=== PATIENT | male | born 1945 | race Caucasian/White ===

== ENCOUNTER 2016-11-16 10:54 | Emergency (ER) | payer OTHER ==
[~2016-11-16] VITALS: Ht 162.6 cm; Wt 57.4 kg
[~2016-11-16 10:54] MED LIST: ALBU0.5N2 NEB; ALBUAER19 INH; AMLO10TA4 PO; ASPI81TA28 PO; DOCU100C31 PO; FLUT27.5 NAE; HYDR-3983 PO; IPRA0.037 NAE; OMEP20CA9 PO; RANI150T3 PO; SIMV20TA2 PO; SULF800T23 PO; SYMIN8045 INH; TACR1CAP5 PO; TAMS0.4C38 PO; TEMA-79 PO; vitamin b12 PO
[2016-11-16 10:56] VITALS: BP 158/65; PULSE 73; TEMP 36.9; O2SAT 97; Ht 162.6 cm; Wt 57.4 kg
[2016-11-16] MEDS ORDERED: IPRA0.06 NAE (11:16)
[2016-11-16] MEDS ORDERED: ALBU0.633 NEB (11:16)
[2016-11-16] MEDS ORDERED: FLUT27.53 NAE (11:16)
[2016-11-16] MEDS ORDERED: VNTHFA/IN INH (11:16)
[2016-11-16] MEDS ORDERED: CYAN500T PO (11:29)
[2016-11-16] MEDS ORDERED: NZRCR TOP (11:29)
[2016-11-16] MEDS ORDERED: METO50TA16 PO (11:29)
[2016-11-16] MEDS ORDERED: KETO2SHA TOP (11:29)
[2016-11-16] MEDS ORDERED: ATOR-22 PO (11:29)
[2016-11-16] MEDS ORDERED: NTRGSL/4 UT (11:29)
[2016-11-16] MEDS ORDERED: [UNRECOGNIZED DRUG - CODE] TOP (11:29)
[2016-11-16] MEDS ORDERED: IPRASOL4 INH (11:29)
[2016-11-16] MEDS ORDERED: HYDCR1CL TOP (11:29)
--- NOTE | 2016-11-16 11:38 | EMERGENCY ROOM VISIT NOTE ---
ED Visit Note First contact with patient: 11:00 CHIEF COMPLAINT: Left Hand and wrist injury HISTORY OF PRESENT ILLNESS: This 71-year-old male patient presents to the emergency department, ambulatory, complaining of pain in the left hand and wrist after a fall 2 days ago. The patient states while walking into the bathroom, he tripped over a step stool, and fell on his outstretched hand. The patient states he did hit his head on the carpet, however the majority of the impact was on the patient's left hand and wrist. The patient denies dizziness, paresthesias, headache, visual disturbances, tinnitus, or other concerning head symptoms. The patient states he is having increased swelling and pain on the lateral aspect of the left hand, radiating into the wrist, and up the arm. The patient is able to move their wrist. The patient states the pain is throbbing and 8/10. No laceration, no weakness. No numbness or tingling. The patient denies any other injury. The patient is able to move their fingers and elbow without difficulty. The patient has not had a previous fracture to this wrist, but did have a forearm fracture. The patient has taken his regularly prescribed [place] 7.5/325 for the pain with only minimal improvement. The patient denies fever, warmth, open wound, body aches, chills. He states bruising and mild redness has been traveling up the arm. REVIEW OF SYSTEMS: A 6 system review of systems was performed with positives and pertinent negatives in the HPI. ALLERGIES: Bee venom MEDICATIONS: Please see list. I did personally review the patient's medications with him today at bedside. PMH: Heart disease, COPD, GERD, BPH, liver transplant, hyperlipidemia, hypertension SOCIAL HISTORY: The patient lives locally alone. He denies drug, alcohol use. The patient does admit to smoking one half pack cigarettes per day. PHYSICAL EXAM: Vital Signs: Reviewed Nurse's notes, vital signs stable. GENERAL : This is a 71-year-old male, in no acute distress, but appears to be in pain, well-developed, well-nourished. NEURO: Alert and oriented to person place and time. Normal sensation to light and sharp touch. Normal mini mental status exam. HEAD: Normocephalic. There are some superficial abrasions on the patient 's forehead. EYES: Pupils are equal round and reactive to light and accommodation. EOMs are full and optic discs and fundi are normal. There is no swelling or discoloration of the tissue surrounding the eyes. EARS: External auditory canals clear without blood. NOSE: Patent without tenderness. No septal hematoma. FACE: No facial tenderness. NECK: Supple. There is no cervical spine tenderness. The patient does not have tenderness with movement of the neck. MUSCULOSKELETAL: There is no deformity of the left wrist or hand. There is tenderness and edema over neural aspect of the hand, and the anterior aspect of the wrist. There is no snuff box tenderness. Range of motion is full, however patient is hesitant to move wrist due to pain. There is no tenderness of the elbow, hand or fingers. Health Sciences Manager strength 3/5. Radial pulse 2+. SKIN: Normal and intact. The hand is warm and well perfused with capillary refill less than 2 seconds. RADIOLOGY: X-Ray Left Hand: FINDINGS: Osteopenia. Degenerative changes of the first carpometacarpal joint and distal interphalangeal joint of the second finger. Altered configuration of the distal ulnar metaphysis, consistent with fracture deformity. Cortical step-off along the ventral aspect of the distal radial metaphysis best appreciated on lateral view. Mild apex volar angulation at the fracture site. IMPRESSION: 1. Distal radial metaphyseal fracture with apex volar angulation (Colles' fracture). 2. Deformity of the distal ulnar metaphysis may represent acute or chronic fracture deformity. 3. Osteopenia. X-Ray Left Wrist: FINDINGS: 5 views of left wrist are obtained. No prior studies are available for comparison at the time of dictation. The skeletal structures are osteopenic. There is chronic posttraumatic deformity of the distal radius and ulna. No definite acute fracture is clearly seen. There is significant soft tissue edema around the wrist. Chondrocalcinosis is noted in the triangular fibrocartilage. Moderate arthritic change is present at the first carpometacarpal articulation. A metallic foreign body projects over the second metacarpal on the AP view. IMPRESSION: 1. There is soft tissue swelling around the wrist. 2. There is chronic posttraumatic deformity of the distal left radius and ulna. Although no definite acute fracture line is seen, an acute on chronic fracture would be difficult to exclude. Clinical correlation will be required. Consider short-term radiographic follow-up. 3. Osteopenia and degenerative change as above. EMERGENCY DEPARTMENT COURSE: I examined the patient. An X-ray of the left hand and wrist was reviewed by myself and radiologist and showed Colles' fracture. An orthoglass volar splint was placed under my direction and the position was satisfactory. Neurovascular status rechecked and intact. The patient was discharged home in good condition. DIFFERENTIAL DIAGNOSIS: Fracture, contusion, sprain, cellulitis, head injury, and others DIAGNOSIS: Colles' fracture DISCHARGE INSTRUCTIONS & TREATMENT: ORTHOPEDIC INSTRUCTIONS: You may take your regularly prescribed Vicodin every 6 hours, but speak with your prescriber regarding this. Ibuprofen(Motrin, Advil) may be used for fever or pain. Use 600mg every six hours as needed. Take with food. Avoid using more than 2400mg in a 24 hour period. Do not use 2400mg per day for more than three consecutive days without physician direction. Prolonged inappropriate use can lead to stomach upset or ulcers. (AND/OR) Acetaminophen(Tylenol) may be used for fever or pain. Use 1000mg every six hours as needed. Avoid using more than 3000mg in a 24 hour period. *Take as directed by your PCP and surgeon. Ice compresses for 20 minutes at a time four times daily for 2-3 days. Rest and elevate your injury. Do not get the splint wet. If your splint feels excessively tight, you have worsening pain, develop numbness or tingling, or your digits appear blue, loosen the shabbir wrap. Then reapply the shabbir wrap gently without removing the splint. If your symptoms are not quickly relieved return to the ER for re- evaluation. Return to the ER immediately for any numbness, tingling, severe pain, extreme swelling in the extremity or as needed. Case Management scheduled you with a follow-up with [facility]. Please keep this appointment and follow-up with them for further management. Follow-up with your primary care physician in 2 to 3 days for a recheck of your current condition. Problem List Medical Problems: (1) Abdominal mass Status: Resolved (2) Emphysema of lung Status: Chronic (3) Hiatal hernia Status: Chronic (4) Hypertension Status: Chronic (5) Swelling of right hand Status: Resolved Surgical Problems: (1) H/O liver transplant Status: Resolved (2) Hx of CABG Status: Resolved Current/Historical Medications Scheduled Albuterol Sulfate (Albuterol Sulfate), 1 VIAL NEB Q6H Amlodipine Besylate (Norvasc), 10 MG PO QAM Atorvastatin (Lipitor), 10 MG PO QPM Budesonide/Formoterol Fumarate (Symbicort 80-4.5 Mcg/Act), 2 PUFFS INH BID [place] (Crude) ([place] Tar), 1 APPLN TOP Q2D Cyanocobalamin (Vitamin B-12), 500 MCG PO DAILY Docusate Sodium (Docusate Sodium), 100 MG PO BID Fluticasone Furoate (Flonase Sensimist), 2 SPRAY TWIN BID Hydrocortisone 1% (Hydrocortisone 1%), 1 APPLN TOP WK Ipratropium [place] (Nasal) (Ipratropium [place]), 2 SPRAY TWIN QID Ipratropium-Albuterol (Duoneb), 3 ML INH Q6H Ketoconazole (Ketoconazole), 1 APPLN TOP DAILY Ketoconazole (Topical) (Ketoconazole), 1 APPLN TOP Q2D Metoprolol Tartrate (Lopressor) (Lopressor), 50 MG PO BID Nitroglycerin (Nitrostat), 0.4 MG UT PRN Ranitidine Hcl (Zantac), 150 MG PO HS Sulfamethoxazole-Trimethoprim (Bactrim Ds 800MG/160MG), 1 TABLET PO 3XWK Tacrolimus (Prograf), 1 MG PO BID Tamsulosin Hcl (Flomax), 0.4 MG PO QPM Temazepam (Restoril), 1 TAB PO HS Scheduled PRN Hydrocodone/Acetaminophen 7.5MG/325MG ([place] 7.5MG/325MG), 1 TABLET PO Q8H PRN for Severe Pain Allergies Coded Allergies: Bee Venom (Verified Allergy, Unknown, Unknown, 06/03/15) Source-Reported by PT Uncoded Allergies: PEAS (Allergy, Unknown, UNKNOWN, 11/16/16) Vital Signs Date Time Temp Pulse Resp B/P (MAP) Pulse Ox O2 Delivery O2 Flow Rate FiO2 11/16/16 10:56 36.9 73 18 158/65 97 Room Air Departure Information Impression Primary Impression: Colles' fracture of left radius Dispostion Home / Self-Care Condition GOOD Referrals No Doctor, Assigned (PCP) Patient Instructions [facility] Additional Instructions ORTHOPEDIC INSTRUCTIONS: You may take your regularly prescribed Vicodin every 6 hours, but speak with your prescriber regarding this. Ibuprofen(Motrin, Advil) may be used for fever or pain. Use 600mg every six hours as needed. Take with food. Avoid using more than 2400mg in a 24 hour period. Do not use 2400mg per day for more than three consecutive days without physician direction. Prolonged inappropriate use can lead to stomach upset or ulcers. (AND/OR) Acetaminophen(Tylenol) may be used for fever or pain. Use 1000mg every six hours as needed. Avoid using more than 3000mg in a 24 hour period. *Take as directed by your PCP and surgeon. Ice compresses for 20 minutes at a time four times daily for 2-3 days. Rest and elevate your injury. Do not get the splint wet. If your splint feels excessively tight, you have worsening pain, develop numbness or tingling, or your digits appear blue, loosen the shabbir wrap. Then reapply the shabbir wrap gently without removing the splint. If your symptoms are not quickly relieved return to the ER for re- evaluation. Return to the ER immediately for any numbness, tingling, severe pain, extreme swelling in the extremity or as needed. Case Management scheduled you with a follow-up with [facility]. Please keep this appointment and follow-up with them for further management. Follow-up with your primary care physician in 2 to 3 days for a recheck of your current condition. Problem Qualifiers Primary Impression: Colles' fracture of left radius Encounter type: initial encounter Fracture type: closed Qualified Codes: S52.532A - Colles' fracture of left radius, initial encounter for closed fracture
--- NOTE | 2016-11-16 11:53 | DIAGNOSTIC IMAGING REPORT ---
LEFT HAND MIN 3 VIEWS ROUTINE CLINICAL HISTORY: 71 years-old Male presenting with swelling/pain s/p FOOSH. TECHNIQUE: Frontal, oblique, and lateral views of the left hand were obtained. COMPARISON: None. FINDINGS: Osteopenia. Degenerative changes of the first carpometacarpal joint and distal interphalangeal joint of the second finger. Altered configuration of the distal ulnar metaphysis, consistent with fracture deformity. Cortical step-off along the ventral aspect of the distal radial metaphysis best appreciated on lateral view. Mild apex volar angulation at the fracture site. IMPRESSION: 1. Distal radial metaphyseal fracture with apex volar angulation (Colles' fracture). 2. Deformity of the distal ulnar metaphysis may represent acute or chronic fracture deformity. 3. Osteopenia. Electronically signed by: Ciro Saha M.D. 11/16/2016 11:52 AM Dictated Date/Time: 11/16/2016 11:48 AM
--- NOTE | 2016-11-16 11:56 | DIAGNOSTIC IMAGING REPORT ---
LEFT WRIST 5 VIEWS CLINICAL HISTORY: Recent fall with left wrist pain. FINDINGS: 5 views of left wrist are obtained. No prior studies are available for comparison at the time of dictation. The skeletal structures are osteopenic. There is chronic posttraumatic deformity of the distal radius and ulna. No definite acute fracture is clearly seen. There is significant soft tissue edema around the wrist. Chondrocalcinosis is noted in the triangular fibrocartilage. Moderate arthritic change is present at the first carpometacarpal articulation. A metallic foreign body projects over the second metacarpal on the AP view. IMPRESSION: 1. There is soft tissue swelling around the wrist. 2. There is chronic posttraumatic deformity of the distal left radius and ulna. Although no definite acute fracture line is seen, an acute on chronic fracture would be difficult to exclude. Clinical correlation will be required. Consider short-term radiographic follow-up. 3. Osteopenia and degenerative change as above. Electronically signed by: Rome Armendariz M.D. 11/16/2016 11:54 AM Dictated Date/Time: 11/16/2016 11:49 AM
--- NOTE | 2016-11-16 23:26 | EMERGENCY ROOM VISIT NOTE ---
ED Visit Note First contact with patient: 11:00 HPI: left wrist/forearm pain, swelling after mechanical fall. PE: AFVSS, NAD Minor forehead abrasion RRR, no murmurs CTAB Abd soft NT/ND Ext: Mild edema to left wrist/forearm, distal pms intact. Neuro: grossly intact Plan: XRay with ?celeste fx. Plan for splint and ortho f/u. I reviewed the patient's past medical history, medications, and visit nursing notes. I discussed the case with the physician assistant press operator, examined the patient, and agree with the findings and plan as documented in the physician assistants note.
== END 2016-11-16 12:43 | disposition home or self-care (01) ==
LOC: C.EDB 10:55 → C.EDD 12:43
DX: S52.532A Colles' fracture of left radius, initial encounter for closed fracture (principal); W01.0XXA Fall on same level from slipping, tripping and stumbling without subsequent striking against object, initial encounter; I10 Essential (primary) hypertension; E78.5 Hyperlipidemia, unspecified; I51.9 Heart disease, unspecified; J44.9 Chronic obstructive pulmonary disease, unspecified; K21.9 Gastro-esophageal reflux disease without esophagitis; J43.9 Emphysema, unspecified; F17.200 Nicotine dependence, unspecified, uncomplicated; Z94.4 Liver transplant status; Z79.899 Other long term (current) drug therapy; Z95.1 Presence of aortocoronary bypass graft; Z91.030 Bee allergy status

== ENCOUNTER → 2016-11-25 | Outpatient (CLI) | payer OTHER ==
[~2016-11-25] MED LIST changes: -ALBU0.5N2 NEB; +ALBU0.633 NEB; -ALBUAER19 INH; -ASPI81TA28 PO; +ATOR-22 PO; +CYAN500T PO; -FLUT27.5 NAE; +FLUT27.53 NAE; +HYDCR1CL TOP; -IPRA0.037 NAE; +IPRA0.06 NAE; +IPRASOL4 INH; +KETO2SHA TOP; +METO50TA16 PO; +NTRGSL/4 UT; +NZRCR TOP; -OMEP20CA9 PO; -SIMV20TA2 PO; +[UNRECOGNIZED DRUG - CODE] TOP; -vitamin b12 PO
== END | disposition home or self-care (01) ==
LOC: C.RDSM 11:00
PROVIDERS: ATTEND Physical Medicine & Rehabilitation Sports Medicine
DX: S60.212A Contusion of left wrist, initial encounter (principal); X58.XXXA Exposure to other specified factors, initial encounter

== ENCOUNTER 2019-09-06 09:14 | Observation (INO) ==
[2019-09-06] MEDS ORDERED: NITROGLYCERIN SL 0.4 MG/TAB TAB SL STA ×2 (09:36→10:22)
[2019-09-06] MEDS ORDERED: ASPIRIN CHEW 324 MG PO STA (09:36)
--- NOTE | 2019-09-06 09:44 | Emergency Department Note ---
History of Present Illness General Chief Complaint: Chest Pain Stated Complaint: Endo patient, Chest pain Time Seen by Provider: 09/06/19 09:16 History of Present Illness Provider Complaint: chest pain Onset (ago): hour(s) 2 Duration: improved Onset: during rest Pain Location: left chest Pain Radiation: none Severity: moderate Maximum Pain Intensity: 6 Current Pain Intensity: 0 Quality: + tightness Relieved By: + nitroglycerin Exacerbated By: + nothing Context: no recent illness, no recent surgery, no recent immobilization, no recent travel, no trauma/injury, no new medications and no history of DVT/PE Associated symptoms: + dyspnea; no nausea, no diaphoresis, no syncope and no cough 74-year-old male with history of liver transplant presents to the emergency department for chest pain. Patient was in the preop area for colonoscopy and endoscopy earlier today and started having chest pain. He is brought back to the endoscopy suite where he continued to have chest pain. Anesthesia became concerned and gave him 1 sublingual nitro conduct an EKG and then brought him down to the emergency department. Home Medications Home Medications Medication Instructions Recorded Confirmed Type docusate sodium 100 mg PO BID PRN #0 06/16/13 09/06/19 History hydrocodone-acetaminophen 1 tab PO QID PRN #0 tab 06/16/13 09/06/19 History tamsulosin [Flomax] 0.8 mg PO HS #0 cap 05/04/15 09/06/19 History atorvastatin [Lipitor] 10 mg PO DAILY #0 tab 11/16/16 09/06/19 History cyanocobalamin (vitamin B-12) 500 mcg PO DAILY #0 tab 11/16/16 09/06/19 History ipratropium bromide 2 spray INTRANASAL TID #0 11/16/16 09/06/19 History metoprolol tartrate 25 mg PO BID #0 11/16/16 09/06/19 History nitroglycerin 0.4 mg SUBLINGUAL TID PRN #0 11/16/16 09/06/19 History albuterol sulfate 2 puff INHALATION Q6H PRN #0 10/19/17 09/06/19 History cetirizine [Zyrtec] 10 mg PO DAILY #0 10/19/17 09/06/19 History lisinopril 10 mg PO QAM 09/07/18 09/06/19 History tacrolimus 1 mg PO Q12H 09/07/18 09/06/19 History aspirin 81 mg PO QAM 10/23/18 09/06/19 History fluticasone propionate 1 spray INTRANASAL DAILY 10/23/18 09/06/19 History gabapentin 100 mg PO HS 10/23/18 09/06/19 History ipratropium-albuterol 3 ml INHALATION QID PRN 10/23/18 09/06/19 History isosorbide mononitrate 60 mg PO QAM 10/23/18 09/06/19 History sodium bicarbonate 1,300 mg PO BID 10/23/18 09/06/19 History tiotropium 2.5 mcg-olodaterol 2.5 2 puffs INH DAILY 03/20/19 09/06/19 History mcg/actuation mist for inhalation peg 3350-electrolytes 236 240 ml PO .COMPLEX #4000 ml 09/03/19 09/06/19 Rx gram-22.74 gram-6.74 gram-5.86 gram solution Allergies Allergy/AdvReac Type Severity Reaction Status Date / Time bee venom protein (honey bee) Allergy Mild swelling Verified 09/06/19 10:48 aspirin AdvReac Intermediate INTERNAL Verified 09/06/19 10:48 BLEEDING, TOLD NOT TO TAKE LG DOSE peas AdvReac nausea and Verified 09/06/19 10:48 vomiting Past Med/Surg History Medical History (Updated 09/06/19 @ 11:31 by Pipo Acevedo) Anemia CAD (coronary artery disease), [place] coronary artery CKD (chronic kidney disease) stage 4, GFR 15-29 ml/min Colon cancer radiation - a few months ago follows with cancer center COPD exacerbation (Inactive) Degenerative disc disease Dysphagia Hiatal hernia (Chronic) History of cirrhosis of liver Kidney failure no dialysis Lung nodule just watching Myocardial Infarction 2011 (FOUND ON EKG/PT DID NOT KNOW) Poor historian Swelling of right hand (Resolved) Surgical History H/O liver transplant (Resolved) 1992 History of anesthesia reaction URINARY RETENTION History of bronchoscopy History of cataract surgery RT/LEFT History of cholecystectomy History of colonoscopy History of coronary artery bypass graft 2013 cabg x 2 [facility] History of esophagogastroduodenoscopy (EGD) History of heart artery stent X 2 2012 History of liver biopsy History of open reduction and internal fixation (ORIF) procedure LEFT HIP History of tonsillectomy History of tooth extraction Patella fracture REPAIRED Family History Mother , age 92 old age Family history of diabetes mellitus Brother , diabetes does not remember age Family history of diabetes mellitus Cancer Father , CVA does not remember age No problems noted. Brother , age early 40s lymph nodes No problems noted. Sister , unknown No problems noted. Sister , COPD No problems noted. Sister No problems noted. Son No problems noted. Son No problems noted. Daughter No problems noted. Daughter No problems noted. 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 Feels Safe at Home: Yes Smoking Status: Current every day smoker Tobacco Type: cigarettes ; Age Started Using Tobacco: 13 ; Cigarettes Per Day: 1 1/2 pp a week ; Second Hand Exposure: No ; Hx Alcohol Use: No Hx Substance Use: No Childhood Exposure to Second-Hand Smoke: Yes caffeine: Yes (coffee twice a week ) during the past year weight has: decreased > 10 lbs Dental Care, Regularly: No Seatbelt Use: always Sunscreen Use: No Review of Systems A total of 10 systems reviewed and were otherwise negative Physical Exam Vital Signs Vital Signs - 24 hr 09/06/19 09:10 09/06/19 10:14 09/06/19 10:20 Temperature 37 C Temperature Source Oral Pulse Rate 69 98 H Pulse Rate [Apical] 98 H 73 Pulse Rhythm Regular Regular Pulse Rhythm [Apical] Regular Regular Pulse Strength Normal Pulse Strength [Apical] Normal Normal Respiratory Rate 16 18 22 Respiratory Effort / Characteristics Non-Labored Spontaneous Non-Labored Spontaneous Non-Labored Spontaneous Respiratory Depth Normal Normal Normal Respiratory Pattern Regular Regular Regular Blood Pressure 176/75 H Blood Pressure [Left Arm] 153/53 H 194/69 H Blood Pressure Mean 108 Blood Pressure Mean [Left Arm] 86 110 Blood Pressure Position Lying Blood Pressure Position [Left Arm] Sitting Lying Pulse Oximetry 100 96 100 Oxygen Delivery Method Oxymask Room Air Nasal Cannula Oxygen Flow Rate 2 2 Sepsis Recent Fever Within 48 Hours No Sepsis New/Unexplained Change in Mental Status No Sepsis Action Taken by Nursing No Action Required Physical Exam GENERAL: He is oriented to person, place, and time. He appears well-developed and well-nourished. He does not appear distressed. HENT: Exam performed. - Head: Normocephalic and atraumatic. - Right Ear: External ear normal. No mastoid tenderness. - Left Ear: External ear normal. No mastoid tenderness. - Mouth/Throat: The oropharynx is clear and moist. No trismus in the jaw. No dental abscesses or uvula swelling. No oropharyngeal exudate or tonsillar a bscesses. EYES: Conjunctivae and EOM are normal. Pupils are equal, round, and reactive to light. Right eye exhibits no discharge. Left eye exhibits no discharge. No scleral icterus. NECK: Normal range of motion. Neck supple. No JVD present. No spinous process tenderness present. No carotid bruit present. No rigidity. No tracheal deviation and normal range of motion present. No Brudzinski's sign and no Kernig's sign noted. CV: Normal rate, regular rhythm, normal heart sounds and intact distal pulses. There is no peripheral edema. Palpable radial pulses bue. PULM/CHEST: Effort normal and breath sounds normal. No respiratory distress. No stridor. He has no wheezes. He has no rales. - Chest Wall: He exhibits no tenderness. ABD: The abdomen is soft. Bowel sounds are normal. He has no distension. No mass is present. There is no tenderness. There is no rebound, no guarding, no Choudhary's sign and no tenderness at McBurney's point. Rovsig negative. MUSC/SKEL: Normal range of motion. There is no peripheral edema, tenderness or deformity. LYMPH: No cervical adenopathy. NEURO: He is alert and oriented to person, place, and time. He has normal strength. No cranial nerve deficit or sensory deficit. Coordination and gait normal. GCS eye subscore is 4. GCS verbal subscore is 5. GCS motor subscore is 6. Cerebellar tests wnl. SKIN: Skin is warm and dry. He is not diaphoretic. PSYCH: He has a normal mood and affect. Behavior is normal. Judgment and thought content normal. Course Course 0915: The patient was evaluated in room C12. A complete history and physical exam was performed. Prior to patient arrival anesthesiologist who was with the patient in the endoscopy suite came and informed about the patient. He did bring his EKG done that he conducted in the endoscopy suite. EKG showed a sinus rhythm with rate of 70. GA 176, QRS 150, QTc 496. Left bundle branch block present. Scar Bosa negative. I compared this EKG to an EKG from July 2019 which showed no significant change. 0938: Patient reported to the nursing staff that his chest pain is returning. 1 sublingual nitro and 1 aspirin 3 and 24 mg ordered for the patient. 1020: Vital signs stable. Labs and imaging within normal limits. Reports from nursing staff patient is reporting increasing chest pain again. Patient given another sublingual nitro and 2 mg morphine IV. We will plan on admitting the patient for chest pain. 1045: Vital signs stable. Discussed with Dr. Rankin [facility] hospitalist who agreed to admit the patient. Administered Medications Discontinued Medications Aspirin (Aspirin) 324 mg PO NOW STA Stop: 09/06/19 09:37 Last Admin: 09/06/19 09:40 Dose: 324 mg Documented by: [id number] Morphine Sulfate (Morphine Sulfate) 2 mg IV NOW STA Stop: 09/06/19 10:23 Last Admin: 09/06/19 10:26 Dose: 2 mg Documented by: [id number] Nitroglycerin (Nitrostat) 0.4 mg SL NOW STA Stop: 09/06/19 09:37 Last Admin: 09/06/19 09:40 Dose: 0.4 mg Documented by: [id number] Nitroglycerin (Nitrostat) 0.4 mg SL NOW STA Stop: 09/06/19 10:23 Last Admin: 09/06/19 10:24 Dose: 0.4 mg Documented by: [id number] Medical Decision Making Laboratory Data Result diagrams: 09/06/19 09:37 09/06/19 09:37 Labs: Lab Results 09/06/19 09/06/19 09/06/19 Range/Units 09:37 09:37 09:37 WBC 4.09 L (4.8-10.8) K/uL RBC 3.15 L (4.7-6.1) M/uL Hgb 9.2 L (14.0-18.0) g/dL Hct 27.4 L (42-52) % MCV 87.0 (80-100) fL MCH 29.2 (25-34) pg MCHC 33.6 (32-36) g/dL RDW Std Deviation 47.0 H (36.4-46.3) fL RDW Coeff of Álvaro 14.7 H (11.5-14.5) % Plt Count 169 (130-400) K/uL MPV 8.2 (7.4-10.4) fL Immature Gran % (Auto) 0.2 % Neut % (Auto) 72.0 % Lymph % (Auto) 15.6 % Isabella % (Auto) 11.0 % Eos % (Auto) 1.0 % Baso % (Auto) 0.2 % Immature Gran # (Auto) 0.01 (0.00-0.02) K/uL Neut # (Auto) 2.94 (1.4-6.5) K/uL Lymph # (Auto) 0.64 L (1.2-3.4) K/uL Isabella # (Auto) 0.45 (0.11-0.59) K/uL Eos # (Auto) 0.04 (0-0.5) K/uL Baso # (Auto) 0.01 (0-0.2) K/uL PT 11.4 (9.0-12.0) Seconds INR 1.1 (0.9-1.1) APTT 35.6 H (21.0-31.0) Seconds PTT Ratio 1.3 Sodium 133 L (136-145) mmol/L Potassium 4.7 (3.5-5.1) mmol/L Chloride 104 (98-107) mmol/L Carbon Dioxide 22 (21-32) mmol/L Anion Gap 7.0 (3-11) BUN 23 H (7-18) mg/dl Creatinine 2.27 H (0.6-1.4) mg/dl Est Cr Clr Drug Dosing 23.8 ml/min Est GFR ( Amer) 31.5 Est GFR (Non-Af Amer) 27.2 BUN/Creatinine Ratio 10.1 (10-20) Glucose 91 (70-99) mg/dl Calcium 8.6 (8.5-10.1) mg/dl Troponin I < 0.015 (0-0.045) ng/ml Lipase 59 L (73-393) U/L Imaging Data Chest x-ray: Radiologist's impression: XR chest 1V portable CLINICAL HISTORY: Chest Pain COMPARISON STUDY: 07/12/2019 FINDINGS: Prior median sternotomy. Lungs are clear. The diaphragms are smooth. IMPRESSION: No acute process. ACT 112: Negative or not required by law. The above report was generated using voice recognition software. It may contain grammatical, syntax or spelling errors. Electronically signed by: Yousuf Lawrence M.D. 09/06/2019 9:49 AM Dictated: 09/06/19948 Transcribed: 09/06/19948 ECG Data Rate (beats per minute): 71 Rhythm: normal sinus Findings: + LBBB (Established, sgarbosa negative.); no ST depression and no ST elevation Change: no significant change (EKG was done earlier today and in July 2019.) [facility] Narrative 0915: The patient was evaluated in room C12. A complete history and physical exam was performed. Prior to patient arrival anesthesiologist who was with the patient in the endoscopy suite came and informed about the patient. He did bring his EKG done that he conducted in the endoscopy suite. EKG showed a sinus rhythm with rate of 70. GA 176, QRS 150, QTc 496. Left bundle branch block present. Scar Bosa negative. I compared this EKG to an EKG from July 2019 which showed no significant change. 0938: Patient reported to the nursing staff that his chest pain is returning. 1 sublingual nitro and 1 aspirin 3 and 24 mg ordered for the patient. 1020: Vital signs stable. Labs and imaging within normal limits. Reports from nursing staff patient is reporting increasing chest pain again. Patient given another sublingual nitro and 2 mg morphine IV. We will plan on admitting the patient for chest pain. 1045: Vital signs stable. Discussed with Dr. Rankin [facility] hospitalist who agreed to admit the patient. Impression & Plan Chest pain Discharge Plan Visit Data Chief Complaint: Chest Pain Stated Complaint: Endo patient, Chest pain ED Provider: Pipo Acevedo Discharge Problem: Chest pain Patient Disposition: Being Evaluated by Hospitalist Forms Stand Alone Forms: [facility] [place] Prescriptions Prescriptions: No Action tiotropium-olodaterol 2.5-2.5 mcg/actuation mist 2 puffs INH DAILY RF: 0 hydrocodone-acetaminophen 7.5-325 mg Tablet 1 tab PO QID PRN (Reason: Allergy Symptoms) Qty: 0 RF: 0 docusate sodium 100 mg Tablet 100 mg PO BID PRN (Reason: Constipation) Qty: 0 RF: 0 tamsulosin [Flomax] 0.4 mg Capsule 0.8 mg PO HS Qty: 0 RF: 0 ipratropium bromide 0.03 % [place],Non-Aerosol 2 spray INTRANASAL TID Qty: 0 RF: 0 atorvastatin [Lipitor] 10 mg Tablet 10 mg PO DAILY Qty: 0 RF: 0 cyanocobalamin (vitamin B-12) 500 mcg Tablet 500 mcg PO DAILY Qty: 0 RF: 0 nitroglycerin 0.4 mg Tablet, Sublingual 0.4 mg sublingual TID PRN (Reason: Chest Pain) Qty: 0 RF: 0 metoprolol tartrate 25 mg Tablet 25 mg PO BID Qty: 0 RF: 0 cetirizine [Zyrtec] 10 mg Tablet 10 mg PO DAILY Qty: 0 RF: 0 albuterol sulfate 90 mcg/actuation Hfa Aerosol Inhaler 2 puff INHALATION Q6H PRN (Reason: copd) Qty: 0 RF: 0 peg 3350-electrolytes [Golytely] 236-22.74-6.74 -5.86 gram recon soln 240 ml PO .COMPLEX Qty: 4000 RF: 0 lisinopril 10 mg Tablet 10 mg PO QAM RF: 0 tacrolimus 1 mg Capsule 1 mg PO Q12H RF: 0 ipratropium-albuterol 0.5 mg-3 mg(2.5 mg base)/3 mL Solution For Nebulization 3 ml INHALATION QID PRN (Reason: Shortness Of Breath) RF: 0 aspirin 81 mg Tablet,Delayed Release (Dr/Ec) 81 mg PO QAM RF: 0 isosorbide mononitrate 60 mg Tablet Extended Release 24 Hr 60 mg PO QAM RF: 0 sodium bicarbonate 650 mg Tablet 1,300 mg PO BID RF: 0 gabapentin 100 mg Capsule 100 mg PO HS RF: 0 fluticasone propionate 50 mcg/actuation [place],Suspension 1 spray INTRANASAL DAILY RF: 0 Referrals Referrals: Imelda Lama PA-C [Primary Care Provider] - Discharge Problem: Chest pain Qualifiers: Chest pain type: unspecified Qualified Code(s): R07.9 - Chest pain, unspecified
--- NOTE | 2019-09-06 09:51 | XRay Report ---
XR chest 1V portable CLINICAL HISTORY: Chest Pain COMPARISON STUDY: 07/12/2019 FINDINGS: Prior median sternotomy. Lungs are clear. The diaphragms are smooth. IMPRESSION: No acute process. ACT 112: Negative or not required by law. The above report was generated using voice recognition software. It may contain grammatical, syntax or spelling errors. Electronically signed by: Yousuf Lawrence M.D. 09/06/2019 9:49 AM
[2019-09-06 09:52] LABS: Basophils # (auto) 0.01 K/uL (0-0.2); Basophils % (auto) 0.2 %; Eosinophils # (auto) 0.04 K/uL (0-0.5); Hematocrit (blood only) 27.4 % (42-52); Hemoglobin 9.2 g/dL (14.0-18.0); Immature Granulocytes # (auto) 0.01 K/uL (0.00-0.02); Immature Granulocytes % (auto) 0.2 %; Lymphocytes # (auto) 0.64 K/uL (1.2-3.4); Lymphocytes % (auto) 15.6 %; Mean Corpuscular Hemoglobin 29.2 pg (25-34); Mean Corpuscular Hgb Conc 33.6 g/dL (32-36); Mean Platelet Volume 8.2 fL (7.4-10.4); Monocytes # (auto) 0.45 K/uL (0.11-0.59); Neutrophils # (auto) 2.94 K/uL (1.4-6.5); Platelet Count 169 K/uL (130-400); RDW Coefficient of Variation 14.7 % (11.5-14.5); Red Blood Count 3.15 M/uL (4.7-6.1); White Blood Count 4.09 K/uL (4.8-10.8)
[2019-09-06 09:58] LABS: INR 1.1 (0.9-1.1); Partial Thromboplastin Ratio 1.3; Partial Thromboplastin Time 35.6 Seconds (21.0-31.0); Prothrombin Time 11.4 Seconds (9.0-12.0)
[2019-09-06 10:15] LABS: BUN Creatinine Ratio 10.1 (10-20); Blood Urea Nitrogen 23 mg/dl (7-18); Calcium 8.6 mg/dl (8.5-10.1); Carbon Dioxide 22 mmol/L (21-32); Chloride 104 mmol/L (98-107); Creatinine Clr Calc Pharmacy 23.8 ml/min; Est GFR (African American) 31.5; Est GFR (Non-African American) 27.2; Glucose 91 mg/dl (70-99); Lipase 59 U/L (73-393); Potassium 4.7 mmol/L (3.5-5.1); Sodium 133 mmol/L (136-145)
[2019-09-06 10:20] LABS: Troponin I < 0.015 ng/ml (0-0.045)
[2019-09-06] MEDS ORDERED: MoRPHine SULFATE 2 MG/ML CARP IV STA (10:22)
--- NOTE | 2019-09-06 11:10 | History & Physical Report ---
Date of Service September 06, 2019 Assessment & Plan (1) Unstable angina: This patient is a 74-year-old male with a history of CAD status post CABG and angioplasty, chronic LBBB, mild LV dysfunction with EF 40-45%, moderate MR, CKD stage IV, COPD, current smoker, lung cancer status post radiation therapy, anemia, liver transplant for cirrhosis in 1992, hyperlipidemia, and BPH, who presents to the ER with substernal severe chest pressure. His chest pain started when he was in the endoscopy suite this morning preparing to have an EGD for recent symptoms of dysphagia and anemia. He reports the pain is been an 8 out of 10 in severity, across his whole chest, felt like a pressure, and was ass ociated with increased shortness of breath. He had no diaphoresis or nausea. It did not radiate to the jaw or the upper extremities. It was relieved within 2 minutes with a sublingual nitroglycerin given by anesthesia. He was then transported to the ER. He again had a recurrence of similar chest pressure in the ER which was again relieved with 2 sublingual nitroglycerin tablets and 2 mg of IV morphine. His blood pressure was quite elevated at 194/69 in the ER. He reports he did not take any of his morning medications due to the upcoming endoscopies. A chest x-ray was negative for acute disease. Troponin was negative. ECG showed chronic LBBB with negative Sgarbossa criteria. His creatinine is elevated but is at his baseline of 2.27. Review of echocardiogram from 05/30/2018 shows LVEF 40-45% with mild LV dilation, dilated aortic root 3.6 cm, mild to moderate AI, moderate MR, mild to moderate Pulm HTN Review of outside cardiac catheterization from 11/07/2013 which was just prior to his CABG showed: 99% in-stent restenosis of proximal LAD s/p balloon angioplasty to lesion with residual 70% stenosis remaining, calcified lesion not amenable to PCI; known 100% occlusion of proximal RCA -Admit to PCU on telemetry for arrhythmia monitoring for unstable angina -Serial troponin -Obtain resting transthoracic echocardiogram -Consult cardiology given complex case and with CKD stage IV, would not be the greatest candidate for cardiac catheterization-I have discussed the case with the on-call rope machine setter at the time of admission -He did not take his morning medications given his EGD/colonoscopy prep-we will order his home metoprolol, isosorbide, and lisinopril for first dose now -Continue home aspirin, atorvastatin-should be on a higher intensity dose of atorvastatin if can tolerate -Encouraged smoking cessation -Of note, he had been on amlodipine previously a couple of months ago but it was discontinued for persistent lightheadedness -Will give Nitropaste if chest pain recurs (2) Hypertension: Blood pressures significantly elevated on arrival as above -Did not take home medications this morning -Restart home metoprolol 25 mg p.o. twice daily, lisinopril 10 mg p.o. daily, and isosorbide 60 mg once daily now -Follow and will likely titrate up on antianginal medications -As above, did not tolerate amlodipine in the past due to persistent lightheadedness (3) CAD (coronary artery disease), [place] coronary artery: Status post stent to the proximal LAD prior to 2013, with in-stent restenosis, known 100% RCA occlusion, subsequent two-vessel CABG in 2013 at the [facility] [place] -Has not followed with rope machine setter in [place] in several years -Aspirin, statin, beta-eder, lisinopril as above -Consult cardiology (4) CKD (chronic kidney disease) stage 4, GFR 15-29 ml/min: Creatinine seems at baseline here today at 2.2 -Continue sodium bicarbonate Continue lisinopril -Avoid nephrotoxins -renally dose meds when appropriate -follow BMP (5) COPD (chronic obstructive pulmonary disease) with emphysema: Stable, mild wheezing on examination, not on oxygen at home but was placed on oxygen here for angina -Wean off oxygen as tolerated -Continue PRN duo nebs -Continue home tiotropium/olodaterol 2 puffs once daily (6) Hyperlipidemia: Continue statin consider increasing high intensity given severe CAD (7) BPH (benign prostatic hyperplasia): Stable -Continue home tamsulosin -Follow for signs of urinary retention (8) Cancer of right lung parenchyma: With right upper lobe squamous cell carcinoma now status post stereotactic radiation therapy with resolution -Discharge from radiation oncology Follow-up as an outpatient with pulmonology -Encourage smoking cessation (9) Dysphagia: With pills only Was to have a EGD on the day of admission -Follow-up as an outpatient with GI Does fine with liquids and solids (10) Anemia: Hemoglobin stable from previous at 9.2, normocytic No GI bleeding as per patient and recent GI notes Was to have EGD/colonoscopy today which was canceled due to chest pain Likely secondary to chronic kidney disease Follow-up as an outpatient -Monitor CBC while here (11) H/O liver transplant: In 1992, performed for cirrhosis Stable on this -Continue home tacrolimus (12) Current smoker: Encourage cessation, he has been cutting back -Can have nicotine patch if desires (13) DVT prophylaxis: Heparin SQ, SCDs Disposition-admit to PCU for observation History of Present Illness Chief Complaint: Chest pain Primary Care Provider: Imelda Lama PA-C This patient is a 74-year-old male with a history of CAD status post CABG and angioplasty, chronic LBBB, mild LV dysfunction with EF 40-45%, moderate MR, CKD stage IV, COPD, current smoker, lung cancer status post radiation therapy, anemia, liver transplant for cirrhosis in 1992, hyperlipidemia, and BPH, who presents to the ER with substernal severe chest pressure. His chest pain started when he was in the endoscopy suite this morning preparing to have an EGD for recent symptoms of dysphagia and anemia. He reports the pain is been an 8 out of 10 in severity, across his whole chest, felt like a pressure, and was associated with increased shortness of breath. He had no diaphoresis or nausea. It did not radiate to the jaw or the upper extremities. It was relieved within 2 minutes with a sublingual nitroglycerin given by anesthesia. He was then transported to the ER. He again had a recurrence of similar chest pressure in the ER which was again relieved with 2 sublingual nitroglycerin tablets and 2 mg of IV morphine. His blood pressure was quite elevated at 194/69 in the ER. He reports he did not take any of his morning medications due to the upcoming endoscopies. A chest x-ray was negative for acute disease. Troponin was negative. ECG showed chronic LBBB with negative Sgarbossa criteria. His creatinine is elevated but is at his baseline of 2.27. He will be admitted on observation for unstable angina for further evaluation and treatment. Allergies Allergy/AdvReac Type Severity Reaction Status Date / Time bee venom protein (honey bee) Allergy Mild swelling Verified 09/06/19 10:48 aspirin AdvReac Intermediate INTERNAL Verified 09/06/19 10:48 BLEEDING, TOLD NOT TO TAKE LG DOSE peas AdvReac nausea and Verified 09/06/19 10:48 vomiting Home Medications Home Medications Medication Instructions Recorded Confirmed Type docusate sodium 100 mg PO BID PRN #0 06/16/13 09/06/19 History hydrocodone-acetaminophen 1 tab PO QID PRN #0 tab 06/16/13 09/06/19 History tamsulosin [Flomax] 0.8 mg PO HS #0 cap 05/04/15 09/06/19 History atorvastatin [Lipitor] 10 mg PO DAILY #0 tab 11/16/16 09/06/19 History cyanocobalamin (vitamin B-12) 500 mcg PO DAILY #0 tab 11/16/16 09/06/19 History ipratropium bromide 2 spray INTRANASAL TID #0 11/16/16 09/06/19 History metoprolol tartrate 25 mg PO BID #0 11/16/16 09/06/19 History nitroglycerin 0.4 mg SUBLINGUAL TID PRN #0 11/16/16 09/06/19 History albuterol sulfate 2 puff INHALATION Q6H PRN #0 10/19/17 09/06/19 History cetirizine [Zyrtec] 10 mg PO DAILY #0 10/19/17 09/06/19 History lisinopril 10 mg PO QAM 09/07/18 09/06/19 History tacrolimus 1 mg PO Q12H 09/07/18 09/06/19 History aspirin 81 mg PO QAM 10/23/18 09/06/19 History fluticasone propionate 1 spray INTRANASAL DAILY 10/23/18 09/06/19 History gabapentin 100 mg PO HS 10/23/18 09/06/19 History ipratropium-albuterol 3 ml INHALATION QID PRN 10/23/18 09/06/19 History isosorbide mononitrate 60 mg PO QAM 10/23/18 09/06/19 History sodium bicarbonate 1,300 mg PO BID 10/23/18 09/06/19 History tiotropium 2.5 mcg-olodaterol 2.5 2 puffs INH DAILY 03/20/19 09/06/19 History mcg/actuation mist for inhalation peg 3350-electrolytes 236 240 ml PO .COMPLEX #4000 ml 09/03/19 09/06/19 Rx gram-22.74 gram-6.74 gram-5.86 gram solution Past Med/Surg History Medical History Anemia CAD (coronary artery disease), [place] coronary artery CKD (chronic kidney disease) stage 4, GFR 15-29 ml/min Colon cancer radiation - a few months ago follows with cancer center COPD exacerbation (Inactive) Degenerative disc disease Dysphagia Hiatal hernia (Chronic) History of cirrhosis of liver Kidney failure no dialysis Lung nodule just watching Myocardial Infarction 2011 (FOUND ON EKG/PT DID NOT KNOW) Poor historian Swelling of right hand (Resolved) Surgical History H/O liver transplant (Resolved) 1992 History of anesthesia reaction URINARY RETENTION History of bronchoscopy History of cataract surgery RT/LEFT History of cholecystectomy History of colonoscopy History of coronary artery bypass graft 2013 cabg x 2 [facility] History of esophagogastroduodenoscopy (EGD) History of heart artery stent X 2 2012 History of liver biopsy History of open reduction and internal fixation (ORIF) procedure LEFT HIP History of tonsillectomy History of tooth extraction Patella fracture REPAIRED Family History Mother , age 92 old age Family history of diabetes mellitus Brother , diabetes does not remember age Family history of diabetes mellitus Cancer Father , CVA does not remember age No problems noted. Brother , age early 40s lymph nodes No problems noted. Sister , unknown No problems noted. Sister , COPD No problems noted. Sister No problems noted. Son No problems noted. Son No problems noted. Daughter No problems noted. Daughter No problems noted. 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, is a [employer] Feels Safe at Home: Yes Smoking Status: Current every day smoker Tobacco Type: cigarettes ; Age Started Using Tobacco: 13 ; Cigarettes Per Day: 1 1/2 pp a week ; Second Hand Exposure: No ; Hx Alcohol Use: Yes Alcohol type: beer Alcohol Intake Frequency Comment: 1-2 beers per week Hx Substance Use: No Childhood Exposure to Second-Hand Smoke: Yes caffeine: Yes (coffee twice a week ) during the past year weight has: decreased > 10 lbs Dental Care, Regularly: No Seatbelt Use: always Sunscreen Use: No Review of Systems Review of Systems: All systems reviewed & are unremarkable except as noted in HPI & below Denies headache or lightheadedness, no sore throat or cough or cold symptoms, no fevers. No nausea or vomiting, no abdominal pains, no difficulty with urination. Typically can walk around his apartment and walked from the parking lot into the hospital today without any chest pain. Has chronic dyspnea. Physical Exam Constitutional: average body habitus; no acute distress (Very pleasant) Eyes: PERRL, conjunctivae normal, anicteric sclerae ENMT: external ear and nose normal, oropharynx normal Neck: trachea midline, no thyromegaly Respiratory: normal respiratory effort Auscultation: + diminished lung sounds (Throughout) and + wheezes (A few scattered bilateral expiratory wheezes); no crackles and no rhonchi Cardiovascular: Rate/Rhythm: regular rate and regular rhythm Heart Sounds: + murmur (2/6 systolic murmur at the lower sternal border) Vessels: dorsalis pedis pulses present (2+ DP pulses bilaterally); no JVD Extremities: + edema (Trace pitting edema of the legs to the proximal tibia right greater than left) Chest (Breasts): Chest: + abnormal inspection of chest (Midline sternotomy sca r) Gastrointestinal (Abdomen): normal bowel sounds, soft, nontender, no hepatosplenomegaly Musculoskeletal: Extremities: extremities normal to inspection; no cyanosis and no clubbing Skin: no rashes, warm and dry Neurologic: moves all extremities and awake; no focal motor deficits Psychiatric: A+Ox3, euthymic affect Lymphatic: no lymphedema Results & Data Results & Data ([facility]) Vital Signs (Past 12 Hours) Vital Signs Temp Pulse Pulse Resp BP BP Pulse Ox 09/06/19 10:20 73 22 194/69 H 100 09/06/19 10:14 98 H 98 H 18 153/53 H 96 09/06/19 09:10 37 C 69 16 176/75 H 100 Laboratory Results 09/06/19 09/06/19 09/06/19 Range/Units 09:37 09:37 09:37 WBC 4.09 L (4.8-10.8) K/uL RBC 3.15 L (4.7-6.1) M/uL Hgb 9.2 L (14.0-18.0) g/dL Hct 27.4 L (42-52) % MCV 87.0 (80-100) fL MCH 29.2 (25-34) pg MCHC 33.6 (32-36) g/dL RDW Std Deviation 47.0 H (36.4-46.3) fL RDW Coeff of Álvaro 14.7 H (11.5-14.5) % Plt Count 169 (130-400) K/uL MPV 8.2 (7.4-10.4) fL Immature Gran % (Auto) 0.2 % Neut % (Auto) 72.0 % Lymph % (Auto) 15.6 % [place] % (Auto) 11.0 % Eos % (Auto) 1.0 % Baso % (Auto) 0.2 % Immature Gran # (Auto) 0.01 (0.00-0.02) K/uL Neut # (Auto) 2.94 (1.4-6.5) K/uL Lymph # (Auto) 0.64 L (1.2-3.4) K/uL [place] # (Auto) 0.45 (0.11-0.59) K/uL Eos # (Auto) 0.04 (0-0.5) K/uL Baso # (Auto) 0.01 (0-0.2) K/uL PT 11.4 (9.0-12.0) Seconds INR 1.1 (0.9-1.1) APTT 35.6 H (21.0-31.0) Seconds PTT Ratio 1.3 Sodium 133 L (136-145) mmol/L Potassium 4.7 (3.5-5.1) mmol/L Chloride 104 (98-107) mmol/L Carbon Dioxide 22 (21-32) mmol/L Anion Gap 7.0 (3-11) BUN 23 H (7-18) mg/dl Creatinine 2.27 H (0.6-1.4) mg/dl Est Cr Clr Drug Dosing 23.8 ml/min Est GFR ( Amer) 31.5 Est GFR (Non-Af Amer) 27.2 BUN/Creatinine Ratio 10.1 (10-20) Glucose 91 (70-99) mg/dl Calcium 8.6 (8.5-10.1) mg/dl Troponin I < 0.015 (0-0.045) ng/ml Lipase 59 L (73-393) U/L Diagnostic Findings Chest x-ray image personally reviewed by me and agree with the following report: XR chest 1V portable CLINICAL HISTORY: Chest Pain COMPARISON STUDY: 07/12/2019 FINDINGS: Prior median sternotomy. Lungs are clear. The diaphragms are smooth. IMPRESSION: No acute process. ECG Additional Comments: ECG #1 from 09/06/2019 at 0 849 with normal sinus rhythm, LBBB, slight ST depression in inferior leads unchanged from previous ECG #2 from 09/06/2019 at 0 932 with normal sinus rhythm, LBBB, again with similar slight ST depression downsloping in inferior leads Code Status & VTE Plan Code Status Full code as per discussion with patient VTE Prophylaxis Plan VTE Prophylaxis will be ordered: Yes PG Care Time/CCT Total # of Minutes Spent Total Time Spent with Patient: Total time spent is greater than 50% in coordination of care (as documented) at patient's floor/unit and/or counseling patient: Coding Level of Care Code 41548 OBS Care - Level 3 Diagnoses Unstable angina I20.0 Hypertension I10 CAD (coronary artery disease), [place] coronary artery I25.10 CKD (chronic kidney disease) stage 4, GFR 15-29 ml/min N18.4 COPD (chronic obstructive pulmonary disease) with emphysema J43.9 Hyperlipidemia E78.5 BPH (benign prostatic hyperplasia) N40.0 Cancer of right lung parenchyma C34.91 Dysphagia R13.10 Anemia D64.9 H/O liver transplant Z94.4 Current smoker F17.200 DVT prophylaxis Z29.9
[2019-09-06] MEDS ORDERED: NITROGLYCERIN SL 0.4 MG/TAB TAB SL PRN (11:38)
[2019-09-06] MEDS ORDERED: ISOSORBIDE MONO EXTENDED REL 60 MG TABCR PO SCH (11:45)
--- NOTE | 2019-09-06 13:06 | XCELERA ---
[id number]
[2019-09-06] MEDS: TACROLIMUS 1 MG CAP PO SCH ×2 (13:32→23:51)
[2019-09-06] MEDS: METOPROLOL TARTRATE 25 MG TAB PO SCH ×2 (13:32→22:19)
[2019-09-06] MEDS: lisinopriL 10 MG TAB PO SCH (13:33)
[2019-09-06] MEDS: SODIUM BICARBONATE 650 MG TAB PO SCH ×2 (13:33→20:43)
--- NOTE | 2019-09-06 13:34 | Cardiology Consultation ---
Date of Consultation September 06, 2019 Assessment & Plan (1) CAD (coronary artery disease), [place] coronary artery: -Reported two-vessel CABG 2013 (question MARC to LAD and RCA) 2. Stage IV chronic kidney disease 3. Hypertension 4. COPD 5. Prior liver transplant 6. Anemia 7. Ongoing tobacco use Patient here with several episodes of chest pressure occurring at rest. Suspicion for ACS is elevated but at present no evidence of active myocardial ischemia by enzymes, echocardiogram. He is chest pain-free and hemodynamically and electrically stable. Likelihood of patient having CAD that could be intervened upon and that would change long-term prognosis is low. Risk of invasive cardiac testing elevated. Recommend medical management unless refractory chest pain or becomes unstable with evidence of cardiac ischemia. Episodes occurred today in the setting of hypertension while off home antihypertensives. Recommend resuming home meds and further titration of antianginal therapy. Agree with observation overnight and trending troponins Restart home metoprolol, lisinopril Increase Imdur to 120 mg daily Continue aspirin, statin If recurrent pain overnight would start heparin infusion and add topical or IV nitrates. If stable overnight no need for additional cardiac testing and can be discharged with outpatient cardiac follow-up. Thank you for allowing us to participate in the care of this patient. Please contact with any questions. History of Present Illness Reason for Consultation: chest pain Requesting Physician: Massiel History of Present Illness Mr. Khan is a very pleasant 74-year-old man with a complex past medical history including coronary artery disease post CABG in 2013, ischemic cardiomyopathy EF 40 to 45%, moderate MR who was seen in the emergency department for recurrent resting chest pain. Additional medical history remarkable for liver transplant for cirrhosis in 1992, stage IV CKD with baseline creatinine around 2.2, COPD, lung cancer post radiation therapy, anemia, dyslipidemia, and ongoing tobacco abuse. Patient followed by [facility] for his cardiac care. Last seen more than 1 year ago. Last cardiac catheterization in November 2013. Per patient cath done in the setting of abnormal EKG, preoperative evaluation. At that time had a known proximal RCA 100% chronic total occlusion and was found to have 99% proximal LAD in-stent restenosis which was unsuccessfully treated with balloon angioplasty prompting CABG. Per patient underwent two-vessel CABG using just his internal mammary arteries. Since that time has had minimal recurrent angina. Was having some symptoms in approximately 2015 which were improved with doubling of his home Imdur. Since that time has rarely had to take a subsequent under glycerin. More recently patient has been dealing with dysphasia with some of his pills. Was scheduled to undergo an EGD, colonoscopy today. Yesterday evening while at rest had an episode of chest pain relieved with nitroglycerin. Then again today while awaiting his procedure developed chest tightness, relieved with 2 sublingual nitroglycerin. In ED hypertensive to the 190s and had 2 additional episodes of chest pain again relieved with nitro and morphine 2 mg. Patient had not taken home BP meds preparation for procedure. EKG showed chronic left bundle branch block without new ST changes. Initial troponin negative. Repeat echocardiogram showed preserved LV function with abnormal septal motion consistent with left bundle but no other wall motion abnormalities. Currently patient chest pain-free with blood pressures in the 160s. Allergies Allergy/AdvReac Type Severity Reaction Status Date / Time bee venom protein (honey bee) Allergy Mild swelling Verified 09/06/19 10:48 aspirin AdvReac Intermediate INTERNAL Verified 09/06/19 10:48 BLEEDING, TOLD NOT TO TAKE LG DOSE peas AdvReac nausea and Verified 09/06/19 10:48 vomiting Home Medications Home Medications Medication Instructions Recorded Confirmed Type docusate sodium 100 mg PO BID PRN #0 06/16/13 09/06/19 History hydrocodone-acetaminophen 1 tab PO QID PRN #0 tab 06/16/13 09/06/19 History tamsulosin [Flomax] 0.8 mg PO HS #0 cap 05/04/15 09/06/19 History atorvastatin [Lipitor] 10 mg PO DAILY #0 tab 11/16/16 09/06/19 History cyanocobalamin (vitamin B-12) 500 mcg PO DAILY #0 tab 11/16/16 09/06/19 History ipratropium bromide 2 spray INTRANASAL TID #0 11/16/16 09/06/19 History metoprolol tartrate 25 mg PO BID #0 11/16/16 09/06/19 History nitroglycerin 0.4 mg SUBLINGUAL TID PRN #0 11/16/16 09/06/19 History albuterol sulfate 2 puff INHALATION Q6H PRN #0 10/19/17 09/06/19 History cetirizine [Zyrtec] 10 mg PO DAILY #0 10/19/17 09/06/19 History lisinopril 10 mg PO QAM 09/07/18 09/06/19 History tacrolimus 1 mg PO Q12H 09/07/18 09/06/19 History aspirin 81 mg PO QAM 10/23/18 09/06/19 History fluticasone propionate 1 spray INTRANASAL DAILY 10/23/18 09/06/19 History gabapentin 100 mg PO HS 10/23/18 09/06/19 History ipratropium-albuterol 3 ml INHALATION QID PRN 10/23/18 09/06/19 History isosorbide mononitrate 60 mg PO QAM 10/23/18 09/06/19 History sodium bicarbonate 1,300 mg PO BID 10/23/18 09/06/19 History tiotropium 2.5 mcg-olodaterol 2.5 2 puffs INH DAILY 03/20/19 09/06/19 History mcg/actuation mist for inhalation peg 3350-electrolytes 236 240 ml PO .COMPLEX #4000 ml 09/03/19 09/06/19 Rx gram-22.74 gram-6.74 gram-5.86 gram solution amlodipine 5 mg PO DAILY 09/06/19 09/06/19 History Patient History Medical History Anemia CAD (coronary artery disease), [place] coronary artery CKD (chronic kidney disease) stage 4, GFR 15-29 ml/min Colon cancer radiation - a few months ago follows with cancer center COPD exacerbation (Inactive) Degenerative disc disease Dysphagia Hiatal hernia (Chronic) History of cirrhosis of liver Kidney failure no dialysis Lung nodule just watching Myocardial Infarction 2011 (FOUND ON EKG/PT DID NOT KNOW) Poor historian Swelling of right hand (Resolved) Surgical History H/O liver transplant (Resolved) 1992 History of anesthesia reaction URINARY RETENTION History of bronchoscopy History of cataract surgery RT/LEFT History of cholecystectomy History of colonoscopy History of coronary artery bypass graft 2013 cabg x 2 [facility] History of esophagogastroduodenoscopy (EGD) History of heart artery stent X 2 2012 History of liver biopsy History of open reduction and internal fixation (ORIF) procedure LEFT HIP History of tonsillectomy History of tooth extraction Patella fracture REPAIRED Family History Mother , age 92 old age Family history of diabetes mellitus Brother , diabetes does not remember age Family history of diabetes mellitus Cancer Father , CVA does not remember age No problems noted. Brother , age early 40s lymph nodes No problems noted. Sister , unknown No problems noted. Sister , COPD No problems noted. Sister No problems noted. Son No problems noted. Son No problems noted. Daughter No problems noted. Daughter No problems noted. 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 [employer] Feels Safe at Home: Yes Smoking Status: Current every day smoker Tobacco Type: cigarettes ; Age Started Using Tobacco: 13 ; Cigarettes Per Day: 1 1/2 pp a week ; Second Hand Exposure: No ; Hx Alcohol Use: Yes Alcohol type: beer Alcohol Intake Frequency Comment: 1-2 beers per week Hx Substance Use: No Childhood Exposure to Second-Hand Smoke: Yes caffeine: Yes (coffee twice a week ) during the past year weight has: decreased > 10 lbs Dental Care, Regularly: No Seatbelt Use: always Sunscreen Use: No Review of Systems Review of Systems: All systems reviewed & are unremarkable except as noted in HPI & below Physical Exam Physical Exam: General: Comfortable, no acute distress Eyes: Sclerae anicteric, extraocular movements intact HENT: Oropharynx clear mucous membranes moist Neck: No JVD. Lungs: Clear to auscultation bilaterally, rare scattered wheezes Cardiac: Regular rate and rhythm, 2 out of 6 holosystolic murmur heard best at the apex Vascular: 2+ radial bilaterally. 2+ DP/PT pulses on left, 2+ PT on right, 1+ DP Abdomen: Soft, nontender Extremities: Well perfused, no peripheral edema Skin: No rashes or lesions. Neuro: Nonfocal Psych: Alert orient x3, normal affect and mood Results & Data ([facility]) Vital Signs (Past 12 Hours) Vital Signs Temp Pulse Pulse Resp BP BP Pulse Ox 09/06/19 12:38 78 22 190/71 H 100 09/06/19 10:20 73 22 194/69 H 100 09/06/19 10:14 98 H 98 H 18 153/53 H 96 09/06/19 09:10 98.6 F 69 16 176/75 H 100 PG Care Time/CCT Total # of Minutes Spent Total Time Spent with Patient: Total time spent is greater than 50% in coordination of care (as documented) at patient's floor/unit and/or counseling patient: Coding Level of Care Code 44330 Inpt Consult Level 4 Diagnoses CAD (coronary artery disease), [place] coronary artery I25.10
[2019-09-06] MEDS ORDERED: ISOSORBIDE MONO EXTENDED REL 30 MG TABCR PO ONE (14:11)
[2019-09-06] MEDS ORDERED: NITROGLYCERIN 2% OINTMENT 30GM TUBE EXT PRN (16:05)
[2019-09-06] MEDS ORDERED: ACETAMINOPHEN 325 MG TAB PO PRN (16:05)
[2019-09-06] MEDS ORDERED: ALBUT/IPRATROP 3MG/0.5MG NEB 3 ML VIAL INH PRN (16:05)
[2019-09-06] MEDS ORDERED: DOCUSATE SODIUM 100 MG CAP PO PRN (16:05)
[2019-09-06] MEDS ORDERED: ONDANSETRON INJ 2 MG/ML 2 ML VIAL IV PRN (16:05)
[2019-09-06] MEDS ORDERED: MoRPHine SULFATE 2 MG/ML CARP IV PRN (16:05)
[2019-09-06] MEDS: HYDROCODONE/ACETAMINOPHEN 7.5/325MG TAB PO PRN ×2 (16:58→23:50)
[2019-09-06] MEDS: IPRATROPIUM BROMIDE NASAL SPRAY 0.06% 15ML NAE SCH (20:41)
[2019-09-06] MEDS: HEPARIN SOD 5,000 UNIT/0.5 ML VIAL SQ SCH (20:45)
[2019-09-06] MEDS ORDERED: TAMSULOSIN HCL 0.4 MG CAP PO SCH (21:00)
[2019-09-06] MEDS ORDERED: GABAPENTIN 100 MG CAP PO SCH (21:00)
[2019-09-07 06:13] LABS: Basophils # (auto) 0.01 K/uL (0-0.2); Basophils % (auto) 0.3 %; Eosinophils # (auto) 0.06 K/uL (0-0.5); Eosinophils % (auto) 1.7 %; Hemoglobin 9.1 g/dL (14.0-18.0); Lymphocytes # (auto) 0.87 K/uL (1.2-3.4); Lymphocytes % (auto) 25.1 %; Mean Corpuscular Hemoglobin 29.4 pg (25-34); Mean Corpuscular Hgb Conc 33.7 g/dL (32-36); Mean Corpuscular Volume 87.1 fL (80-100); Mean Platelet Volume 8.4 fL (7.4-10.4); Monocytes # (auto) 0.41 K/uL (0.11-0.59); Monocytes % (auto) 11.8 %; Neutrophils # (auto) 2.11 K/uL (1.4-6.5); Neutrophils % (auto) 61.1 %; Platelet Count 160 K/uL (130-400); RDW Coefficient of Variation 14.5 % (11.5-14.5); RDW Standard Deviation 46.3 fL (36.4-46.3); White Blood Count 3.46 K/uL (4.8-10.8)
[2019-09-07 06:47] LABS: Albumin Level 2.9 gm/dl (3.4-5.0); BUN Creatinine Ratio 10.2 (10-20); Bilirubin Direct 0.2 mg/dl (0-0.2); Calcium 8.1 mg/dl (8.5-10.1); Creatinine Clr Calc Pharmacy 21.1 ml/min; Est GFR (African American) 31.9; Est GFR (Non-African American) 27.5; Potassium 5.2 mmol/L (3.5-5.1)
[2019-09-07 06:49] LABS: Albumin Globulin Ratio 0.9 (0.9-2); Bilirubin,Total 0.7 mg/dl (0.2-1); Globulin 3.3 gm/dl (2.5-4.0); Total Protein 6.2 gm/dl (6.4-8.2)
--- NOTE | 2019-09-07 07:01 | Electrocardiogram Report ---
Test Reason : Blood Pressure : / mmHG Vent. Rate : 071 BPM Atrial Rate : 071 BPM P-R Int : 134 ms QRS Dur : 152 ms QT Int : 472 ms P-R-T Axes : 046 072 -18 degrees QTc Int : 512 ms Poor data quality, interpretation may be adversely affected Normal sinus rhythm Left bundle branch block Abnormal ECG When compared with ECG of 06-SEP-2019 08:49, (unconfirmed) No significant change was found Confirmed by William Ricks ([id number]) on 09/07/2019 7:00:51 AM Referred By: Confirmed By:William Ricks
--- NOTE | 2019-09-07 08:25 | Hospitalist Progress Note ---
Date of Service September 07, 2019 Assessment & Plan (1) Unstable angina: This patient is a 74-year-old male with a history of CAD status post CABG and angioplasty, chronic LBBB, mild LV dysfunction with EF 40-45%, moderate MR, CKD stage IV, COPD, current smoker, lung cancer status post radiation therapy, anemia, liver transplant for cirrhosis in 1992, hyperlipidemia, and BPH, who presents to the ER with substernal severe chest pressure. His chest pain started when he was in the endoscopy suite this morning preparing to have an EGD for recent symptoms of dysphagia and anemia. He reports the pain is been an 8 out of 10 in severity, across his whole chest, felt like a pressure, and was ass ociated with increased shortness of breath. He had no diaphoresis or nausea. It did not radiate to the jaw or the upper extremities. It was relieved within 2 minutes with a sublingual nitroglycerin given by anesthesia. He was then transported to the ER. He again had a recurrence of similar chest pressure in the ER which was again relieved with 2 sublingual nitroglycerin tablets and 2 mg of IV morphine. His blood pressure was quite elevated at 194/69 in the ER. He reports he did not take any of his morning medications due to the upcoming endoscopies. A chest x-ray was negative for acute disease. Troponin was negative. ECG showed chronic LBBB with negative S[place] criteria. His creatinine is elevated but is at his baseline of 2.27. Review of echocardiogram from 05/30/2018 shows LVEF 40-45% with mild LV dilation, dilated aortic root 3.6 cm, mild to moderate AI, moderate MR, mild to moderate Pulm HTN Review of outside cardiac catheterization from 11/07/2013 which was just prior to his CABG showed: 99% in-stent restenosis of proximal LAD s/p balloon angioplasty to lesion with residual 70% stenosis remaining, calcified lesion not amenable to PCI; known 100% occlusion of proximal RCA -Serial troponin negative x 3 - transthoracic echocardiogram without significant changes, increase in EF from previous(now 50-55%) -Consult cardiology recommends medical management, increased isosorbide to 120 -Continue home aspirin, atorvastatin-should be on a higher intensity dose of atorvastatin if can tolerate -Encouraged smoking cessation -Of note, he had been on amlodipine previously a couple of months ago but it was discontinued for persistent lightheadedness (2) Hypertension: Blood pressures significantly elevated on arrival as above -Did not take home medications this morning -Restart home metoprolol 25 mg p.o. twice daily, lisinopril 10 mg p.o. daily, and isosorbide 60 mg once daily now -Follow and will likely titrate up on antianginal medications -As above, did not tolerate amlodipine in the past due to persistent lightheadedness (3) CAD (coronary artery disease), [place] coronary artery: Status post stent to the proximal LAD prior to 2013, with in-stent restenosis, known 100% RCA occlusion, subsequent two-vessel CABG in 2013 at the [facility] in [place] -Has not followed with mortgage originator in [place] in several years -Aspirin, statin, beta-eder, lisinopril as above -Consult cardiology (4) CKD (chronic kidney disease) stage 4, GFR 15-29 ml/min: Creatinine seems at baseline here today at 2.2 -Continue sodium bicarbonate Continue lisinopril -Avoid nephrotoxins -renally dose meds when appropriate -follow BMP (5) COPD (chronic obstructive pulmonary disease) with emphysema: Stable, mild wheezing on examination, not on oxygen at home but was placed on oxygen here for angina -Wean off oxygen as tolerated -Continue PRN duo nebs -Continue home tiotropium/olodaterol 2 puffs once daily (6) Hyperlipidemia: Continue statin consider increasing high intensity given severe CAD (7) BPH (benign prostatic hyperplasia): Stable -Continue home tamsulosin -Follow for signs of urinary retention (8) Cancer of right lung parenchyma: With right upper lobe squamous cell carcinoma now status post stereotactic radiation therapy with resolution -Discharge from radiation oncology Follow-up as an outpatient with pulmonology -Encourage smoking cessation (9) Dysphagia: With pills only Was to have a EGD on the day of admission -Follow-up as an outpatient with GI Does fine with liquids and solids (10) Anemia: Hemoglobin stable from previous at 9.2, normocytic No GI bleeding as per patient and recent GI notes Was to have EGD/colonoscopy today which was canceled due to chest pain Likely secondary to chronic kidney disease Follow-up as an outpatient -Monitor CBC while here (11) H/O liver transplant: In 1992, performed for cirrhosis Stable on this -Continue home tacrolimus (12) Current smoker: Encourage cessation, he has been cutting back -Can have nicotine patch if desires (13) DVT prophylaxis: Heparin SQ, SCDs Disposition-admit to PCU for observation Admission and Anticipated Discharge Date Admission Date: September 06, 2019 Results & Data Results & Data ([facility]) Vital Signs (Past 12 Hours) Vital Signs Temp Pulse Pulse Resp BP Pulse Ox 09/07/19 07:49 97.9 F 67 16 161/61 H 94 09/07/19 03:51 97.9 F 63 18 134/59 L 96 09/07/19 00:10 70 09/06/19 23:41 99.0 F 74 18 153/56 H 96 PG Care Time/CCT Total # of Minutes Spent Total Time Spent with Patient: Total time spent is greater than 50% in coordination of care (as documented) at patient's floor/unit and/or counseling patient: Coding Diagnoses Unstable angina I20.0 Hypertension I10 CAD (coronary artery disease), [place] coronary artery I25.10 CKD (chronic kidney disease) stage 4, GFR 15-29 ml/min N18.4 COPD (chronic obstructive pulmonary disease) with emphysema J43.9 Hyperlipidemia E78.5 BPH (benign prostatic hyperplasia) N40.0 Cancer of right lung parenchyma C34.91 Dysphagia R13.10 Anemia D64.9 H/O liver transplant Z94.4 Current smoker F17.200 DVT prophylaxis Z29.9
[2019-09-07] MEDS ORDERED: ATORVASTATIN 10 MG TAB PO SCH (09:00)
[2019-09-07] MEDS ORDERED: CYANOCOBALAMIN 500 MCG TABLET (VITAMIN B-12) PO SCH (09:00)
[2019-09-07] MEDS ORDERED: FLUTICASONE PROPIONATE NA SPR 16 GM BTL NAE SCH (09:00)
[2019-09-07] MEDS ORDERED: ISOSORBIDE MONO EXTENDED REL 60 MG TABCR PO SCH (09:00)
[2019-09-07] MEDS ORDERED: UMECLIDINIUM/VILANTEROL 62.5/25MCG 7 PUFFS/INHALER INH SCH (09:00)
[2019-09-07] MEDS ORDERED: CETIRIZINE HCL 10 MG TABLET PO SCH (09:00)
[2019-09-07] MEDS ORDERED: ASPIRIN 81 MG ECTAB PO SCH (09:00)
[2019-09-07] MEDS: METOPROLOL TARTRATE 25 MG TAB PO SCH (09:03)
[2019-09-07] MEDS: lisinopriL 10 MG TAB PO SCH (09:04)
[2019-09-07] MEDS: IPRATROPIUM BROMIDE NASAL SPRAY 0.06% 15ML NAE SCH ×2 (09:05→13:45)
[2019-09-07] MEDS: SODIUM BICARBONATE 650 MG TAB PO SCH (09:06)
[2019-09-07] MEDS: HEPARIN SOD 5,000 UNIT/0.5 ML VIAL SQ SCH (09:10)
[2019-09-07] MEDS: HYDROCODONE/ACETAMINOPHEN 7.5/325MG TAB PO PRN (09:13)
[2019-09-07] MEDS: TACROLIMUS 1 MG CAP PO SCH (12:00)
[2019-09-07 12:41] VITALS: BP 135/61; PULSE 66; TEMP 98.6; O2SAT 96
--- NOTE | 2019-09-07 14:32 | Discharge Summary ---
Date of Service September 07, 2019 Admission HPI Per Admitting Provider This patient is a 74-year-old male with a history of CAD status post CABG and angioplasty, chronic LBBB, mild LV dysfunction with EF 40-45%, moderate MR, CKD stage IV, COPD, current smoker, lung cancer status post radiation therapy, anemia, liver transplant for cirrhosis in 1992, hyperlipidemia, and BPH, who presents to the ER with substernal severe chest pressure. His chest pain started when he was in the endoscopy suite this morning preparing to have an EGD for recent symptoms of dysphagia and anemia. He reports the pain is been an 8 out of 10 in severity, across his whole chest, felt like a pressure, and was associated with increased shortness of breath. He had no diaphoresis or nausea. It did not radiate to the jaw or the upper extremities. It was relieved within 2 minutes with a sublingual nitroglycerin given by anesthesia. He was then transported to the ER. He again had a recurrence of similar chest pressure in the ER which was again relieved with 2 sublingual nitroglycerin tablets and 2 mg of IV morphine. His blood pressure was quite elevated at 194/69 in the ER. He reports he did not take any of his morning medications due to the upcoming endoscopies. A chest x-ray was negative for acute disease. Troponin was negative. ECG showed chronic LBBB with negative Sgarbossa criteria. His creatinine is elevated but is at his baseline of 2.27. He will be admitted on observation for unstable angina for further evaluation and treatment. Principal Diagnosis chest pain- stable angina Discharge Exam The patient appeared well Vital signs as documented. Lungs are clear to auscultation and appear unlabored Cardiac exam, Rhythm is regular.. No murmurs, rubs or gallops. Abdominal exam reveals normal bowel sounds, soft non tender, no masses Extremities are nonedematous and both pedal pulses are normal. Neurologic exam is alert and oriented, no focal loss of strength or sensation Skin is without bruises or rashes Psychologically is without concerns for anxiety or depression Discharge Data Allergies Allergy/AdvReac Type Severity Reaction Status Date / Time bee venom protein (honey bee) Allergy Mild swelling Verified 09/06/19 10:48 aspirin AdvReac Intermediate INTERNAL Verified 09/06/19 10:48 BLEEDING, TOLD NOT TO TAKE LG DOSE peas AdvReac nausea and Verified 09/06/19 10:48 vomiting Consultations 09/06/19 10:47 ED Decision to Admit Stat 09/06/19 16:05 Consult Cardiology Routine Consult Case Management - Discharge Planning Routine Hospital Course (1) Unstable angina: This patient is a 74-year-old male with a history of CAD status post CABG and angioplasty, chronic LBBB, mild LV dysfunction with EF 40-45%, moderate MR, CKD stage IV, COPD, current smoker, lung cancer status post radiation therapy, anemia, liver transplant for cirrhosis in 1992, hyperlipidemia, and BPH, who presents to the ER with substernal severe chest pressure. His chest pain started when he was in the endoscopy suite this morning preparing to have an EGD for recent symptoms of dysphagia and anemia. He reports the pain is been an 8 out of 10 in severity, across his whole chest, felt like a pressure, and was associated with increased shortness of breath. He had no diaphoresis or nausea. It did not radiate to the jaw or the upper extremities. It was relieved within 2 minutes with a sublingual nitroglycerin given by anesthesia. He was then transported to the ER. He again had a recurrence of similar chest pressure in the ER which was again relieved with 2 sublingual nitroglycerin tablets and 2 mg of IV morphine. His blood pressure was quite elevated at 194/69 in the ER. He reports he did not take any of his morning medications due to the upcoming endoscopies. A chest x-ray was negative for acute disease. Troponin was negative. ECG showed chronic LBBB with negative Sgarbossa criteria. His creatinine is elevated but is at his baseline of 2.27. Review of echocardiogram from 05/30/2018 shows LVEF 40-45% with mild LV dilation, dilated aortic root 3.6 cm, mild to moderate AI, moderate MR, mild to moderate Pulm HTN Review of outside cardiac catheterization from 11/07/2013 which was just prior to his CABG showed: 99% in-stent restenosis of proximal LAD s/p balloon angioplasty to lesion with residual 70% stenosis remaining, calcified lesion not amenable to PCI; known 100% occlusion of proximal RCA -Serial troponin negative x 3 - transthoracic echocardiogram without significant changes, increase in EF from previous(now 50-55%) -Consult cardiology recommends medical management, increased isosorbide to 120, patient was able to ambulate in the unit without any recurrence of chest pain -Continue home aspirin, atorvastatin-should be on a higher intensity dose of atorvastatin if can tolerate -Encouraged smoking cessation -Of note, he had been on amlodipine previously a couple of months ago but it was discontinued for persistent lightheadedness (2) Hypertension: Blood pressures significantly elevated on arrival as above -Did not take home medications this morning -Restart home metoprolol 25 mg p.o. twice daily, lisinopril 10 mg p.o. daily, and isosorbide 60 mg once daily now -Follow and will likely titrate up on antianginal medications -As above, did not tolerate amlodipine in the past due to persistent lightheadedness (3) CAD (coronary artery disease), [place] coronary artery: Status post stent to the proximal LAD prior to 2013, with in-stent restenosis, known 100% RCA occlusion, subsequent two-vessel CABG in 2013 at the [facility] [place] -Has not followed with [facility] in [place] in several years -Aspirin, statin, beta-eder, lisinopril as above -Consult cardiology recommended medical management. Patient was able ambulate on higher doses of isosorbide without recurrence of his chest pain (4) CKD (chronic kidney disease) stage 4, GFR 15-29 ml/min: Creatinine seems at baseline here today at 2.2 -Continue sodium bicarbonate Continue lisinopril (5) COPD (chronic obstructive pulmonary disease) with emphysema: Stable, mild wheezing on examination, not on oxygen at home but was placed on oxygen here for angina -Wean off oxygen as tolerated -Continue PRN duo nebs -Continue home tiotropium/olodaterol 2 puffs once daily (6) Hyperlipidemia: Continue statin consider increasing high intensity given severe CAD (7) BPH (benign prostatic hyperplasia): Stable -Continue home tamsulosin He has had no signs of urinary retention (8) Cancer of right lung parenchyma: With right upper lobe squamous cell carcinoma now status post stereotactic radiation therapy with resolution -Discharge from radiation oncology Follow-up as an outpatient with pulmonology -Encourage smoking cessation patient was counseled prior to discharge (9) Dysphagia: With pills only Was to have a EGD on the day of admission -Follow-up as an outpatient with GI Does fine with liquids and solids encouraged to follow-up with his primary care physician about rescheduling testing or perhaps doing a barium swallow or video esophoGraham (10) Anemia: Hemoglobin stable from previous at 9.2, normocytic No GI bleeding as per patient and recent GI notes (11) H/O liver transplant: In 1992, performed for cirrhosis Stable on this -Continue home tacrolimus (12) Current smoker: Encourage cessation, he has been cutting back Total Time Total Time Spent Total Time Spent (In Minutes): It required greater than 30 minutes to prepare this patient for discharge Discharge Plan Discharge Items Patient Disposition: Home - Self-Care Reason For Visit: UNSTABLE ANGINA Discharge Diagnosis: chest pain Activity: Resume your previous activity Non-emergency contact: Primary Care Provider and Cms Expert Call non-emergency contact if: you have any medication questions Follow-up/Referrals: Imelda Lama PA-C [Primary Care Provider] - Diet: Regular Addtl Attending Provider Instructions: please take the increased dose of isosorbide, please follow up with your primary care doctor next week Pending Studies at Discharge: No Stand-Alone Forms: [employer], Smoking Cessation Medications and DC Order Prescriptions: New isosorbide mononitrate 60 mg Tablet Extended Release 24 Hr 120 mg PO QAM Qty: 60 RF: 5 Continued tiotropium-olodaterol 2.5-2.5 mcg/actuation mist 2 puffs INH DAILY RF: 0 hydrocodone-acetaminophen 7.5-325 mg Tablet 1 tab PO QID PRN (Reason: Allergy Symptoms) Qty: 0 RF: 0 docusate sodium 100 mg Tablet 100 mg PO BID PRN (Reason: Constipation) Qty: 0 RF: 0 tamsulosin [Flomax] 0.4 mg Capsule 0.8 mg PO HS Qty: 0 RF: 0 ipratropium bromide 0.03 % [place],Non-Aerosol 2 spray INTRANASAL TID Qty: 0 RF: 0 atorvastatin [Lipitor] 10 mg Tablet 10 mg PO DAILY Qty: 0 RF: 0 cyanocobalamin (vitamin B-12) 500 mcg Tablet 500 mcg PO DAILY Qty: 0 RF: 0 nitroglycerin 0.4 mg Tablet, Sublingual 0.4 mg sublingual TID PRN (Reason: Chest Pain) Qty: 0 RF: 0 metoprolol tartrate 25 mg Tablet 25 mg PO BID Qty: 0 RF: 0 cetirizine [Zyrtec] 10 mg Tablet 10 mg PO DAILY Qty: 0 RF: 0 albuterol sulfate 90 mcg/actuation Hfa Aerosol Inhaler 2 puff INHALATION Q6H PRN (Reason: copd) Qty: 0 RF: 0 peg 3350-electrolytes [Golytely] 236-22.74-6.74 -5.86 gram recon soln 240 ml PO .COMPLEX Qty: 4000 RF: 0 lisinopril 10 mg Tablet 10 mg PO QAM RF: 0 tacrolimus 1 mg Capsule 1 mg PO Q12H RF: 0 ipratropium-albuterol 0.5 mg-3 mg(2.5 mg base)/3 mL Solution For Nebulization 3 ml INHALATION QID PRN (Reason: Shortness Of Breath) RF: 0 aspirin 81 mg Tablet,Delayed Release (Dr/Ec) 81 mg PO QAM RF: 0 sodium bicarbonate 650 mg Tablet 1,300 mg PO BID RF: 0 gabapentin 100 mg Capsule 100 mg PO HS RF: 0 fluticasone propionate 50 mcg/actuation [place],Suspension 1 spray INTRANASAL DAILY RF: 0 Discharge Orders: Discharge Order (Routine); Ordered 09/07/19 Ordered By: John Wellington/Other Patient Handouts: Heart Disease Risk, Heart Disease Risk Factors, Heart Risk Plan Admission Data Admit Date/Time: 09/06/19 11:38 Attending Provider: John Patino Admit Provider: Kitty Rankin Primary Care Provider: Imelda Lama Other Providers: Kitty Rankin ; William Ricks Other Interventions: Discharge Summary Assessment (RN) Last Done: 09/07/19 12:41 DC Date/Time DO NOT enter until pt leaves facility: 09/07/19 14:26 Coding Level of Care Code D/C Day Management >30 mins Diagnoses Unstable angina I20.0 Hypertension I10 CAD (coronary artery disease), [place] coronary artery I25.10 CKD (chronic kidney disease) stage 4, GFR 15-29 ml/min N18.4 COPD (chronic obstructive pulmonary disease) with emphysema J43.9 Hyperlipidemia E78.5 BPH (benign prostatic hyperplasia) N40.0 Cancer of right lung parenchyma C34.91 Dysphagia R13.10 Anemia D64.9 H/O liver transplant Z94.4 Current smoker F17.200
--- NOTE | 2019-09-07 22:54 | Electrocardiogram Report ---
Test Reason : Blood Pressure : / mmHG Vent. Rate : 064 BPM Atrial Rate : 064 BPM P-R Int : 190 ms QRS Dur : 142 ms QT Int : 488 ms P-R-T Axes : 075 082 -76 degrees QTc Int : 503 ms Normal sinus rhythm Left bundle branch block Abnormal ECG When compared with ECG of 06-SEP-2019 09:32, No significant change Confirmed by Dg Arriaga ([id number]) on 09/07/2019 10:53:52 PM Referred By: REFERRED SELF Confirmed By:Dg Arriaga
== END 2019-09-07 14:26 | disposition home or self-care (01) ==
LOC: ED 09:14 → 2S 09:14 → SUATTDRO 11:38 → 2S 15:02

== ENCOUNTER 2019-11-23 14:48 | Inpatient (IN) ==
[2019-11-23] MEDS ORDERED: SODIUM CHLORIDE 0.9% 1000ML 1,000 ML IV STA (14:56)
[2019-11-23 15:41] LABS: Basophils # (auto) 0.01 K/uL (0-0.2); Basophils % (auto) 0.1 %; Eosinophils # (auto) 0.02 K/uL (0-0.5); Eosinophils % (auto) 0.3 %; Hematocrit (blood only) 25.3 % (42-52); Hemoglobin 8.7 g/dL (14.0-18.0); Immature Granulocytes # (auto) 0.02 K/uL (0.00-0.02); Immature Granulocytes % (auto) 0.3 %; Lymphocytes # (auto) 0.31 K/uL (1.2-3.4); Lymphocytes % (auto) 4.2 %; Mean Corpuscular Hemoglobin 30.3 pg (25-34); Mean Corpuscular Hgb Conc 34.4 g/dL (32-36); Mean Corpuscular Volume 88.2 fL (80-100); Mean Platelet Volume 8.8 fL (7.4-10.4); Monocytes # (auto) 0.78 K/uL (0.11-0.59); Monocytes % (auto) 10.6 %; Neutrophils # (auto) 6.21 K/uL (1.4-6.5); Neutrophils % (auto) 84.5 %; Platelet Count 167 K/uL (130-400); RDW Coefficient of Variation 14.5 % (11.5-14.5); RDW Standard Deviation 47.4 fL (36.4-46.3); Red Blood Count 2.87 M/uL (4.7-6.1); White Blood Count 7.35 K/uL (4.8-10.8)
[2019-11-23 15:57] LABS: Albumin Level 2.6 gm/dl (3.4-5.0); BUN Creatinine Ratio 11.6 (10-20); Calcium 7.9 mg/dl (8.5-10.1); Creatinine Clr Calc Pharmacy 26.9 ml/min; Est GFR (African American) 38.4; Est GFR (Non-African American) 33.1; Magnesium 1.6 mg/dl (1.8-2.4); Potassium 4.3 mmol/L (3.5-5.1)
[2019-11-23 16:08] LABS: Albumin Globulin Ratio 0.7 (0.9-2); Bilirubin,Total 0.6 mg/dl (0.2-1); Globulin 3.5 gm/dl (2.5-4.0); Thyroid Stimulating Hormone 0.509 uIu/ml (0.300-4.500); Total Protein 6.1 gm/dl (6.4-8.2)
[2019-11-23] MEDS ORDERED: dilTIAZem HCl 5 MG/ML 5 ML VIAL IV STA (16:25)
--- NOTE | 2019-11-23 17:03 | XRay Report ---
XR chest 1V portable HISTORY: Atypical chest pain COMPARISON: Chest 11/20/2019. FINDINGS: No pneumothorax. No pleural effusions. The lungs are hyperexpanded with apical predominant emphysematous changes. The right lung is clear. Increased markings within the left lung base which co uld be due to vascular crowding from the emphysema or a developing pneumonia. The heart is normal in size. There are poststernotomy changes. No evidence for pulmonary edema. IMPRESSION: Increased markings within the left lung base which could be due to vascular crowding from the emphyse ma or a developing pneumonia. ACT 112: Negative or not required by law. Electronically signed by: Scott Mosley M.D. 11/23/2019 5:01 PM
[2019-11-23] MEDS ORDERED: MoRPHine SULFATE 2 MG/ML CARP IV STA (17:04)
[2019-11-23] MEDS ORDERED: NITROGLYCERIN 2% OINTMENT 30GM TUBE EXT STA ×2 (17:04→17:05)
[2019-11-23 17:53] LABS: Reticulocyte % 0.6 % (0.5-2.0); Reticulocytes # 0.02 10^6/uL (0.02-0.10)
[2019-11-23 17:56] LABS: INR 1.1 (0.9-1.1); Partial Thromboplastin Ratio 1.3; Partial Thromboplastin Time 36.2 Seconds (21.0-31.0); Prothrombin Time 11.3 Seconds (9.0-12.0)
[2019-11-23] MEDS ORDERED: HYDROCODONE/ACETAMINOPHEN 7.5/325MG TAB PO STA (17:58)
--- NOTE | 2019-11-23 18:15 | Emergency Department Note ---
Impression & Plan Atrial fibrillation with rapid ventricular response, Chest pain, Acute hyponatremia, Abnormal ECG ED Provider Note INFORMANT: Patient family ED PROVIDER(S): Sky Bautista MD CHIEF COMPLAINT: Chest pain PLAN: Disposition: Admitted Condition: Good MEDICAL DECISION MAKING: Patient presented with Irene serna with RVR and chest pain. He had significant chest pain with rapid rate. This was controlled with IV diltiazem. He received 10 mg by EMS and 10 mg here. He did feel better with this. He also received 2 mg of morphine and 0.25 inch of Nitropaste. The patient had an unremarkable troponin. His CBC showed a moderate anemia which was stable. His chemistry panel revealed hyponatremia. The patient will need further management in the hospital. He did ask for his afternoon hydrocodone dose and was given this oral ly. The patient's case was discussed with Dr. Castro of the hospitalist service. He will evaluate the patient and decide on anticoagulation. Triage Nursing notes reviewed and agree them. Additional history obtained from family Prior medical records reviewed no prior history of A. daphne. Left bundle branch block old. Vital Signs: reviewed and remarkable for no significant abnormalities Differential diagnosis: Cardiac ischemia, dysrhythmia, aortic dissection, pulmonary embolism, pneumothorax, pneumonia, pericarditis, myocarditis, esophageal rupture, GERD, cholecystitis, pancreatitis, musculoskeletal, as well as other pathologies. Diagnostics interpreted by me: ECG #1: Rate: 105 Rhythm: Atrial fibrillation [place]: Normal QRS: Left bundle branch block ST segements: No ST elevation or depression Other: No PVCs ECG #2: Rate: 100 Rhythm: Atrial fibrillation [place]: Normal QRS: Left bundle branch block ST segements: No ST elevation or depression Other: No PVCs Cardiac Monitoring: Cardiac monitoring ordered by me: The patient was placed on continuous cardiac monitoring and observed. It revealed a atrial fibrillation at a rate of 115 beats per minute without ectopy. Imaging studies: Chest x-ray question some vascular crowding versus infiltrate in the base. The patient does not have any cough or shortness of breath. Consultation(s): [facility] hospitalist service HPI: The patient is a 74 year old male who presents to the Emergency Room with complaints of chest pain and palpitations. This started this afternoon and is improved after receiving 10 mg of IV diltiazem by EMS for atrial fibrillation with RVR. The patient also notes the following associated symptoms, fatigue. The patient has personally taken no medication for relieving factors. Current pain is rated as 1/10. Pain was 10 out of 10 before EMS treatment with diltiazem and control of rapid A. fib. Pt denies LOC, headache, fevers, chills, diaphoresis, visual changes, neck pain, breathing difficulties, nausea, vomiting, abdominal pain, back pain, melena, hematochezia, urinary symptoms, numbness, weakness, lymphadenopathy, rash, or other complaints. ROS: See above HPI for pertinent positives & negatives. A total of 10 systems reviewed and were otherwise negative. PAST MEDICAL HISTORY:See Below lung cancer, hyperlipidemia PAST SURGICAL HISTORY:See Below FAMILY HISTORY:See Below SOCIAL HISTORY:See Below lives with family HOME MEDICATIONS:See Below ALLERGIES:See Below VITALS:See Below PHYSICAL EXAMINATION: GENERAL: Awake, alert, mildly uncomfortable-appearing, in no distress HENT: Normocephalic, atraumatic. Oropharynx unremarkable. EYES: Normal conjunctiva. Sclera non-icteric. NECK: Inspection normal. Non-tender. Supple. No nuchal rigidity. FROM. No masses. RESPIRATORY: Clear to auscultation. No wheezes. No rales. Normal respiratory effort. CARDIAC: Tachycardic rate. Irregular rhythm. No murmurs. No rubs. Extremities warm and well perfused. Pulses equal. No JVD. GI: Soft, non-distended. No tenderness to palpation. No rebound or guarding. No masses. RECTAL: Deferred. MUSCULOSKELETAL: Atraumatic. Chest examination reveals no tenderness. The back is symmetrical on inspection without obvious abnormality. There is no CVA tenderness to palpation. No joint edema. LOWER EXTREMITIES: Calves are equal size bilaterally and non-tender. No edema. No discoloration. NEURO: Normal sensorium. No sensory or motor deficits noted. SKIN: No rash or jaundice noted. ED COURSE: Critical Care: I have personally spent greater than 35 minutes of critical care time in the direct management of this patient. This includes bedside care, interpretation o f diagnostic studies, and testing, discussion with consultants, patient, and family members, and other required patient management activities. These minutes are in excess of all separately billable procedures. Sky Bautista MD Past Med/Surg History Medical History (Updated 11/23/19 @ 18:18 by Sky Bautista MD) Anemia chronic, baseline hgb 9-10 range per chart review CAD (coronary artery disease), [place] coronary artery CABGx2 (2012), cardiac stents x2 (2012) CKD (chronic kidney disease) stage 4, GFR 15-29 ml/min under surveillance, no dialysis Colon cancer per records/pt denies hx of colon cancer COPD (chronic obstructive pulmonary disease) Degenerative disc disease Dysphagia Hiatal hernia History of cirrhosis of liver LBBB (left bundle branch block) chronic Lung cancer s/p multiple radiation tx, completed 06/2019 Lung nodule Myocardial Infarction Possible, evidence of old infarct on remote EKG Poor historian Surgical History H/O liver transplant 1992 History of anesthesia reaction Urinary retention History of bronchoscopy navigational bronchoscopy: 02/27/19: Grade view 1, MAC#3, ETT 8.5 at [facility] History of cataract surgery RT/LEFT History of cholecystectomy History of colonoscopy History of coronary artery bypass graft CABGx2 (2012) History of esophagogastroduodenoscopy (EGD) History of heart artery stent X 2 2012 History of liver biopsy History of open reduction and internal fixation (ORIF) procedure LEFT HIP History of tonsillectomy History of tooth extraction Patella fracture REPAIRED Family History Mother , age 92 old age Family history of diabetes mellitus Brother , diabetes does not remember age Family history of diabetes mellitus Cancer Father , CVA does not remember age No problems noted. Brother , age early 40s lymph nodes No problems noted. Sister , unknown No problems noted. Sister , COPD No problems noted. Sister No problems noted. Son No problems noted. Son No problems noted. Daughter No problems noted. Daughter No problems noted. 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, 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 [employer] Feels Safe at Home: Yes Childhood Exposure to Second-Hand Smoke: Yes caffeine: Yes (coffee twice a week ) during the past year weight has: decreased > 10 lbs Dental Care, Regularly: No Seatbelt Use: always Sunscreen Use: No Allergies Allergies Allergy/AdvReac Type Severity Reaction Status Date / Time bee venom protein (honey bee) Allergy Unknown swelling Verified 11/20/19 08:54 peas AdvReac Intermediate nausea and Verified 11/20/19 08:54 vomiting aspirin AdvReac Unknown INTERNAL Verified 11/20/19 08:54 BLEEDING, TOLD NOT TO TAKE LG DOSE Home Meds Home Medications Medication Instructions Recorded Confirmed docusate sodium 100 mg PO BID PRN #0 06/16/13 11/23/19 hydrocodone-acetaminophen 1 tab PO UD PRN #0 tab 06/16/13 11/23/19 tamsulosin [Flomax] 0.8 mg PO HS #0 cap 05/04/15 11/23/19 atorvastatin [Lipitor] 10 mg PO QAM #0 tab 11/16/16 11/23/19 cyanocobalamin (vitamin B-12) 500 mcg PO DAILY #0 tab 11/16/16 11/23/19 ipratropium bromide 2 spray INTRANASAL TID #0 11/16/16 11/23/19 metoprolol tartrate 12.5 mg PO BID #0 11/16/16 11/23/19 nitroglycerin 0.4 mg SUBLINGUAL TID PRN #0 11/16/16 11/23/19 albuterol sulfate 2 puff INHALATION Q6H PRN #0 10/19/17 11/23/19 cetirizine [Zyrtec] 10 mg PO DAILY #0 10/19/17 11/23/19 lisinopril 10 mg PO QAM 09/07/18 11/23/19 tacrolimus [Prograf] 1 mg PO BID 09/07/18 11/23/19 aspirin 81 mg PO QAM 10/23/18 11/23/19 fluticasone propionate 1 spray INTRANASAL DAILY 10/23/18 11/23/19 gabapentin 100 mg PO HS 10/23/18 11/23/19 ipratropium-albuterol 3 ml INHALATION QID PRN 10/23/18 11/23/19 sodium bicarbonate 1,300 mg PO BID 10/23/18 11/23/19 tiotropium 2.5 mcg-olodaterol 2.5 2 puffs INH QAM 03/20/19 11/23/19 mcg/actuation mist for inhalation amlodipine 2.5 mg tablet 2.5 mg PO QAM 09/19/19 11/23/19 Previous Rx's Medication Instructions Recorded isosorbide mononitrate 120 mg PO QAM #60 tab 09/07/19 Results & Data (ED) Vital Signs Vital Signs - 24 hr 11/23/19 14:59 11/23/19 15:02 11/23/19 15:10 Temperature Temperature Source Pulse Rate 103 H 107 H 113 H Pulse Rate from SpO2 Sensor 104 H 106 H 121 H Respiratory Rate 24 21 24 Respiratory Effort / Characteristics Respiratory Depth Respiratory Pattern Blood Pressure 144/53 H Blood Pressure Mean 67 Pulse Oximetry 95 91 95 Oxygen Delivery Method Sepsis Recent Fever Within 48 Hours Sepsis New/Unexplained Change in Mental Status Sepsis Action Taken by Nursing 11/23/19 15:11 11/23/19 15:20 11/23/19 15:30 Temperature 37.6 C H Temperature Source Oral Pulse Rate 97 H 122 H 112 H Pulse Rate from SpO2 Sensor 111 H Respiratory Rate 24 21 20 Respiratory Effort / Characteristics Non-Labored Respiratory Depth Normal Respiratory Pattern Regular Blood Pressure 144/53 H Blood Pressure Mean 83 Pulse Oximetry 95 95 Oxygen Delivery Method Room Air Sepsis Recent Fever Within 48 Hours No Sepsis New/Unexplained Change in Mental Status No Sepsis Action Taken by Nursing No Action Required 11/23/19 15:40 11/23/19 15:50 11/23/19 16:00 Temperature Temperature Source Pulse Rate 97 H 113 H 95 H Pulse Rate from SpO2 Sensor 105 H 117 H 105 H Respiratory Rate 22 19 17 Respiratory Effort / Characteristics Respiratory Depth Respiratory Pattern Blood Pressure Blood Pressure Mean Pulse Oximetry 96 96 96 Oxygen Delivery Method Sepsis Recent Fever Within 48 Hours Sepsis New/Unexplained Change in Mental Status Sepsis Action Taken by Nursing 11/23/19 16:10 11/23/19 16:20 11/23/19 16:30 Temperature Temperature Source Pulse Rate 121 H 113 H 125 H Pulse Rate from SpO2 Sensor 130 H 116 H 137 H Respiratory Rate 14 26 H 16 Respiratory Effort / Characteristics Respiratory Depth Respiratory Pattern Blood Pressure 130/67 143/72 H Blood Pressure Mean 86 97 Pulse Oximetry 98 97 98 Oxygen Delivery Method Sepsis Recent Fever Within 48 Hours Sepsis New/Unexplained Change in Mental Status Sepsis Action Taken by Nursing 11/23/19 16:40 11/23/19 16:50 11/23/19 17:00 Temperature Temperature Source Pulse Rate 96 H 103 H 110 H Pulse Rate from SpO2 Sensor 96 H 91 H 114 H Respiratory Rate 16 23 18 Respiratory Effort / Characteristics Respiratory Depth Respiratory Pattern Blood Pressure 134/65 Blood Pressure Mean 72 Pulse Oximetry 98 95 94 Oxygen Delivery Method Sepsis Recent Fever Within 48 Hours Sepsis New/Unexplained Change in Mental Status Sepsis Action Taken by Nursing 11/23/19 17:10 Temperature Temperature Source Pulse Rate 91 H Pulse Rate from SpO2 Sensor 87 Respiratory Rate 17 Respiratory Effort / Characteristics Respiratory Depth Respiratory Pattern Blood Pressure Blood Pressure Mean Pulse Oximetry 93 Oxygen Delivery Method Sepsis Recent Fever Within 48 Hours Sepsis New/Unexplained Change in Mental Status Sepsis Action Taken by Nursing Laboratory Data Result diagrams: 11/23/19 15:22 11/23/19 15:22 Lab Results 11/23/19 11/23/19 11/23/19 Range/Units 15:22 15:22 15:22 WBC 7.35 (4.8-10.8) K/uL RBC 2.87 L (4.7-6.1) M/uL Hgb 8.7 L (14.0-18.0) g/dL Hct 25.3 L (42-52) % MCV 88.2 (80-100) fL MCH 30.3 (25-34) pg MCHC 34.4 (32-36) g/dL RDW Std Deviation 47.4 H (36.4-46.3) fL RDW Coeff of Álvaro 14.5 (11.5-14.5) % Plt Count 167 (130-400) K/uL MPV 8.8 (7.4-10.4) fL Immature Gran % (Auto) 0.3 % Neut % (Auto) 84.5 % Lymph % (Auto) 4.2 % [place] % (Auto) 10.6 % Eos % (Auto) 0.3 % Baso % (Auto) 0.1 % Reticulocyte % (Auto) 0.6 (0.5-2.0) % Neut # (Auto) 6.21 (1.4-6.5) K/uL Lymph # (Auto) 0.31 L (1.2-3.4) K/uL [place] # (Auto) 0.78 H (0.11-0.59) K/uL Eos # (Auto) 0.02 (0-0.5) K/uL Baso # (Auto) 0.01 (0-0.2) K/uL Reticulocyte # 0.02 (0.02-0.10) 10^6/uL Immature Gran # (Auto) 0.02 (0.00-0.02) K/uL PT (9.0-12.0) Seconds INR (0.9-1.1) APTT (21.0-31.0) Seconds PTT Ratio Sodium 129 L (136-145) mmol/L Potassium 4.3 (3.5-5.1) mmol/L Chloride 100 (98-107) mmol/L Carbon Dioxide 23 (21-32) mmol/L Anion Gap 6.0 (3-11) BUN 22 H (7-18) mg/dl Creatinine 1.93 H (0.6-1.4) mg/dl Est Cr Clr Drug Dosing 26.9 ml/min Est GFR ( Amer) 38.4 Est GFR (Non-Af Amer) 33.1 BUN/Creatinine Ratio 11.6 (10-20) Glucose 116 H (70-99) mg/dl Osmolality (280-300) mOsm/kg Calcium 7.9 L (8.5-10.1) mg/dl Magnesium 1.6 L (1.8-2.4) mg/dl Total Bilirubin 0.6 (0.2-1) mg/dl AST 13 L (15-37) U/L ALT 10 L (12-78) U/L Alkaline Phosphatase 65 (45-117) U/L Troponin I < 0.015 (0-0.045) ng/ml Total Protein 6.1 L (6.4-8.2) gm/dl Albumin 2.6 L (3.4-5.0) gm/dl Globulin 3.5 (2.5-4.0) gm/dl Albumin/Globulin Ratio 0.7 L (0.9-2) Procalcitonin (0-0.5) ng/ml TSH 0.509 (0.300-4.500) uIu/ml 11/23/19 11/23/19 11/23/19 Range/Units 15:28 15:28 15:28 WBC (4.8-10.8) K/uL RBC (4.7-6.1) M/uL Hgb (14.0-18.0) g/dL Hct (42-52) % MCV (80-100) fL MCH (25-34) pg MCHC (32-36) g/dL RDW Std Deviation (36.4-46.3) fL RDW Coeff of Álvaro (11.5-14.5) % Plt Count (130-400) K/uL MPV (7.4-10.4) fL Immature Gran % (Auto) % Neut % (Auto) % Lymph % (Auto) % [place] % (Auto) % Eos % (Auto) % Baso % (Auto) % Reticulocyte % (Auto) Cancelled (0.5-2.0) % Neut # (Auto) (1.4-6.5) K/uL Lymph # (Auto) (1.2-3.4) K/uL [place] # (Auto) (0.11-0.59) K/uL Eos # (Auto) (0-0.5) K/uL Baso # (Auto) (0-0.2) K/uL Reticulocyte # Cancelled (0.02-0.10) 10^6/uL Immature Gran # (Auto) (0.00-0.02) K/uL PT (9.0-12.0) Seconds INR (0.9-1.1) APTT (21.0-31.0) Seconds PTT Ratio Sodium (136-145) mmol/L Potassium (3.5-5.1) mmol/L Chloride (98-107) mmol/L Carbon Dioxide (21-32) mmol/L Anion Gap (3-11) BUN (7-18) mg/dl Creatinine (0.6-1.4) mg/dl Est Cr Clr Drug Dosing ml/min Est GFR ( Amer) Est GFR (Non-Af Amer) BUN/Creatinine Ratio (10-20) Glucose (70-99) mg/dl Osmolality 274 L (280-300) mOsm/kg Calcium (8.5-10.1) mg/dl Magnesium (1.8-2.4) mg/dl Total Bilirubin (0.2-1) mg/dl AST (15-37) U/L ALT (12-78) U/L Alkaline Phosphatase (45-117) U/L Troponin I (0-0.045) ng/ml Total Protein (6.4-8.2) gm/dl Albumin (3.4-5.0) gm/dl Globulin (2.5-4.0) gm/dl Albumin/Globulin Ratio (0.9-2) Procalcitonin < 0.05 (0-0.5) ng/ml TSH (0.300-4.500) uIu/ml 11/23/19 Range/Units 15:28 WBC (4.8-10.8) K/uL RBC (4.7-6.1) M/uL Hgb (14.0-18.0) g/dL Hct (42-52) % MCV (80-100) fL MCH (25-34) pg MCHC (32-36) g/dL RDW Std Deviation (36.4-46.3) fL RDW Coeff of Álvaro (11.5-14.5) % Plt Count (130-400) K/uL MPV (7.4-10.4) fL Immature Gran % (Auto) % Neut % (Auto) % Lymph % (Auto) % [place] % (Auto) % Eos % (Auto) % Baso % (Auto) % Reticulocyte % (Auto) (0.5-2.0) % Neut # (Auto) (1.4-6.5) K/uL Lymph # (Auto) (1.2-3.4) K/uL [place] # (Auto) (0.11-0.59) K/uL Eos # (Auto) (0-0.5) K/uL Baso # (Auto) (0-0.2) K/uL Reticulocyte # (0.02-0.10) 10^6/uL Immature Gran # (Auto) (0.00-0.02) K/uL PT 11.3 (9.0-12.0) Seconds INR 1.1 (0.9-1.1) APTT 36.2 H (21.0-31.0) Seconds PTT Ratio 1.3 Sodium (136-145) mmol/L Potassium (3.5-5.1) mmol/L Chloride (98-107) mmol/L Carbon Dioxide (21-32) mmol/L Anion Gap (3-11) BUN (7-18) mg/dl Creatinine (0.6-1.4) mg/dl Est Cr Clr Drug Dosing ml/min Est GFR ( Amer) Est GFR (Non-Af Amer) BUN/Creatinine Ratio (10-20) Glucose (70-99) mg/dl Osmolality (280-300) mOsm/kg Calcium (8.5-10.1) mg/dl Magnesium (1.8-2.4) mg/dl Total Bilirubin (0.2-1) mg/dl AST (15-37) U/L ALT (12-78) U/L Alkaline Phosphatase (45-117) U/L Troponin I (0-0.045) ng/ml Total Protein (6.4-8.2) gm/dl Albumin (3.4-5.0) gm/dl Globulin (2.5-4.0) gm/dl Albumin/Globulin Ratio (0.9-2) Procalcitonin (0-0.5) ng/ml TSH (0.300-4.500) uIu/ml Administered Medications Sodium Chloride (Nss 1000ml) 1,000 mls @ 125 mls/hr IV .Q8H STA Stop: 11/23/19 22:55 Last Admin: 11/23/19 15:25 Dose: 125 mls/hr Documented by: [id number] Discontinued Medications Diltiazem HCl (Diltiazem Hcl 5 Mg/Ml 5 Ml Vial) 10 mg IV NOW STA Stop: 11/23/19 16:26 Last Admin: 11/23/19 16:34 Dose: 10 mg Documented by: [id number] Cosigned by: [id number] Morphine Sulfate (Morphine Sulfate 2 Mg/Ml Carp) 2 mg IV NOW STA Stop: 11/23/19 17:05 Last Admin: 11/23/19 17:12 Dose: 2 mg Documented by: [id number] Nitroglycerin (Nitroglycerin 2% Ointment 30gm Tube) 0.5 inch EXT NOW STA Stop: 11/23/19 17:05 Last Admin: 11/23/19 17:12 Dose: Not Given Documented by: [id number] Nitroglycerin (Nitroglycerin 2% Ointment 30gm Tube) 0.25 inch EXT NOW STA Stop: 11/23/19 17:06 Last Admin: 11/23/19 17:12 Dose: 0.25 inch Documented by: [id number] Discharge Plan Visit Data Chief Complaint: Chest Pain Stated Complaint: New Onset Afib RVR Hx Lung CA ED Provider: Sky Bautista Discharge Problem: Atrial fibrillation with rapid ventricular response, Chest pain, Acute hyponatremia, Abnormal ECG Forms Stand Alone Forms: [facility] Prescriptions Prescriptions: No Action Stiolto Respimat 2.5-2.5 mcg/actuation mist 2 puffs INH QAM RF: 0 hydrocodone-acetaminophen 7.5-325 mg Tablet 1 tab PO UD PRN (Reason: Pain) Qty: 0 RF: 0 docusate sodium 100 mg Tablet 100 mg PO BID PRN (Reason: Constipation) Qty: 0 RF: 0 tamsulosin [Flomax] 0.4 mg Capsule 0.8 mg PO HS Qty: 0 RF: 0 ipratropium bromide 0.03 % [place],Non-Aerosol 2 spray INTRANASAL TID Qty: 0 RF: 0 atorvastatin [Lipitor] 10 mg Tablet 10 mg PO QAM Qty: 0 RF: 0 cyanocobalamin (vitamin B-12) 500 mcg Tablet 500 mcg PO DAILY Qty: 0 RF: 0 nitroglycerin 0.4 mg Tablet, Sublingual 0.4 mg sublingual TID PRN (Reason: Chest Pain) Qty: 0 RF: 0 metoprolol tartrate 25 mg Tablet 12.5 mg PO BID Qty: 0 RF: 0 cetirizine [Zyrtec] 10 mg Tablet 10 mg PO DAILY Qty: 0 RF: 0 albuterol sulfate 90 mcg/actuation Hfa Aerosol Inhaler 2 puff INHALATION Q6H PRN (Reason: copd) Qty: 0 RF: 0 amlodipine 2.5 mg tablet 2.5 mg PO QAM RF: 0 lisinopril 10 mg Tablet 10 mg PO QAM RF: 0 tacrolimus [Prograf] 1 mg Capsule 1 mg PO BID RF: 0 ipratropium-albuterol 0.5 mg-3 mg(2.5 mg base)/3 mL Solution For Nebulization 3 ml INHALATION QID PRN (Reason: Shortness Of Breath) RF: 0 aspirin 81 mg Tablet,Delayed Release (Dr/Ec) 81 mg PO QAM RF: 0 sodium bicarbonate 650 mg Tablet 1,300 mg PO BID RF: 0 gabapentin 100 mg Capsule 100 mg PO HS RF: 0 fluticasone propionate 50 mcg/actuation [place],Suspension 1 spray INTRANASAL DAILY RF: 0 isosorbide mononitrate 60 mg Tablet Extended Release 24 Hr 120 mg PO QAM Qty: 60 RF: 5
[2019-11-23] MEDS: MAGNESIUM SULFATE / D5W 1 GM/100 ML BAG IV SCH ×2 (18:23→19:55)
[2019-11-23] MEDS ORDERED: METOPROLOL TARTRATE 25 MG TAB PO STA (18:40)
--- NOTE | 2019-11-23 18:48 | History & Physical Report ---
Date of Service November 23, 2019 Assessment & Plan (1) Atrial fibrillation with rapid ventricular response: Rate better controlled with diltiazem given by EMS and ER. However patient already taking metoprolol therefore plan to just increase this. Additional metoprolol 12.5mg PO now. Additional doses pending clinical course. Anticoagulation with IV heparin drip (no bolus) due to anemia and concern this may need to be stopped. TSH WNL Given recent cardiac workup will defer whether further TTE is warranted to cardiology. (2) Chest pain: Trend troponin to see if consistent with ACS vs. demand-ischemia from rate. (3) Anemia: Add Ferritin, iron sats, B12, folate. Recently was supposed to have EGD and colonoscopy in September although case was cancelled due to chest pain and patient transferred to the ER. If iron def. anemia, will consider inpatient GI consult due to new indication for anticoagulation. Trend H&H while on heparin. Type and screen (4) Acute hyponatremia: Serum, urine osm, urine Na. Repeat BMP in a.m. Unclear etiology on admission but appears to be somewhat dehydrated on no diuretics. (5) Hypertension: Hold amlodipine to allow BP to uptitrate metoprolol. Continue ISMN 120mg PO QAM, lisinopril 10mg PO QAM (6) COPD (chronic obstructive pulmonary disease) with emphysema: Continue Inspiolto Respimat (7) BPH (benign prostatic hyperplasia): Continue tamsulosin (8) Hypomagnesemia: Mg sulphate 1g IV Repeat level with AM labs (9) CAD (coronary artery disease), [place] coronary artery: Continue aspirin, metoprolol as above, lisinopril 10 mg p.o. every morning, atorvastatin 10 mg p.o. every morning. (10) DVT prophylaxis: IV heparin as above Admission and Anticipated Discharge Date Admission Date: 11/23/2019 History of Present Illness Chief Complaint: Chest pain Primary Care Provider: Imelda Lama PA-C Shawn Khan is a 74 year old male who presents to the ER with sudden onset chest pain. This was substernal and radiated across his upper chest. Started at 12-12:30pm while he was taking the laundry out of the dryer with minimal exertion. Severity 10/10 at worst. He took nitroglycerin x2 which didn't help. Associated shortness of breath, diaphoresis, palpitations. No nausea. No relief with rest. He was brought in by EMS and noted to be in atrial fibrillation with rapid ventricular rate and given diltiazem 10 mg IV on route. In the ER he received an additional IV diltiazem 10 mg IV with rate much better controlled around 100-110 and current chest pain much improved with severity 3/10. associated shortness of breath, felt hot, no nausea. He reports being given x2 aspirin from police who turned up fast and an additional x4 aspirin from EMS. This is on a background of recent bronchoscopy performed just 3 days ago. This was done due to evaluate an ongoing lung nodule on a background of non-small cell carcinoma with completed stereotactic radiation. He reports good recovery from this although has been coughing more with initial hemoptysis but none for the previous 24 hours. He also had a recent admission in September after having chest pain on lying down for his outpatient EGD/colonoscopy which had to be abandoned and the patient was sent to the ER. 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 Prior cardiology consult in September reports two-vessel CABG 2013 with question MARC to LAD and RCA. He was discharged in September with a diagnosis of stable/unstable angina and isosorbide mononitrate was increased. He did not take his antihypertensives the morning of the endoscopy therefore appears to be consistent with hypertensive emergency. He is a liver transplant patient on tacrolimus. He denies any orthopnea, PND, claudication, presyncope or syncope. Given increased coughing although suspect related to his bronchoscopy, mild chest x-ray changes, and acute on chronic decrease in his lymphocyte count we will repeat his COVID-19 test prior to departing the ER. Allergies Allergy/AdvReac Type Severity Reaction Status Date / Time bee venom protein (honey bee) Allergy Unknown swelling Verified 11/20/19 08:54 peas AdvReac Intermediate nausea and Verified 11/20/19 08:54 vomiting aspirin AdvReac Unknown INTERNAL Verified 11/20/19 08:54 BLEEDING, TOLD NOT TO TAKE LG DOSE Home Medications Home Medications Medication Instructions Recorded Confirmed Type docusate sodium 100 mg PO BID PRN #0 06/16/13 11/23/19 History hydrocodone-acetaminophen 1 tab PO UD PRN #0 tab 06/16/13 11/23/19 History tamsulosin [Flomax] 0.8 mg PO HS #0 cap 05/04/15 11/23/19 History atorvastatin [Lipitor] 10 mg PO QAM #0 tab 11/16/16 11/23/19 History cyanocobalamin (vitamin B-12) 500 mcg PO DAILY #0 tab 11/16/16 11/23/19 History ipratropium bromide 2 spray INTRANASAL TID #0 11/16/16 11/23/19 History nitroglycerin 0.4 mg SUBLINGUAL TID PRN #0 11/16/16 11/23/19 History albuterol sulfate 2 puff INHALATION Q6H PRN #0 10/19/17 11/23/19 History cetirizine [Zyrtec] 10 mg PO DAILY #0 10/19/17 11/23/19 History lisinopril 10 mg PO QAM 09/07/18 11/23/19 History tacrolimus [Prograf] 1 mg PO BID 09/07/18 11/23/19 History aspirin 81 mg PO QAM 10/23/18 11/23/19 History fluticasone propionate 1 spray INTRANASAL DAILY 10/23/18 11/23/19 History gabapentin 100 mg PO HS 10/23/18 11/23/19 History ipratropium-albuterol 3 ml INHALATION QID PRN 10/23/18 11/23/19 History sodium bicarbonate 1,300 mg PO BID 10/23/18 11/23/19 History tiotropium 2.5 mcg-olodaterol 2.5 2 puffs INH QAM 03/20/19 11/23/19 History mcg/actuation mist for inhalation isosorbide mononitrate 120 mg PO QAM #60 tab 09/07/19 11/23/19 Rx amlodipine 2.5 mg tablet 2.5 mg PO QAM 09/19/19 11/23/19 History metoprolol tartrate 25 mg PO BID 30 Days #60 tab 11/24/19 Rx pantoprazole 40 mg PO QAM 30 Days #30 tab 11/24/19 Rx Past Med/Surg History Medical History Anemia chronic, baseline hgb 9-10 range per chart review CAD (coronary artery disease), [place] coronary artery CABGx2 (2012), cardiac stents x2 (2012) CKD (chronic kidney disease) stage 4, GFR 15-29 ml/min under surveillance, no dialysis Colon cancer per records/pt denies hx of colon cancer COPD (chronic obstructive pulmonary disease) Degenerative disc disease Dysphagia Hiatal hernia History of cirrhosis of liver LBBB (left bundle branch block) chronic Lung cancer s/p multiple radiation tx, completed 06/2019 Lung nodule Myocardial Infarction Possible, evidence of old infarct on remote EKG Poor historian Surgical History H/O liver transplant 1992 History of anesthesia reaction Urinary retention History of bronchoscopy navigational bronchoscopy: 02/27/19: Grade view 1, MAC#3, ETT 8.5 at [facility] History of cataract surgery RT/LEFT History of cholecystectomy History of colonoscopy History of coronary artery bypass graft CABGx2 (2012) History of esophagogastroduodenoscopy (EGD) History of heart artery stent X 2 2012 History of liver biopsy History of open reduction and internal fixation (ORIF) procedure LEFT HIP History of tonsillectomy History of tooth extraction Patella fracture REPAIRED Family History Mother , age 92 old age Family history of diabetes mellitus Brother , diabetes does not remember age Family history of diabetes mellitus Cancer Father , CVA does not remember age No problems noted. Brother , age early 40s lymph nodes No problems noted. Sister , unknown No problems noted. Sister , COPD No problems noted. Sister No problems noted. Son No problems noted. Son No problems noted. Daughter No problems noted. Daughter No problems noted. Social History Smoking Status: Current some day smoker Age Started Using Tobacco: 13; Cigarettes Per Day: 1.5 PACK PER WEEK / ADVISED NPO; Second Hand Exposure: Yes; Hx Alcohol Use: Yes Alcohol type: beer Alcohol Intake Frequency Comment: 1-2 beers per week Hx Substance Use: No Preferred Language: Persian Communication Ability: Effective Hearing Ability: Use of Hearing Aid [employer] Required: No Beliefs That Will Affect Care: None marital status: Current Living Situation: Alone Current Living Situation Comment: lives alone, at [place] current occupational status: retired 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, 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 [employer] Feels Safe at Home: Yes Childhood Exposure to Second-Hand Smoke: Yes caffeine: Yes (coffee twice a week ) during the past year weight has: decreased > 10 lbs Dental Care, Regularly: No Seatbelt Use: always Sunscreen Use: No Review of Systems Review of Systems: All systems reviewed & are unremarkable except as noted in HPI & below Physical Exam Constitutional: well developed and well nourished; no acute distress Eyes: PERRL, conjunctivae normal, anicteric sclerae ENMT: external ear and nose normal, oropharynx normal Neck: trachea midline, no thyromegaly Respiratory: normal respiratory effort, lungs clear to auscultation Cardiovascular: Rate/Rhythm: + tachycardic and + irregularly irregular Heart Sounds: no murmur Vessels: no JVD Extremities: normal capillary refill and + pedal edema (Trace to mid shins equal bilaterally); no calf tendern ess Gastrointestinal (Abdomen): normal bowel sounds, soft, nontender, no hepatosplenomegaly Musculoskeletal: no cyanosis or clubbing, extremities motor strength 5/5 Skin: no rashes, warm and dry Neurologic: moves all extremities and awake; no focal motor deficits and not confused Speech / Cognition: normal speech Motor/Sensory: no tremor Psychiatric: A+Ox3, euthymic affect Genitourinary: no CVA tenderness Results & Data Results & Data ([facility]) Vital Signs (Past 12 Hours) Vital Signs Temp Pulse Resp BP Pulse Ox 11/23/19 18:30 102 H 22 97 11/23/19 18:20 112 H 19 95 11/23/19 18:10 95 H 18 95 11/23/19 18:00 97 H 14 112/58 L 95 11/23/19 17:50 90 15 96 11/23/19 17:40 91 H 17 95 11/23/19 17:30 97 H 15 111/49 L 97 11/23/19 17:20 93 H 21 97 11/23/19 17:10 91 H 17 93 11/23/19 17:00 110 H 18 134/65 94 11/23/19 16:50 103 H 23 95 11/23/19 16:40 96 H 16 98 11/23/19 16:30 125 H 16 143/72 H 98 11/23/19 16:20 113 H 26 H 97 11/23/19 16:10 121 H 14 130/67 98 11/23/19 16:00 95 H 17 96 11/23/19 15:50 113 H 19 96 11/23/19 15:40 97 H 22 96 11/23/19 15:30 112 H 20 11/23/19 15:20 122 H 21 95 11/23/19 15:11 37.6 C H 97 H 24 144/53 H 95 11/23/19 15:10 113 H 24 95 11/23/19 15:02 107 H 21 91 11/23/19 14:59 103 H 24 144/53 H 95 Laboratory Results XR chest 1V portable IMPRESSION: Increased markings within the left lung base which could be due to vascular crowding from the emphysema or a developing pneumonia. ECG Indication: chest pain Rate (beats per minute): 100 Findings: + LBBB Comparison ECG Date: from (September 07, 2019) Change: the following changes noted (Atrial fibrillation is new, LBBB is not new) Code Status & VTE Plan Code Status Full -as discussed with the patient VTE Prophylaxis Plan VTE Prophylaxis will be ordered: Yes PG Care Time/CCT Total # of Minutes Spent Total Time Spent with Patient: Total time spent is greater than 50% in coordination of care (as documented) at patient's floor/unit and/or counseling patient: Coding Level of Care Code 90893 Initial Inpt Care Lvl 3 Diagnoses Atrial fibrillation with rapid ventricular response I48.91 Chest pain R07.9 Anemia D64.9 Acute hyponatremia E87.1 Hypertension I10 COPD (chronic obstructive pulmonary disease) with emphysema J43.9 BPH (benign prostatic hyperplasia) N40.0 Hypomagnesemia E83.42 CAD (coronary artery disease), [place] coronary artery I25.10 DVT prophylaxis Z29.9
[2019-11-23 18:52] LABS: Ferritin 201.8 ng/ml (8-388)
[2019-11-23] MEDS ORDERED: HEPARIN SODIUM/DEXTROSE 25,000 UNITS/500 ML BAG IV SCH (19:00)
[2019-11-23] MEDS ORDERED: Heparin IV Standard *NO* Bolus IV ONE (19:00)
[2019-11-23] MEDS ORDERED: HEPARIN 25000 UNIT/500 ML D5W IV ONE (19:09)
[2019-11-23 19:11] LABS: Folate (Folic Acid) 10.06 ng/ml (>5.38)
[2019-11-23] MEDS ORDERED: NITROGLYCERIN SL 0.4 MG/TAB TAB SL PRN (21:44)
[2019-11-23] MEDS ORDERED: HYDROCODONE/ACETAMINOPHEN 7.5/325MG TAB PO PRN (21:44)
[2019-11-23] MEDS ORDERED: ALBUT/IPRATROP 3MG/0.5MG NEB 3 ML VIAL INH PRN (21:44)
[2019-11-23] MEDS ORDERED: ACETAMINOPHEN 325 MG TAB PO PRN (21:44)
[2019-11-23] MEDS ORDERED: ALBUTEROL HFA 8 GM INHALER INH PRN (21:44)
[2019-11-23] MEDS ORDERED: DOCUSATE SODIUM 100 MG CAP PO PRN (21:49)
[2019-11-23] MEDS ORDERED: TAMSULOSIN HCL 0.4 MG CAP PO SCH (22:00)
[2019-11-23] MEDS ORDERED: GABAPENTIN 100 MG CAP PO SCH (22:00)
[2019-11-23] MEDS: SODIUM BICARBONATE 650 MG TAB PO SCH (22:09)
[2019-11-23] MEDS: TACROLIMUS 1 MG CAP PO SCH (22:09)
[2019-11-23] MEDS ORDERED: METOPROLOL TARTRATE 25 MG TAB PO ONE (23:31)
[2019-11-24 00:52] LABS: BUN Creatinine Ratio 11.5 (10-20); Calcium 7.9 mg/dl (8.5-10.1); Creatinine Clr Calc Pharmacy 26.5 ml/min; Est GFR (African American) 40.1; Est GFR (Non-African American) 34.6; Potassium 4.1 mmol/L (3.5-5.1)
[2019-11-24 01:00] LABS: Hematocrit (blood only) 24.2 % (42-52)
[2019-11-24 01:02] LABS: Troponin I 0.057 ng/ml (0-0.045)
[2019-11-24 01:17] LABS: Partial Thromboplastin Ratio 2.9
[2019-11-24 01:30] LABS: Partial Thromboplastin Time 80.6 Seconds (21.0-31.0)
[2019-11-24] MEDS ORDERED: PANTOprazole 40 MG in SYRINGE 0 ML IV ONE (01:54)
[2019-11-24] MEDS: TACROLIMUS 1 MG CAP PO SCH (08:14)
[2019-11-24] MEDS: SODIUM BICARBONATE 650 MG TAB PO SCH (08:15)
[2019-11-24 08:19] LABS: Basophils # (auto) 0.01 K/uL (0-0.2); Basophils % (auto) 0.2 %; Eosinophils # (auto) 0.05 K/uL (0-0.5); Eosinophils % (auto) 0.9 %; Hematocrit (blood only) 26.3 % (42-52); Hemoglobin 8.9 g/dL (14.0-18.0); Immature Granulocytes # (auto) 0.02 K/uL (0.00-0.02); Immature Granulocytes % (auto) 0.4 %; Lymphocytes # (auto) 0.48 K/uL (1.2-3.4); Lymphocytes % (auto) 8.9 %; Mean Corpuscular Hemoglobin 29.3 pg (25-34); Mean Corpuscular Hgb Conc 33.8 g/dL (32-36); Mean Corpuscular Volume 86.5 fL (80-100); Mean Platelet Volume 8.7 fL (7.4-10.4); Monocytes # (auto) 0.52 K/uL (0.11-0.59); Monocytes % (auto) 9.6 %; Neutrophils # (auto) 4.31 K/uL (1.4-6.5); Platelet Count 179 K/uL (130-400); RDW Coefficient of Variation 14.5 % (11.5-14.5); RDW Standard Deviation 45.9 fL (36.4-46.3); Red Blood Count 3.04 M/uL (4.7-6.1); White Blood Count 5.39 K/uL (4.8-10.8)
[2019-11-24 08:51] LABS: Albumin Level 2.3 gm/dl (3.4-5.0); BUN Creatinine Ratio 11.1 (10-20); Calcium 8.4 mg/dl (8.5-10.1); Creatinine Clr Calc Pharmacy 26.6 ml/min; Est GFR (African American) 40.4; Est GFR (Non-African American) 34.8; Magnesium 2.3 mg/dl (1.8-2.4); Potassium 4.1 mmol/L (3.5-5.1)
[2019-11-24 08:56] LABS: Albumin Globulin Ratio 0.6 (0.9-2); Bilirubin,Total 0.6 mg/dl (0.2-1); Globulin 3.7 gm/dl (2.5-4.0); Troponin I 0.042 ng/ml (0-0.045)
[2019-11-24] MEDS ORDERED: ATORVASTATIN 10 MG TAB PO SCH (09:00)
[2019-11-24] MEDS ORDERED: CYANOCOBALAMIN 500 MCG TABLET (VITAMIN B-12) PO SCH (09:00)
[2019-11-24] MEDS ORDERED: AMLODIPINE BESYLATE 5 MG TAB PO SCH (09:00)
[2019-11-24] MEDS ORDERED: ASPIRIN 81 MG ECTAB PO SCH (09:00)
[2019-11-24] MEDS ORDERED: CETIRIZINE HCL 10 MG TABLET PO SCH (09:00)
[2019-11-24] MEDS ORDERED: lisinopriL 10 MG TAB PO SCH (09:00)
[2019-11-24] MEDS ORDERED: ISOSORBIDE MONO EXTENDED REL 60 MG TABCR PO SCH (09:00)
[2019-11-24] MEDS ORDERED: UMECLIDINIUM/VILANTEROL 62.5/25MCG 7 PUFFS/INHALER INH SCH (09:00)
[2019-11-24] MEDS ORDERED: METOPROLOL TARTRATE 25 MG TAB PO SCH (09:00)
[2019-11-24] MEDS ORDERED: FLUTICASONE PROPIONATE NA SPR 16 GM BTL NAE SCH (09:00)
--- NOTE | 2019-11-24 09:36 | History & Physical Report ---
Date of Service November 24, 2019 Assessment & Plan (1) Atrial fibrillation with rapid ventricular response: (2) Chest pain: (3) Dysphagia: (4) Anemia: Recommend starting Protonix 40 mg by mouth daily Due to cardiac history and no acute change in Hgb and no overt bleeding I would defer endoscopic evaluation due to risk of complications from invasive workup Could check CT scan of the Abd/Pelvis with PO and IV contrast to evaluate for GI malignancy Will leave decision regarding anticoagulation up to the Cardiology, and hospitalist team based on Risk benefit analysis Admission and Anticipated Discharge Date Admission Date: November 23, 2019 History of Present Illness Chief Complaint: Iron Deficiency Anemia and need for anticoagulation Primary Care Provider: Imelda Lama PA-C Shawn Khan is a 74 yo CM with an extensive PMHx including CAD, Bronchogenic malignancy, history of Liver transplant, and chronic kidney disease, who presented to the ER last night after developing chest pain while changing a load of laundry. He presented to the ER, and was admitted due to his symptoms and evidence of A-fib with RVR. Initially he was started on a heparin gtt, however, this was stopped during the night. I was asked to see the patient in consultati on for iron deficiency anemia. The patient has had similar levels of anemia for months. He denies any overt GI bleeding. He was to undergo a workup for anemia with an EGD and colonoscopy in September, however, he developed chest pain and his procedures were cancelled and he was transferred to the ER. At that time, he was seen by Dr. Guido of cardiology who felt that the patient was best served to be medically managed, due to the risk of further invasive cardiac procedures. He did have a subsequent stress echo which showed no findings requiring any intervention. He also had a Barium swallow performed on 09/16, however, this test was also aborted following aspiration of the barium. He has also been undergoing chest imaging for a bronchogenic malignancy. At the time I saw the patient, he was sitting up in bed eating his breakfast. He states that his chest pain has resolved. He denies any fevers, chills, nausea, vomiting, diarrhea, hematemesis, melena, or hematochezia. He states he only takes Rolaids at home for rare episodes of heartburn which occur 1-2 times per week. He does continue to have some dysphagia at times with solids and liquids. He has no further complaints. Allergies Allergy/AdvReac Type Severity Reaction Status Date / Time bee venom protein (honey bee) Allergy Unknown swelling Verified 11/20/19 08:54 peas AdvReac Intermediate nausea and Verified 11/20/19 08:54 vomiting aspirin AdvReac Unknown INTERNAL Verified 11/20/19 08:54 BLEEDING, TOLD NOT TO TAKE LG DOSE Home Medications Home Medications Medication Instructions Recorded Confirmed Type docusate sodium 100 mg PO BID PRN #0 06/16/13 11/23/19 History hydrocodone-acetaminophen 1 tab PO UD PRN #0 tab 06/16/13 11/23/19 History tamsulosin [Flomax] 0.8 mg PO HS #0 cap 05/04/15 11/23/19 History atorvastatin [Lipitor] 10 mg PO QAM #0 tab 11/16/16 11/23/19 History cyanocobalamin (vitamin B-12) 500 mcg PO DAILY #0 tab 11/16/16 11/23/19 History ipratropium bromide 2 spray INTRANASAL TID #0 11/16/16 11/23/19 History metoprolol tartrate 12.5 mg PO BID #0 11/16/16 11/23/19 History nitroglycerin 0.4 mg SUBLINGUAL TID PRN #0 11/16/16 11/23/19 History albuterol sulfate 2 puff INHALATION Q6H PRN #0 10/19/17 11/23/19 History cetirizine [Zyrtec] 10 mg PO DAILY #0 10/19/17 11/23/19 History lisinopril 10 mg PO QAM 09/07/18 11/23/19 History tacrolimus [Prograf] 1 mg PO BID 09/07/18 11/23/19 History aspirin 81 mg PO QAM 10/23/18 11/23/19 History fluticasone propionate 1 spray INTRANASAL DAILY 10/23/18 11/23/19 History gabapentin 100 mg PO HS 10/23/18 11/23/19 History ipratropium-albuterol 3 ml INHALATION QID PRN 10/23/18 11/23/19 History sodium bicarbonate 1,300 mg PO BID 10/23/18 11/23/19 History tiotropium 2.5 mcg-olodaterol 2.5 2 puffs INH QAM 03/20/19 11/23/19 History mcg/actuation mist for inhalation isosorbide mononitrate 120 mg PO QAM #60 tab 09/07/19 11/23/19 Rx amlodipine 2.5 mg tablet 2.5 mg PO QAM 09/19/19 11/23/19 History Past Med/Surg History Medical History (Updated 11/24/19 @ 01:23 by Skyler Castro MD) Anemia chronic, baseline hgb 9-10 range per chart review CAD (coronary artery disease), [place] coronary artery CABGx2 (2012), cardiac stents x2 (2012) CKD (chronic kidney disease) stage 4, GFR 15-29 ml/min under surveillance, no dialysis Colon cancer per records/pt denies hx of colon cancer COPD (chronic obstructive pulmonary disease) Degenerative disc disease Dysphagia Hiatal hernia History of cirrhosis of liver LBBB (left bundle branch block) chronic Lung cancer s/p multiple radiation tx, completed 06/2019 Lung nodule Myocardial Infarction Possible, evidence of old infarct on remote EKG Poor historian Surgical History H/O liver transplant 1992 History of anesthesia reaction Urinary retention History of bronchoscopy navigational bronchoscopy: 02/27/19: Grade view 1, MAC#3, ETT 8.5 at [facility] History of cataract surgery RT/LEFT History of cholecystectomy History of colonoscopy History of coronary artery bypass graft CABGx2 (2012) History of esophagogastroduodenoscopy (EGD) History of heart artery stent X 2 2012 History of liver biopsy History of open reduction and internal fixation (ORIF) procedure LEFT HIP History of tonsillectomy History of tooth extraction Patella fracture REPAIRED Family History Mother , age 92 old age Family history of diabetes mellitus Brother , diabetes does not remember age Family history of diabetes mellitus Cancer Father , CVA does not remember age No problems noted. Brother , age early 40s lymph nodes No problems noted. Sister , unknown No problems noted. Sister , COPD No problems noted. Sister No problems noted. Son No problems noted. Son No problems noted. Daughter No problems noted. Daughter No problems noted. 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, 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 [employer] Feels Safe at Home: Yes Safety Concerns: Feels Safe At This Time Childhood Exposure to Second-Hand Smoke: Yes caffeine: Yes (coffee twice a week ) during the past year weight has: decreased > 10 lbs Dental Care, Regularly: No Seatbelt Use: always Sunscreen Use: No Review of Systems All systems reviewed & are unremarkable except as noted in HPI & below Physical Exam Constitutional: + ill appearing and + frail appearing Eyes: PERRL, conjunctivae normal, anicteric sclerae ENMT: external ear and nose normal, oropharynx normal Neck: trachea midline, no thyromegaly Respiratory: normal respiratory effort, lungs clear to auscultation Cardiovascular: Rate/Rhythm: + irregularly irregular Gastrointestinal (Abdomen): normal bowel sounds, soft, nontender, no hepatosplenomegaly Skin: no rashes, warm and dry Psychiatric: A+Ox3, euthymic affect Results & Data ([facility]) Vital Signs (Past 12 Hours) Vital Signs Temp Pulse Resp BP Pulse Ox 11/24/19 08:33 36.6 C 69 18 152/50 H 96 11/24/19 04:00 36.8 C 63 16 154/63 H 95 11/24/19 00:00 36.6 C 66 18 137/52 L 97 11/23/19 21:58 37.1 C 82 18 147/61 H 97 Code Status & VTE Plan VTE Prophylaxis Plan VTE Prophylaxis will be ordered: Yes Coding Level of Care Code 72480 Initial Inpt Care Lvl 3 Diagnoses Atrial fibrillation with rapid ventricular response I48.91 Chest pain R07.9 Dysphagia R13.10 Anemia D64.9
[2019-11-24] MEDS ORDERED: PANTOprazole 40 MG TAB PO SCH (10:30)
[2019-11-24 10:45] VITALS: BP 141/50; TEMP 98.4; O2SAT 93
[2019-11-24 10:51] LABS: Appearance Urine Clear (Clear); Bacteria Urine Automated Negative (Negative); Bilirubin Urine Negative (Negative); Blood Urine Negative (Negative); Cast Urine Automated 0 /lpf (0-5); Color Urine Yellow; Glucose Urine UA Negative (Negative); Ketones Urine Negative (Negative); Leukocyte Esterase Urine Negative (Negative); Nitrite Urine Negative (Negative); Protein Urine 2+ (Negative); RBC Urine Automated 0-4 /hpf (0-4); Specific Gravity Urine 1.012 (1.000-1.030); Urobilinogen Urine Negative (Negative); WBC Urine Automated 0 /hpf (0-5)
[2019-11-24] MEDS ORDERED: PANTOprazole 40 MG in SYRINGE 0 ML IV SCH (11:00)
[2019-11-24 14:34] VITALS: PULSE 69
--- NOTE | 2019-11-25 09:22 | Electrocardiogram Report ---
Test Reason : Blood Pressure : / mmHG Vent. Rate : 105 BPM Atrial Rate : 120 BPM P-R Int : 000 ms QRS Dur : 138 ms QT Int : 384 ms P-R-T Axes : 000 062 256 degrees QTc Int : 507 ms Atrial fibrillation with rapid ventricular response Left bundle branch block Abnormal ECG When compared with ECG of 07-SEP-2019 07:22, Atrial fibrillation has replaced Sinus rhythm Vent. rate has increased BY 41 BPM Confirmed by Gopal aTn ([id number]) on 11/25/2019 9:21:50 AM Referred By: REFERRED SELF Confirmed By:Gopal Tan
--- NOTE | 2019-11-25 09:23 | Electrocardiogram Report ---
Test Reason : Blood Pressure : / mmHG Vent. Rate : 100 BPM Atrial Rate : 104 BPM P-R Int : 000 ms QRS Dur : 138 ms QT Int : 390 ms P-R-T Axes : 000 057 223 degrees QTc Int : 503 ms Atrial fibrillation Left bundle branch block Abnormal ECG When compared with ECG of 23-NOV-2019 14:59, No significant change was found Confirmed by Gopal Tan ([id number]) on 11/25/2019 9:23:40 AM Referred By: REFERRED SELF Confirmed By:Gopal Tan
--- NOTE | 2019-11-25 16:14 | Discharge Summary ---
Date of Service November 24, 2019 Admission HPI Per Admitting Provider Shawn Khan is a 74 year old male who presents to the ER with sudden onset chest pain. This was substernal and radiated across his upper chest. Started at 12-12:30pm while he was taking the laundry out of the dryer with minimal exertion. Severity 10/10 at worst. He took nitroglycerin x2 which didn't help. Associated shortness of breath, diaphoresis, palpitations. No nausea. No relief with rest. He was brought in by EMS and noted to be in atrial fibrillation with rapid ventricular rate and given diltiazem 10 mg IV on route. In the ER he received an additional IV diltiazem 10 mg IV with rate much better controlled around 100-110 and current chest pain much improved with severity 3/10. associated shortness of breath, felt hot, no nausea. He reports being given x2 aspirin from police who turned up fast and an additional x4 aspirin from EMS. This is on a background of recent bronchoscopy performed just 3 days ago. This was done due to evaluate an ongoing lung nodule on a background of non-small cell carcinoma with completed stereotactic radiation. He reports good recovery from this although has been coughing more with initial hemoptysis but none for the previous 24 hours. He also had a recent admission in September after having chest pain on lying down for his outpatient EGD/colonoscopy which had to be abandoned and the patient was sent to the ER. He follows with a [place] in the [place] in [place]. Prior cardiology consult in September reports two-vessel CABG 2013 with question MARC to LAD and RCA. He was discharged in September with a diagnosis of stable/unstable angina and isosorbide mononitrate was increased. He did not take his antihypertensives the morning of the endoscopy therefore appears to be consistent with hypertensive emergency. He is a liver transplant patient on tacrolimus. He denies any orthopnea, PND, claudication, presyncope or syncope. Given increased coughing although suspect related to his bronchoscopy, mild chest x-ray changes, and acute on chronic decrease in his lymphocyte count we will repeat his COVID-19 test prior to departing the ER. Principal Diagnosis Atrial fibrillation with RVR Discharge Exam Constitutional WD/WN, vitals as above Eyes PERRL, conjunctivae normal, anicteric sclerae ENMT external ear and nose normal, oropharynx normal Neck trachea midline, no thyromegaly Respiratory normal respiratory effort, lungs clear to auscultation Cardiovascular RRR, no murmur, no edema Gastrointestinal (Abdomen) normal bowel sounds, soft, nontender, no hepatosplenomegaly Musculoskeletal no cyanosis or clubbing, extremities motor strength 5/5 Skin no rashes, warm and dry Neurologic patellar DTR's 2+ bilat, sensation intact and PERRL, EOMI, accommodation nl, no face palsy, no dysarthria Psychiatric A+Ox3, euthymic affect Lymphatic no cervical or axillary lymphadenopathy Discharge Data Allergies Allergy/AdvReac Type Severity Reaction Status Date / Time bee venom protein (honey bee) Allergy Unknown swelling Verified 11/20/19 08:54 peas AdvReac Intermediate nausea and Verified 11/20/19 08:54 vomiting aspirin AdvReac Unknown INTERNAL Verified 11/20/19 08:54 BLEEDING, TOLD NOT TO TAKE LG DOSE Consultations 11/23/19 17:06 ED Decision to Admit Stat 11/24/19 01:32 Consult Gastroenterology Routine Hospital Course (1) Atrial fibrillation with rapid ventricular response: converted to sinus rhythm after Diltiazem IV and then increasing metoprolol to 25mg BID from 12.5mg will discharge home on Metoprolol 25mg hold on anticoagulation as there is ongoing concern for possible GI bleed that is slow, chronic follow up with solar sales at [facility] on 11/25 (2) Chest pain: no significant rise in troponin chest pain was likely due to afib with RVR (3) Anemia: iron low at 12, ferritin normal at 200 likely represents anemia of chronic disease as iron stores are more than sufficient Recently was supposed to have EGD and colonoscopy in September although case was cancelled due to chest pain and patient transferred to the ER Hb is stable at 8.9 today appreciate consult from Dr. Pettit, no plans for endoscopy offered patient CT abd/pelvis, he would rather wait as outpatient no signs of active bleeding (4) Acute hyponatremia: resolved, likely due to dehydration (5) Hypertension: BP stable metoprolol 25mg bid norvasc Continue ISMN 120mg PO QAM, lisinopril 10mg PO QAM (6) COPD (chronic obstructive pulmonary disease) with emphysema: Continue Inspiolto Respimat (7) BPH (benign prostatic hyperplasia): Continue tamsulosin (8) Hypomagnesemia: Mg sulphate 1g IV resolved (9) CAD (coronary artery disease), qawalangin coronary artery: Continue aspirin, metoprolol as above, lisinopril 10 mg p.o. every morning, atorvastatin 10 mg p.o. every morning. Total Time Total Time Spent Total Time Spent (In Minutes): 31 minutes Total Time Includes: Examination of the Patient, Discharge Planning, Medication Reconciliation and Communication With Other Providers (discussed with Dr. Pettit and Dr. Ricks) Discharge Plan Discharge Items Patient Disposition: Home - Self-Care Reason For Visit: [email or web address] RVR Discharge Diagnosis: Atrial fibrillation with rapid rates, converted to sinus rhythm Iron deficiency anemia Condition on Discharge: Good Goals: follow up with [facility] with [place] clinic on Monday continue with increased dose of metoprolol to maintain sinus rhythm Activity: Resume your previous activity Exercise/Sports: Gradually increase as tolerated Weightbearing: Full weightbearing Non-emergency contact: Primary Care Provider Call non-emergency contact if: you have any medication questions and your symptoms worsen Follow-up/Referrals: Imelda Lama PA-C [Primary Care Provider] - (one week) Diet: Heart Healthy Addtl Attending Provider Instructions: Medications: - METOPROLOL: increase the dose to 25mg twice a day, you were previously taking 12.5mg twice a day - PROTONIX: 40mg daily, this is for stomach protection for possible gastritis/ulcer Atrial fibrillation with rapid rate you converted to sinus rhythm with increased dose of metoprolol, will continue the metoprolol 25mg twice a day no need for anticoagulation at this time as there is concern for blood loss but nothing acute please discuss further with your solar sales with the [place] clinic on Monday Iron deficiency anemia checked ferritin level, it is 200 which is normal, continue to take your iron no evidence of acute blood loss, Hemoglobin is stable at 8.9 this morning dark stools are due to iron could get CT abdomen/pelvis with IV and oral contrast as outpatient could also consider getting EGD/colonoscopy but this was cancelled in September when you had some chest pain certainly taking a conservative approach would be appropriate given your heart history eating well, strength is intact, safe to discharge to home as both cardiology and gastroenterology would not offer any other work up Pending Studies at Discharge: No Stand-Alone Forms: [employer] Plan, Smoking Cessation Medications and DC Order Prescriptions: New pantoprazole 40 mg Tablet,Delayed Release (Dr/Ec) 40 mg PO QAM 30 Days Qty: 30 RF: 3 Continued Stiolto Respimat 2.5-2.5 mcg/actuation mist 2 puffs INH QAM RF: 0 hydrocodone-acetaminophen 7.5-325 mg Tablet 1 tab PO UD PRN (Reason: Pain) Qty: 0 RF: 0 docusate sodium 100 mg Tablet 100 mg PO BID PRN (Reason: Constipation) Qty: 0 RF: 0 tamsulosin [Flomax] 0.4 mg Capsule 0.8 mg PO HS Qty: 0 RF: 0 ipratropium bromide 0.03 % Coolidge,Non-Aerosol 2 spray INTRANASAL TID Qty: 0 RF: 0 atorvastatin [Lipitor] 10 mg Tablet 10 mg PO QAM Qty: 0 RF: 0 cyanocobalamin (vitamin B-12) 500 mcg Tablet 500 mcg PO DAILY Qty: 0 RF: 0 nitroglycerin 0.4 mg Tablet, Sublingual 0.4 mg sublingual TID PRN (Reason: Chest Pain) Qty: 0 RF: 0 cetirizine [Zyrtec] 10 mg Tablet 10 mg PO DAILY Qty: 0 RF: 0 albuterol sulfate 90 mcg/actuation Hfa Aerosol Inhaler 2 puff INHALATION Q6H PRN (Reason: copd) Qty: 0 RF: 0 amlodipine 2.5 mg tablet 2.5 mg PO QAM RF: 0 lisinopril 10 mg Tablet 10 mg PO QAM RF: 0 tacrolimus [Prograf] 1 mg Capsule 1 mg PO BID RF: 0 ipratropium-albuterol 0.5 mg-3 mg(2.5 mg base)/3 mL Solution For Nebulization 3 ml INHALATION QID PRN (Reason: Shortness Of Breath) RF: 0 aspirin 81 mg Tablet,Delayed Release (Dr/Ec) 81 mg PO QAM RF: 0 sodium bicarbonate 650 mg Tablet 1,300 mg PO BID RF: 0 gabapentin 100 mg Capsule 100 mg PO HS RF: 0 fluticasone propionate 50 mcg/actuation Coolidge,Suspension 1 spray INTRANASAL DAILY RF: 0 isosorbide mononitrate 60 mg Tablet Extended Release 24 Hr 120 mg PO QAM Qty: 60 RF: 5 Changed metoprolol tartrate 25 mg Tablet 25 mg PO BID 30 Days Qty: 60 RF: 0 Discharge Orders: Discharge Order (Routine); Ordered 11/24/19 Ordered By: Adam Lopez Admission Data Admit Date/Time: 11/23/19 18:39 Attending Provider: Adam Lopez Admit Provider: Skyler Castro Primary Care Provider: Imelda Lama Other Providers: Skyler Castro ; Nimesh Pettit Other Interventions: Discharge Summary Assessment (RN) Last Done: 11/24/19 14:31 Coding Level of Care Code D/C Day Management >30 mins Diagnoses Atrial fibrillation with rapid ventricular response I48.91 Chest pain R07.9 Anemia D64.9 Acute hyponatremia E87.1 Hypertension I10 COPD (chronic obstructive pulmonary disease) with emphysema J43.9 BPH (benign prostatic hyperplasia) N40.0 Hypomagnesemia E83.42 CAD (coronary artery disease), qawalangin coronary artery I25.10
== END 2019-11-24 15:04 | disposition home or self-care (01) | DRG 309 ==
LOC: ED 14:48 → 2S 18:39 → SUATTDRO 18:39 → 2S 21:26

== ENCOUNTER 2020-08-26 13:03 | Inpatient (IN) ==
[2020-08-26] MEDS ORDERED: SODIUM CHLORIDE 0.9% 500 ML IV SCH (13:45)
--- NOTE | 2020-08-26 14:18 | XRay Report ---
XR chest 1V portable HISTORY: weakness COMPARISON: Chest 08/18/2020. FINDINGS: The heart remains mildly enlarged. There are poststernotomy changes. No pneumothorax. Small bilateral pleural effusions. There is progressive interstitial/vascular thickening consistent with m ild congestive change. Bibasilar densities have also progressed and could represent a layering pleura l fluid or consolidation. Emphysema. The left lower lobe mass is obscured. Right apical mass is uncha nged. IMPRESSION: 1. Interval development of mild congestive change and small bilateral pleural effusions. 2. Bibasilar hazy airspace opacity likely represents the layering pleural effusions. Bibasilar consol idation/atelectasis could also a similar appearance. 3. The left lower lobe mass is obscured. The right apical mass is unchanged. ACT 112: Negative or not required by law. Electronically signed by: Scott Mosley M.D. 08/26/2020 2:17 PM
[2020-08-26 14:39] LABS: Hemoglobin 7.5 g/dL (14.0-18.0); Mean Corpuscular Hemoglobin 30.9 pg (25-34); Mean Corpuscular Hgb Conc 31.3 g/dL (32-36); Mean Corpuscular Volume 98.8 fL (80-100); RDW Coefficient of Variation 15.9 % (11.5-14.5); RDW Standard Deviation 56.8 fL (36.4-46.3); Red Blood Count 2.43 M/uL (4.7-6.1); White Blood Count 5.29 K/uL (4.8-10.8)
--- NOTE | 2020-08-26 14:54 | Emergency Department Note ---
Impression & Plan COPD (chronic obstructive pulmonary disease), Dysphagia, Weakness, Acute dehydration, Hypokalemia ED Provider Note NAME: JOSE GANNON AGE: 75 SEX: M : 1945 ARRIVES VIA: Ambulance INFORMANT: Patient, ED PROVIDER(S): Mika Sanchez DO CHIEF COMPLAINT: Weakness HPI: The patient is a 75-year-old male who presented to the emergency department for an evaluation of generalized weakness. The patient has a long history of tobacco use and COPD. He has been having progressive worsening ability to swallow over the course of the last few months but this is become much worse over the last week. The patient has had nothing to eat or drink over the last 5 days. He is not had his medications. At one point there was talk that the patient should be put on hospice however he is not currently on hospice and has very little in the way of home nursing. He does have a caregiver who presented to the emergency department with him today who is very knowledgeable about the patient's presentation and medical history. She does state that the patient has been worsening in his condition he is not able to ambulate as well as he normally can. And she is concerned that his decreased p.o. intake is leading to significant dehydration. ROS: See above HPI for pertinent positives & negatives. A total of 10 systems reviewed and were otherwise negative. PAST MEDICAL HISTORY: See Below PAST SURGICAL HISTORY: See Below FAMILY HISTORY: See Below SOCIAL HISTORY: See Below HOME MEDICATIONS: See Below ALLERGIES: See Below VITALS: See Below PHYSICAL EXAMINATION: GENERAL: The patient is frail and cachectic appearing. EYES: The conjunctivae are clear. The pupils are round and reactive. EARS, NOSE, MOUTH AND THROAT: The nose is without any evidence of any deformity. Mucous membranes are dry. NECK: The neck is nontender and supple. RESPIRATORY: Diminished breath sounds are noted throughout. Scattered rhonchi was noted. CARDIOVASCULAR: Regular rate and rhythm noted there no murmurs rubs or gallops normal S1 normal S2. GASTROINTESTINAL: The abdomen is soft. Abdomen is nontender. MUSCULOSKELETAL/EXTREMITIES: There is no evidence of gross deformity full range of motion is noted in the hips and shoulders. SKIN: There is pedal edema noted bilaterally. Skin is pale and dry. NEUROLOGIC: Patient is awake alert and oriented x3. MEDICAL DECISION MAKING: The patient is a 75-year-old male who presented to the emergency department with his caregiver and then his son for an evaluation of generalized weakness and difficulty swallowing. The patient has had ongoing symptoms which have been worsening of course over the last week. The patient symptoms are very severe. He is unable to take any of his outpatient medications. The patient was treated with IV fluids as well as IV potassium in the emergency department. He was reevaluated multiple times. He was also given a DuoNeb. The patient was somewhat improved on reevaluation but given his findings and comorbidities I [facility] have agreed to evaluate the patient in the emergency department for further management and disposition. Triage Nursing notes reviewed. Prior medical records reviewed Vital Signs: reviewed and remarkable for low blood pressure Differential diagnosis: Infection, dehydration, metabolic abnormality, hypo/hyperglycemia, electrolyte disturbance, anemia, hypoxia, cardiac sources, intracerebral event, toxicologic, neurologic, as well as other pathologies. ER treatment provided: See below Diagnostics interpreted by me: ECG: EKG was obtained in the emergency department. My interpretation is sinus rhythm at 83 bpm. A left bundle branch block pattern was noted. This was compared to a tracing from August 18, 2020. There are new T wave inversions noted. Cardiac Monitoring: An order was placed for continuous cardiac monitoring. The monitor shows a rate of 89 bpm with sinus rhythm. Laboratory studies: As stated above and show below. Imaging studies: See below Consultation(s): 1545: I discussed this case with Dr. Sánchez who [facility] They will evaluate the patient in the emergency department. Past Med/Surg History Medical History (Updated 08/26/20 @ 19:43 by Mika Sanchez DO) Abnormal ECG Acute hyponatremia Anemia chronic, baseline hgb 9-10 range per chart review Atrial fibrillation with rapid ventricular response Atypical chest pain Chest pain CKD (chronic kidney disease) stage 4, GFR 15-29 ml/min under surveillance, no dialysis Colon cancer per records/pt denies hx of colon cancer COPD (chronic obstructive pulmonary disease) COPD (chronic obstructive pulmonary disease) with emphysema Degenerative disc disease Dysphagia Hiatal hernia History of cirrhosis of liver Hypertension Hypotension, unspecified LBBB (left bundle branch block) chronic Lung cancer s/p multiple radiation tx, completed 06/2019--pt states on 02/17/2020 he currently is going through chemo treatments Lung nodule Myocardial Infarction Possible, evidence of old infarct on remote EKG Poor historian Squamous cell lung cancer Surgical History H/O liver transplant 1992 History of anesthesia reaction Urinary retention History of bronchoscopy recent--11/20/2019 navigational bronchoscopy: 02/27/19: Grade view 1, MAC#3, ETT 8.5 at [facility] History of cardiac cath 2013 with 2 stents placed History of cataract surgery RT/LEFT History of cholecystectomy History of colonoscopy History of coronary artery bypass graft CABGx2 (2013) History of esophagogastroduodenoscopy (EGD) History of heart artery stent X 2 2013 History of liver biopsy History of open reduction and internal fixation (ORIF) procedure LEFT HIP History of tonsillectomy History of tooth extraction Patella fracture REPAIRED Family History Mother , age 92 old age Family history of diabetes mellitus Brother , diabetes does not remember age Family history of diabetes mellitus Cancer Family history of esophageal cancer Father , CVA does not remember age No problems noted. Brother , age early 40s lymph nodes No problems noted. Sister , unknown No problems noted. Sister , COPD No problems noted. Sister No problems noted. Son No problems noted. Son No problems noted. Daughter No problems noted. Daughter No problems noted. Other No family history of adverse response to anesthesia Social History Smoking Status: Former smoker Tobacco Type: Cigarettes Age Started Using Tobacco: 13; Years Smoked: 40; Second Hand Exposure: No; Hx Alcohol Use: Yes Alcohol type: beer Alcohol Intake Frequency Comment: 1-2 be ers per week Hx Substance Use: No Preferred Language: Faroese Communication Ability: Effective Hearing Ability: Normal Human Factors Advisor Lead Required: No Beliefs That Will Affect Care: None marital status: Unknown Current Living Situation: Alone Current Living Situation Comment: lives alone, at [address] 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 [employer] Feels Safe at Home: Yes Childhood Exposure to Second-Hand Smoke: Yes caffeine: Yes (coffee twice a week ) during the past year weight has: decreased > 10 lbs Dental Care, Regularly: No Seatbelt Use: always Sunscreen Use: No Assistive Devices: None Allergies Allergies Allergy/AdvReac Type Severity Reaction Status Date / Time bee venom protein (honey bee) Allergy Intermediate swelling Verified 08/26/20 15:12 bupropion AdvReac Intermediate Palpitation Verified 08/26/20 15:12 s formoterol AdvReac Intermediate Anxiety Verified 08/26/20 15:12 peas AdvReac Intermediate nausea and Verified 08/26/20 15:12 vomiting tramadol AdvReac Intermediate cutaneous Verified 08/26/20 15:12 hypersensitivity aspirin AdvReac Unknown INTERNAL Verified 08/26/20 15:12 BLEEDING, TOLD NOT TO TAKE LG DOSE Home Meds Home Medications Medication Instructions Recorded Confirmed docusate sodium 100 mg PO QAM #0 06/16/13 08/26/20 tamsulosin [Flomax] 0.8 mg PO HS #0 cap 05/04/15 08/26/20 cyanocobalamin (vitamin B-12) 500 mcg PO QAM #0 tab 11/16/16 08/26/20 ipratropium bromide 1 spray INTRANASAL TID PRN #0 11/16/16 08/26/20 nitroglycerin 0.4 mg SUBLINGUAL TID PRN #0 11/16/16 08/26/20 albuterol sulfate 2 puff INHALATION Q6H PRN #0 10/19/17 08/26/20 tacrolimus [Prograf] 1 mg PO BID 09/07/18 08/26/20 aspirin 81 mg PO QAM 10/23/18 08/26/20 fluticasone propionate [Flonase 1 spray INTRANASAL BID 10/23/18 08/26/20 Allergy Relief] sodium bicarbonate 1,300 mg PO BID 10/23/18 08/26/20 pantoprazole [Protonix] 40 mg PO QAM 01/15/20 08/26/20 Gemcitabine Inj 1,100 mg IV WK 03/11/20 08/26/20 calcium carbonate-vitamin D3 1 tab PO BID 03/11/20 08/26/20 cholecalciferol (vitamin D3) 50 mcg PO DAILY 03/11/20 08/26/20 [Vitamin D3] food supplemt, lactose-reduced 1 ea PO BID 03/11/20 08/26/20 ketoconazole 1 applic TOPICAL DAILY 03/11/20 08/26/20 nicotine 1 patch TRANSDERMAL DAILY 03/11/20 08/26/20 olodaterol 2 inh INHALATION DAILY 03/11/20 08/26/20 pramipexole 0.25 mg PO HS 03/11/20 08/26/20 sulfamethoxazole-trimethoprim 1 tab PO 3XWK 03/11/20 08/26/20 [Bactrim DS] hydrocodone 7.5 mg-acetaminophen 15 ml PO Q6H PRN 06/16/20 08/26/20 325 mg/15 mL oral solution amlodipine 10 mg PO DAILY 07/15/20 08/26/20 azithromycin 250 mg PO 3XWK 07/15/20 08/26/20 coal tar 1 applic TOPICAL Q OTHER DAY 07/15/20 08/26/20 ferrous sulfate 220 mg PO BID 07/15/20 08/26/20 naloxone 0.4 mg INTRANASAL DIRECTED PRN 07/15/20 08/26/20 ondansetron HCl [Zofran] 8 mg PO Q8H PRN 07/15/20 08/26/20 atorvastatin 20 mg tablet 10 mg PO HS tab 07/21/20 08/26/20 cetirizine 10 mg tablet 5 mg PO DAILY PRN tab 07/21/20 08/26/20 dexamethasone 4 mg tablet 25 mg PO DIRECTED PRN tab 07/21/20 08/26/20 prednisone 20 mg tablet 40 mg PO DAILY tab 07/21/20 08/26/20 Previous Rx's Medication Instructions Recorded isosorbide mononitrate 120 mg PO QAM #60 tab 09/07/19 lisinopril 20 mg PO DAILY #30 tab 03/13/20 magnesium oxide 400 mg PO BID #60 tab 03/13/20 metoprolol tartrate 50 mg PO BID #60 tab 03/13/20 sodium chloride 3.5 % for 3 ml INHALATION BID #240 ml 04/24/20 nebulization lidocaine 1 patch TOPICAL DAILY #15 ea 05/28/20 furosemide 40 mg tablet 40 mg PO DAILY #30 tab 06/16/20 Results & Data (ED) Vital Signs Vital Signs - 24 hr 08/26/20 13:14 08/26/20 13:17 08/26/20 13:30 Temperature Temperature Source Pulse Rate 85 84 72 Pulse Rate from SpO2 Sensor 167 H Respiratory Rate 12 13 12 Respiratory Effort / Characteristics Respiratory Depth Blood Pressure 113/57 L 122/55 L Blood Pressure Mean 75 77 Pulse Oximetry Oxygen Delivery Method Nasal Cannula Nasal Cannula Nasal Cannula Oxygen Flow Rate 3 3 3 Sepsis Recent Fever Within 48 Hours Sepsis New/Unexplained Change in Mental Status Sepsis Action Taken by Nursing 08/26/20 13:31 08/26/20 13:39 08/26/20 14:00 Temperature 36.7 C Temperature Source Oral Pulse Rate 74 89 83 Pulse Rate from SpO2 Sensor Respiratory Rate 14 20 16 Respiratory Effort / Characteristics Respiratory Depth Normal Blood Pressure 114/53 L Blood Pressure Mean 73 Pulse Oximetry 98 Oxygen Delivery Method Nasal Cannula Nasal Cannula Nasal Cannula Oxygen Flow Rate 3 3 3 Sepsis Recent Fever Within 48 Hours No Sepsis New/Unexplained Change in Mental Status N/A Sepsis Action Taken by Nursing No Action Required 08/26/20 14:29 08/26/20 14:30 08/26/20 14:31 Temperature Temperature Source Pulse Rate 75 79 Pulse Rate from SpO2 Sensor 74 80 Respiratory Rate 12 Respiratory Effort / Characteristics Respiratory Depth Blood Pressure 113/52 L Blood Pressure Mean 72 Pulse Oximetry 98 96 98 Oxygen Delivery Method Nasal Cannula Nasal Cannula Nasal Cannula Oxygen Flow Rate 3 3 3 Sepsis Recent Fever Within 48 Hours Sepsis New/Unexplained Change in Mental Status Sepsis Action Taken by Nursing 08/26/20 15:00 08/26/20 15:01 08/26/20 15:30 Temperature Temperature Source Pulse Rate 88 83 86 Pulse Rate from SpO2 Sensor 84 81 85 Respiratory Rate 20 19 19 Respiratory Effort / Characteristics Respiratory Depth Blood Pressure 109/58 L 119/59 L Blood Pressure Mean 75 79 Pulse Oximetry 98 97 98 Oxygen Delivery Method Nasal Cannula Nasal Cannula Nasal Cannula Oxygen Flow Rate 3 3 3 Sepsis Recent Fever Within 48 Hours Sepsis New/Unexplained Change in Mental Status Sepsis Action Taken by Nursing 08/26/20 15:31 08/26/20 16:00 08/26/20 16:30 Temperature Temperature Source Pulse Rate 94 H 89 79 Pulse Rate from SpO2 Sensor 84 88 80 Respiratory Rate 18 25 H 16 Respiratory Effort / Characteristics Respiratory Depth Blood Pressure 103/65 113/54 L Blood Pressure Mean 77 73 Pulse Oximetry 96 97 98 Oxygen Delivery Method Nasal Cannula Nasal Cannula Oxygen Flow Rate 3 3 Sepsis Recent Fever Within 48 Hours Sepsis New/Unexplained Change in Mental Status Sepsis Action Taken by Nursing 08/26/20 16:31 08/26/20 17:00 08/26/20 17:01 Temperature Temperature Source Pulse Rate 71 105 H 81 Pulse Rate from SpO2 Sensor 69 85 81 Respiratory Rate 17 20 21 Respiratory Effort / Characteristics Respiratory Depth Blood Pressure 95/53 L Blood Pressure Mean 67 Pulse Oximetry 100 94 99 Oxygen Delivery Method Oxygen Flow Rate Sepsis Recent Fever Within 48 Hours Sepsis New/Unexplained Change in Mental Status Sepsis Action Taken by Nursing 08/26/20 17:30 08/26/20 17:31 08/26/20 18:35 Temperature Temperature Source Pulse Rate 69 68 Pulse Rate from SpO2 Sensor 69 67 Respiratory Rate 15 14 18 Respiratory Effort / Characteristics Spontaneous Respiratory Depth Blood Pressure 113/49 L Blood Pressure Mean 70 Pulse Oximetry 97 97 96 Oxygen Delivery Method Nasal Cannula Oxygen Flow Rate 3 Sepsis Recent Fever Within 48 Hours Sepsis New/Unexplained Change in Mental Status Sepsis Action Taken by [facility] Medications Current Medication List: was personally reviewed by me Laboratory Data Attestation: I reviewed the patient's lab results. Result diagrams: 08/26/20 13:49 08/26/20 13:49 Lab Results 08/26/20 08/26/20 08/26/20 Range/Units 13:49 13:49 16:25 WBC 5.29 (4.8-10.8) K/uL RBC 2.43 L (4.7-6.1) M/uL Hgb 7.5 L (14.0-18.0) g/dL Hct 24.0 L (42-52) % MCV 98.8 (80-100) fL MCH 30.9 (25-34) pg MCHC 31.3 L (32-36) g/dL RDW Std Deviation 56.8 H (36.4-46.3) fL RDW Coeff of Álvaro 15.9 H (11.5-14.5) % Plt Count 89 L (130-400) K/uL MPV 8.9 (7.4-10.4) fL Immature Gran % (Auto) 1.1 % Neut % (Auto) 83.2 % Lymph % (Auto) 7.2 % [place] % (Auto) 8.5 % Eos % (Auto) 0.0 % Baso % (Auto) 0.0 % Neut # (Auto) 4.40 (1.4-6.5) K/uL Lymph # (Auto) 0.38 L (1.2-3.4) K/uL [place] # (Auto) 0.45 (0.11-0.59) K/uL Eos # (Auto) 0.00 (0-0.5) K/uL Baso # (Auto) 0.00 (0-0.2) K/uL Immature Gran # (Auto) 0.06 H (0.00-0.02) K/uL Platelet Estimate Decreased L (Normal) Hypochromasia Present Sodium 146 H (136-145) mmol/L Potassium 2.9 L (3.5-5.1) mmol/L Chloride 105 (98-107) mmol/L Carbon Dioxide 35 H (21-32) mmol/L Anion Gap 6.0 (3-11) BUN 27 H (7-18) mg/dl Creatinine 1.37 (0.6-1.4) mg/dl Est Cr Clr Drug Dosing 26.9 ml/min Est GFR ( Amer) 57.7 ml/min Est GFR (Non-Af Amer) 49.7 ml/min BUN/Creatinine Ratio 19.6 (10-20) Glucose 81 (70-99) mg/dl Calcium 8.4 L (8.5-10.1) mg/dl Magnesium 2.0 (1.8-2.4) mg/dl Total Bilirubin 0.8 (0.2-1) mg/dl AST 22 (15-37) U/L ALT 20 (12-78) U/L Alkaline Phosphatase 83 (45-117) U/L Total Creatine Kinase 89 (39-308) U/L Troponin I 0.214 H* (0-0.045) ng/ml Total Protein 5.3 L (6.4-8.2) gm/dl Albumin 1.8 L (3.4-5.0) gm/dl Globulin 3.5 (2.5-4.0) gm/dl Albumin/Globulin Ratio 0.5 L (0.9-2) TSH 1.810 (0.300-4.500) uIu/ml COVID-19 Eval Order Covid19 at [facility] SARS-CoV-2 (PCR) (Negative) 08/26/20 Range/Units 16:25 WBC (4.8-10.8) K/uL RBC (4.7-6.1) M/uL Hgb (14.0-18.0) g/dL Hct (42-52) % MCV (80-100) fL MCH (25-34) pg MCHC (32-36) g/dL RDW Std Deviation (36.4-46.3) fL RDW Coeff of Álvaro (11.5-14.5) % Plt Count (130-400) K/uL MPV (7.4-10.4) fL Immature Gran % (Auto) % Neut % (Auto) % Lymph % (Auto) % [place] % (Auto) % Eos % (Auto) % Baso % (Auto) % Neut # (Auto) (1.4-6.5) K/uL Lymph # (Auto) (1.2-3.4) K/uL [place] # (Auto) (0.11-0.59) K/uL Eos # (Auto) (0-0.5) K/uL Baso # (Auto) (0-0.2) K/uL Immature Gran # (Auto) (0.00-0.02) K/uL Platelet Estimate (Normal) Hypochromasia Sodium (136-145) mmol/L Potassium (3.5-5.1) mmol/L Chloride (98-107) mmol/L Carbon Dioxide (21-32) mmol/L Anion Gap (3-11) BUN (7-18) mg/dl Creatinine (0.6-1.4) mg/dl Est Cr Clr Drug Dosing ml/min Est GFR ( Amer) ml/min Est GFR (Non-Af Amer) ml/min BUN/Creatinine Ratio (10-20) Glucose (70-99) mg/dl Calcium (8.5-10.1) mg/dl Magnesium (1.8-2.4) mg/dl Total Bilirubin (0.2-1) mg/dl AST (15-37) U/L ALT (12-78) U/L Alkaline Phosphatase (45-117) U/L Total Creatine Kinase (39-308) U/L Troponin I (0-0.045) ng/ml Total Protein (6.4-8.2) gm/dl Albumin (3.4-5.0) gm/dl Globulin (2.5-4.0) gm/dl Albumin/Globulin Ratio (0.9-2) TSH (0.300-4.500) uIu/ml COVID-19 Eval Order SARS-CoV-2 (PCR) NEGATIVE (Negative) Administered Medications Discontinued Medications Al Hydrox/Mg Hydrox/Simethicone (Aluminum/Magnesium Susp 30 Ml Udc) 30 ml PO N OW STA Stop: 08/26/20 15:31 Last Admin: 08/26/20 15:56 Dose: 30 ml Documented by: [id number] Albuterol (Albut/Ipratrop 3mg/0.5mg Neb 3 Ml Vial) 3 ml NEB NOW STA Stop: 08/26/20 18:19 Last Admin: 08/26/20 18:31 Dose: 3 ml Documented by: [id number] Sodium Chloride (Nss) 500 mls @ 999 mls/hr IV .Q31M ALEXYS Stop: 08/26/20 14:15 Last Infusion: 08/26/20 14:48 Dose: 0 mls/hr Documented by: [id number] Admin: 08/26/20 14:02 Dose: 999 mls/hr Documented by: [id number] Sodium Chloride (Nss 1000ml) 500 mls @ 999 mls/hr IV .Q31M ONE Stop: 08/26/20 16:00 Last Infusion: 08/26/20 17:38 Dose: 0 mls/hr Documented by: [id number] Admin: 08/26/20 15:53 Dose: 999 mls/hr Documented by: [id number] Potassium Chloride (K [place] / Wtr) 10 meq in 100 mls @ 100 mls/hr IV ONE ONE Stop: 08/26/20 16:29 Last Infusion: 08/26/20 17:38 Dose: 0 mls/hr Documented by: [id number] Admin: 08/26/20 15:52 Dose: 100 mls/hr Documented by: [id number] Imaging Data Radiologist's Impression: Chest X-Ray 08/26/20 13:40 XR chest 1V portable HISTORY: weakness COMPARISON: Chest 08/18/2020. FINDINGS: The heart remains mildly enlarged. There are poststernotomy changes. No pneumothorax. Small bilateral pleural effusions. There is progressive interstitial/vascular thickening consistent with mild congestive change. Bibasilar densities have also progressed and could represent a layering pleural fluid or consolidation. Emphysema. The left lower lobe mass is obscured. Right apical mass is unchanged. IMPRESSION: 1. Interval development of mild congestive change and small bilateral pleural effusions. 2. Bibasilar hazy airspace opacity likely represents the layering pleural effusions. Bibasilar consolidation/atelectasis could also a similar appearance. 3. The left lower lobe mass is obscured. The right apical mass is unchanged. ACT 112: Negative or not required by law. Electronically signed by: Scott Mosley M.D. 08/26/2020 2:17 PM Discharge Plan Visit Data Chief Complaint: Weakness Stated Complaint: difficulty swallowing ED Provider: Mika Sanchez Discharge Problem: COPD (chronic obstructive pulmonary disease), Dysphagia, Weakness, Acute dehydration, Hypokalemia Patient Disposition: Being Evaluated by Hospitalist Condition: Good Forms Stand Alone Forms: [facility], Virtual Emergency Department, Important Visit Information Prescriptions Prescriptions: No Action docusate sodium 100 mg Tablet 100 mg PO QAM Qty: 0 RF: 0 tamsulosin [Flomax] 0.4 mg Capsule 0.8 mg PO HS Qty: 0 RF: 0 ipratropium bromide 0.03 % [place],Non-Aerosol 1 spray INTRANASAL TID PRN (Reason: sinus congestion) Qty: 0 RF: 0 cyanocobalamin (vitamin B-12) 500 mcg Tablet 500 mcg PO QAM Qty: 0 RF: 0 nitroglycerin 0.4 mg Tablet, Sublingual 0.4 mg sublingual TID PRN (Reason: Chest Pain) Qty: 0 RF: 0 albuterol sulfate 90 mcg/actuation Hfa Aerosol Inhaler 2 puff INHALATION Q6H PRN (Reason: Shortness Of Breath) Qty: 0 RF: 0 Hyper-Clarke 3.5 % solution for nebulization 3 ml inhalation BID Qty: 240 RF: 3 hydrocodone-acetaminophen 7.5-325 mg/15 mL solution 15 ml PO Q6H PRN (Reason: Pain) RF: 0 furosemide [Lasix] 40 mg tablet 40 mg PO DAILY Qty: 30 RF: 2 Hold Instructions: Home Medication placed on hold at Doctor's office cetirizine 10 mg tablet 5 mg PO DAILY PRN (Reason: Congestion) RF: 0 prednisone 20 mg tablet 40 mg PO DAILY RF: 0 pantoprazole [Protonix] 40 mg tablet,delayed release (DR/EC) 40 mg PO QAM RF: 0 nicotine 14 mg/24 hr Patch 24 Hour 1 patch TRANSDERMAL DAILY RF: 0 calcium carbonate-vitamin D3 600 mg(1,500mg) -200 unit Tablet 1 tab PO BID RF: 0 sulfamethoxazole-trimethoprim [Bactrim DS] 800-160 mg Tablet 1 tab PO 3XWK RF: 0 pramipexole 0.25 mg Tablet 0.25 mg PO HS RF: 0 ketoconazole 2 % Cream 1 applic TOPICAL DAILY RF: 0 food supplemt, lactose-reduced Liquid 1 ea PO BID RF: 0 cholecalciferol (vitamin D3) [Vitamin D3] 25 mcg (1,000 unit) Tablet 50 mcg PO DAILY RF: 0 olodaterol 2.5 mcg/actuation Mist 2 inh INHALATION DAILY RF: 0 Gemcitabine Inj 1,100 mg IV WK RF: 0 lisinopril 20 mg Tablet 20 mg PO DAILY Qty: 30 RF: 0 Hold Instructions: Home Medication placed on hold at Doctor's office metoprolol tartrate 50 mg Tablet 50 mg PO BID Qty: 60 RF: 0 magnesium oxide 400 mg (241.3 mg magnesium) Tablet 400 mg PO BID Qty: 60 RF: 0 atorvastatin 20 mg tablet 10 mg PO HS RF: 0 lidocaine 4 % adhesive patch,medicated 1 patch topical DAILY Qty: 15 RF: 0 tacrolimus [Prograf] 1 mg Capsule 1 mg PO BID RF: 0 aspirin 81 mg Tablet,Delayed Release (Dr/Ec) 81 mg PO QAM RF: 0 sodium bicarbonate 650 mg Tablet 1,300 mg PO BID RF: 0 fluticasone propionate [Flonase Allergy Relief] 50 mcg/actuation [place],[employer] pension 1 spray INTRANASAL BID RF: 0 isosorbide mononitrate 60 mg Tablet Extended Release 24 Hr 120 mg PO QAM Qty: 60 RF: 5 azithromycin 250 mg Tablet 250 mg PO 3XWK RF: 0 naloxone 0.4 mg/mL Solution 0.4 mg intranasal DIRECTED PRN (Reason: OVERSEDATION) RF: 0 ondansetron HCl [Zofran] 8 mg Tablet 8 mg PO Q8H PRN (Reason: Nausea) RF: 0 amlodipine 10 mg Tablet 10 mg PO DAILY RF: 0 coal tar 0.5 % Shampoo 1 applic TOPICAL Q OTHER DAY RF: 0 ferrous sulfate 220 mg (44 mg iron)/5 mL Elixir 220 mg PO BID RF: 0 dexamethasone 4 mg tablet 25 mg PO DIRECTED PRN (Reason: PACLITAXEL INFUSIONS) RF: 0 Referrals Referrals: Ronnie Aguirre MD [Primary Care Provider] - Discharge Problem: COPD (chronic obstructive pulmonary disease) Qualifiers: COPD type: unspecified COPD Qualified Code(s): J44.9 - Chronic obstructive pulmonary disease, unspecified Dysphagia Qualifiers: Dysphagia type: unspecified Qualified Code(s): R13.10 - Dysphagia, unspecified
[2020-08-26 14:56] LABS: Albumin Level 1.8 gm/dl (3.4-5.0); BUN Creatinine Ratio 19.6 (10-20); Calcium 8.4 mg/dl (8.5-10.1); Creatinine Clr Calc Pharmacy 26.9 ml/min; Est GFR (African American) 57.7 ml/min; Est GFR (Non-African American) 49.7 ml/min; Potassium 2.9 mmol/L (3.5-5.1)
--- NOTE | 2020-08-26 14:59 | Electrocardiogram Report ---
Test Reason : Blood Pressure : / mmHG Vent. Rate : 083 BPM Atrial Rate : 083 BPM P-R Int : 140 ms QRS Dur : 152 ms QT Int : 456 ms P-R-T Axes : 053 -47 195 degrees QTc Int : 535 ms Sinus rhythm Left axis deviation Left bundle branch block Abnormal ECG When compared with ECG of 18-AUG-2020 00:30, QRS axis Shifted left T wave inversion now evident in Anterior leads Confirmed by Mika Briseno ([id number]) on 08/26/2020 2:58:45 PM Referred By: REFERRED SELF Confirmed By:Mika Briseno
[2020-08-26 15:02] LABS: Hypochromasia Present; Immature Granulocytes # (auto) 0.06 K/uL (0.00-0.02); Immature Granulocytes % (auto) 1.1 %; Lymphocytes # (auto) 0.38 K/uL (1.2-3.4); Lymphocytes % (auto) 7.2 %; Mean Platelet Volume 8.9 fL (7.4-10.4); Monocytes # (auto) 0.45 K/uL (0.11-0.59); Monocytes % (auto) 8.5 %; Neutrophils % (auto) 83.2 %; Platelet Count 89 K/uL (130-400); Platelet Estimate Decreased (Normal)
[2020-08-26 15:14] LABS: Albumin Globulin Ratio 0.5 (0.9-2); Bilirubin,Total 0.8 mg/dl (0.2-1); Globulin 3.5 gm/dl (2.5-4.0); Thyroid Stimulating Hormone 1.81 uIu/ml (0.300-4.500); Total Protein 5.3 gm/dl (6.4-8.2); Troponin I 0.214 ng/ml (0-0.045)
[2020-08-26] MEDS ORDERED: ALUMINUM/MAGNESIUM SUSP 30 ML UDC PO STA (15:30)
[2020-08-26] MEDS ORDERED: POTASSIUM CHLORIDE / WTR 10 MEQ/100 ML PLCT IV ONE (15:30)
[2020-08-26] MEDS ORDERED: SODIUM CHLORIDE 0.9% 1000ML 500 ML IV ONE (15:30)
--- NOTE | 2020-08-26 16:39 | History & Physical Report ---
Date of Service August 26, 2020 Assessment & Plan (1) Dysphagia: Unclear if the patient has obstruction secondary to stricture or of metastatic disease versus other causes Will admit patient to nonmonitored bed Will check CT of the soft tissues of the neck along with a chest Speech evaluation prior to diet release We will ask GI to evaluate for further recommendations, patient may be agreeable to EGD or other intervention if necessary (2) Dehydration: Patient is n.p.o. until swallow to be properly evaluated. I do see he was on furosemide 40 mg along with lisinopril 20 mg prior to admission I will make patient strict n.p.o. for now Hydrate with normal saline, follow renal function which actually seems to be somewhat better than his baseline. (3) Hypokalemia: IV K rider being infused now, will recheck and replete further as necessary. Check magnesium. (4) Anemia: Likely anemia of chronic disease, I do see patient was seen by Dr. Pierre in the past for this. As patient is dehydrated he is likely hemoconcentrated. Obtain informed consent from patient, will transfuse 1 unit packed red blood cells. Follow hemoglobin and transfuse further as needed. (5) Lung cancer: Patient is status post radiation and chemotherapy. Follows with Dr. Pierre as noted above. We will consult palliative care, will need coordination for eventual outpatient hospice. Both patient and son are in agreement to be DNR/DNI History of Present Illness Chief Complaint: Dysphagia Primary Care Provider: Ronnie Aguirre MD This is a 75-year-old male with past medical history of metastatic lung cancer, anemia that presents today complaining of dysphagia. Patient is a limited historian but patient son is at bedside is able to fill in details. Patient currently lives alone. They do have a caregiver that comes to the house, and family takes turns staying with the patient. The caregiver was concerned today as she had noted that the patient had not had any p.o. intake for the past 5 days but has been complaining of dysphagia for at least 2 weeks. Patient is somewhat limited on his history of this, and the son tells me that he thought he was eating small amounts up to about a week ago but was not clear after that. Patient was able to swallow some Maalox here without any difficulties. However, he does appear to be dehydrated and cachectic. The son did tell me that hospice had been involved previously through the [place]. However, the hospice company was not good with keeping communication and the family ultimately fired them from the patient's care. The son tells me they quijano ve a meeting with another hospice company later in the week. They do tell me that the patient is very limited in what he wants, at this point he is agreeable to further diagnostics of the swelling issue. He is also agreeable to a blood transfusion if necessary. Allergies Allergy/AdvReac Type Severity Reaction Status Date / Time bee venom protein (honey bee) Allergy Intermediate swelling Verified 08/26/20 15:12 bupropion AdvReac Intermediate Palpitation Verified 08/26/20 15:12 s formoterol AdvReac Intermediate Anxiety Verified 08/26/20 15:12 peas AdvReac Intermediate nausea and Verified 08/26/20 15:12 vomiting tramadol AdvReac Intermediate cutaneous Verified 08/26/20 15:12 hypersensitivity aspirin AdvReac Unknown INTERNAL Verified 08/26/20 15:12 BLEEDING, TOLD NOT TO TAKE LG DOSE Home Medications Medication Instructions Recorded Confirmed Type docusate sodium 100 mg PO QAM #0 06/16/13 08/26/20 History tamsulosin [Flomax] 0.8 mg PO HS #0 cap 05/04/15 08/26/20 History cyanocobalamin (vitamin B-12) 500 mcg PO QAM #0 tab 11/16/16 08/26/20 History ipratropium bromide 1 spray INTRANASAL TID PRN #0 11/16/16 08/26/20 History nitroglycerin 0.4 mg SUBLINGUAL TID PRN #0 11/16/16 08/26/20 History albuterol sulfate 2 puff INHALATION Q6H PRN #0 10/19/17 08/26/20 History tacrolimus [Prograf] 1 mg PO BID 09/07/18 08/26/20 History aspirin 81 mg PO QAM 10/23/18 08/26/20 History fluticasone propionate [Flonase 1 spray INTRANASAL BID 10/23/18 08/26/20 History Allergy Relief] sodium bicarbonate 1,300 mg PO BID 10/23/18 08/26/20 History isosorbide mononitrate 120 mg PO QAM #60 tab 09/07/19 08/26/20 Rx pantoprazole [Protonix] 40 mg PO QAM 01/15/20 08/26/20 History Gemcitabine Inj 1,100 mg IV WK 03/11/20 08/26/20 History calcium carbonate-vitamin D3 1 tab PO BID 03/11/20 08/26/20 History cholecalciferol (vitamin D3) 50 mcg PO DAILY 03/11/20 08/26/20 History [Vitamin D3] food supplemt, lactose-reduced 1 ea PO BID 03/11/20 08/26/20 History ketoconazole 1 applic TOPICAL DAILY 03/11/20 08/26/20 History nicotine 1 patch TRANSDERMAL DAILY 03/11/20 08/26/20 History olodaterol 2 inh INHALATION DAILY 03/11/20 08/26/20 History pramipexole 0.25 mg PO HS 03/11/20 08/26/20 History sulfamethoxazole-trimethoprim 1 tab PO 3XWK 03/11/20 08/26/20 History [Bactrim DS] lisinopril 20 mg PO DAILY #30 tab 03/13/20 08/26/20 Rx magnesium oxide 400 mg PO BID #60 tab 03/13/20 08/26/20 Rx metoprolol tartrate 50 mg PO BID #60 tab 03/13/20 08/26/20 Rx sodium chloride 3.5 % for 3 ml INHALATION BID #240 ml 04/24/20 08/26/20 Rx nebulization lidocaine 1 patch TOPICAL DAILY #15 ea 05/28/20 08/26/20 Rx furosemide 40 mg tablet 40 mg PO DAILY #30 tab 06/16/20 08/26/20 Rx hydrocodone 7.5 mg-acetaminophen 15 ml PO Q6H PRN 06/16/20 08/26/20 History 325 mg/15 mL oral solution amlodipine 10 mg PO DAILY 07/15/20 08/26/20 History azithromycin 250 mg PO 3XWK 07/15/20 08/26/20 History coal tar 1 applic TOPICAL Q OTHER DAY 07/15/20 08/26/20 History ferrous sulfate 220 mg PO BID 07/15/20 08/26/20 History naloxone 0.4 mg INTRANASAL DIRECTED PRN 07/15/20 08/26/20 History ondansetron HCl [Zofran] 8 mg PO Q8H PRN 07/15/20 08/26/20 History atorvastatin 20 mg tablet 10 mg PO HS tab 07/21/20 08/26/20 History cetirizine 10 mg tablet 5 mg PO DAILY PRN tab 07/21/20 08/26/20 History dexamethasone 4 mg tablet 25 mg PO DIRECTED PRN tab 07/21/20 08/26/20 History prednisone 20 mg tablet 40 mg PO DAILY tab 07/21/20 08/26/20 History Past Med/Surg History Medical History Abnormal ECG Acute hyponatremia Anemia chronic, baseline hgb 9-10 range per chart review Atrial fibrillation with rapid ventricular response Atypical chest pain Chest pain CKD (chronic kidney disease) stage 4, GFR 15-29 ml/min under surveillance, no dialysis Colon cancer per records/pt denies hx of colon cancer COPD (chronic obstructive pulmonary disease) COPD (chronic obstructive pulmonary disease) with emphysema Degenerative disc disease Dysphagia Hiatal hernia History of cirrhosis of liver Hypertension Hypotension, unspecified LBBB (left bundle branch block) chronic Lung cancer s/p multiple radiation tx, completed 06/2019--pt states on 02/17/2020 he currently is going through chemo treatments Lung nodule Myocardial Infarction Possible, evidence of old infarct on remote EKG Poor historian Squamous cell lung cancer Surgical History H/O liver transplant 1992 History of anesthesia reaction Urinary retention History of bronchoscopy recent--11/20/2019 navigational bronchoscopy: 02/27/19: Grade view 1, MAC#3, ETT 8.5 at [facility] History of cardiac cath 2013 with 2 stents placed History of cataract surgery RT/LEFT History of cholecystectomy History of colonoscopy History of coronary artery bypass graft CABGx2 (2013) History of esophagogastroduodenoscopy (EGD) History of heart artery stent X 2 2013 History of liver biopsy History of open reduction and internal fixation (ORIF) procedure LEFT HIP History of tonsillectomy History of tooth extraction Patella fracture REPAIRED Family History Mother , age 92 old age Family history of diabetes mellitus Brother , diabetes does not remember age Family history of diabetes mellitus Cancer Family history of esophageal cancer Father , CVA does not remember age No problems noted. Brother , age early 40s lymph nodes No problems noted. Sister , unknown No problems noted. Sister , COPD No problems noted. Sister No problems noted. Son No problems noted. Son No problems noted. Daughter No problems noted. Daughter No problems noted. Other No family history of adverse response to anesthesia Social History Smoking Status: Former smoker Tobacco Type: Cigarettes Age Started Using Tobacco: 13; Years Smoked: 40; Second Hand Exposure: No; Hx Alcohol Use: Yes Alcohol type: beer Alcohol Intake Frequency Comment: 1-2 beers per week Hx Substance Use: No Preferred Language: [place] Communication Ability: Effective Hearing Ability: Normal Prosthetic Technician Required: No Beliefs That Will Affect Care: None marital status: Unknown Current Living Situation: Alone Current Living Situation Comment: lives alone, at [place] current occupational status: retired 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, 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 [employer] Feels Safe at Home: Yes Childhood Exposure to Second-Hand Smoke: Yes caffeine: Yes (coffee twice a week ) during the past year weight has: decreased > 10 lbs Dental Care, Regularly: No Seatbelt Use: always Sunscreen Use: No Assistive Devices: None Review of Systems Constitutional: + anorexia and + weight loss; no fever, no chills, no weakness and no weight gain Eyes: as per Subjective / HPI Respiratory: no cough, no chest congestion, no dyspnea and no dyspnea on exertion Cardiovascular: no chest pain, no orthopnea, no palpitations, no lightheadedness and no edema Gastrointestinal: + nausea and + dysphagia; no abdominal pain, no vomiting, no constipation and no diarrhea/loose stools Musculoskeletal: + muscle weakness; no back pain, no neck pain, no joint pain, no stiffness and no myalgia Integumentary: no rash Neurologic: no gait abnormality, no unsteadiness, no falls and no generalized weakness Physical Exam Constitutional: + cachectic, + frail appearing and cooperative; no acute distress ENMT: Mouth: + dry oral mucous membranes Neck: trachea midline, no thyromegaly Respiratory: normal respiratory effort Auscultation: + diminished lung sounds; no crackles, no rales, no rhonchi and no wheezes Cardiovascular: Rate/Rhythm: regular rate and regular rhythm Heart Sounds: normal S1 and normal S2; no murmur Gastrointestinal (Abdomen): Inspection/Auscultation: abdomen normal to inspection Percussion/Palpation: abdomen soft; abdomen nontender, no guarding, abdomen not rigid and no hepatosplenomegaly Skin: no rashes, warm and dry Results & Data Results & Data ([facility]) Vital Signs (Past 12 Hours) Vital Signs Temp Pulse Resp Pulse Ox 08/26/20 14:29 98 08/26/20 13:39 36.7 C 89 20 98 PG Care Time/CCT Total # of Minutes Spent Total Time Spent with Patient: Total time spent is greater than 50% in coordination of care (as documented) at patient's floor/unit and/or counseling patient: Coding Level of Care Code 21516 OBS Care - Level 3 Diagnoses Dysphagia R13.10 Dehydration E86.0 Hypokalemia E87.6 Anemia D64.9 Lung cancer C34.90
[2020-08-26] MEDS ORDERED: ALBUT/IPRATROP 3MG/0.5MG NEB 3 ML VIAL NEB STA (18:18)
[2020-08-26] MEDS ORDERED: ALBUTEROL HFA 8 GM INHALER INH PRN (20:55)
[2020-08-26] MEDS ORDERED: SODIUM CHLORIDE 0.9% 250 ML IV PRN (20:55)
[2020-08-26] MEDS ORDERED: ONDANSETRON INJ 2 MG/ML 2 ML VIAL IV PRN (20:55)
[2020-08-26] MEDS ORDERED: HEPARIN SOD 5,000 UNIT/0.5 ML VIAL SQ SCH (21:00)
[2020-08-26] MEDS ORDERED: SODIUM CHLORIDE 0.9% 1000ML 1,000 ML IV SCH (22:00)
[2020-08-26] MEDS: FLUTICASONE PROPIONATE NA SPR 16 GM BTL SCH (22:16)
[2020-08-27] MEDS ORDERED: FUROSEMIDE 40 MG/4 ML VIAL IV ONE (02:52)
[2020-08-27] MEDS ORDERED: FUROSEMIDE 20 MG in SYRINGE 0 ML IV ONE ×2 (03:04→03:27)
[2020-08-27] MEDS: ALBUMIN 25% 12.5 GM/50 ML VIAL IV SCH ×2 (03:14→03:58)
[2020-08-27] MEDS ORDERED: POTASSIUM CHLORIDE CRTAB 20 MEQ TABCR PO STA (03:28)
--- NOTE | 2020-08-27 03:55 | Communication Note ---
Date of Service: August 27, 2020 Notified by nursing around 2:45AM during [facility] downtime that patient's SPO2 had dropped to 79% while on 4LNC. Patient had been receiving blood at this time and prior had been getting normal saline at a rate of 100ml/hr. I immediately examined the patient who stated he was having difficulty breathing and felt as though he could not catch his breath. Upon auscultation patient appeared to sound significantly fluid overloaded with crackles and course breath sounds in both lungs b/l, worse at the bases. PE: Lungs - Obvious respiratory distress while on 4L NC, crackles at bases and course breath sounds throughout. Plan: -Blood was held prior to my arrival to the room, patient received slightly under 1/2 unit. -CXR with fluid overload appearance -Patient given a total of 40mg IV lasix with initial diuresis of 500mL and improved breathing -Respiratory therapy called and patient placed on Bipap as well, will attempt to wean as his fluid overload status improves -25mg IV albumin given -Will also give 40meq KCl PO in addition to 20meq KCl IV (watching carefully for any further fluid overload) as he was 2.9 earlier and will likely be lower more so now after lasix -Repeat BMP ordered for later this morning, suspect patient will require further repletion. Resident Activity Tracking Resident Involvement: Resident Care Provided and Quality Control Lead Coverage Note Care Provided: Adult Hospital Medicine
[2020-08-27] MEDS: POTASSIUM CHLORIDE / WTR 10 MEQ/100 ML PLCT IV SCH ×5 (03:58→13:27)
[2020-08-27 06:46] LABS: Appearance Urine Clear (Clear); Bacteria Urine Automated Negative (Negative); Bilirubin Urine Negative (Negative); Blood Urine Trace (Negative); Color Urine Yellow; Glucose Urine UA Negative (Negative); Ketones Urine Trace (Negative); Leukocyte Esterase Urine Negative (Negative); Nitrite Urine Negative (Negative); RBC Urine Automated 0-4 /hpf (0-4); Specific Gravity Urine 1.009 (1.000-1.030); Urobilinogen Urine Negative (Negative); pH Urine 7.5 (4.5-7.5)
[2020-08-27 06:48] LABS: Protein Urine 2+ (Negative)
[2020-08-27] MEDS: FLUTICASONE PROPIONATE NA SPR 16 GM BTL SCH ×2 (07:31→21:20)
[2020-08-27 07:36] LABS: Hematocrit (blood only) 26.6 % (42-52); Hemoglobin 8.1 g/dL (14.0-18.0); Mean Corpuscular Hemoglobin 30.1 pg (25-34); Mean Corpuscular Hgb Conc 30.5 g/dL (32-36); Mean Corpuscular Volume 98.9 fL (80-100); RDW Coefficient of Variation 17.1 % (11.5-14.5); Red Blood Count 2.69 M/uL (4.7-6.1)
--- NOTE | 2020-08-27 07:47 | XRay Report ---
SINGLE VIEW CHEST CLINICAL HISTORY: Fluid overload. FINDINGS: An AP, portable, upright chest radiograph is compared to chest x-ray and chest CT dated 08/02. The examination is degraded by portable technique and apical lordotic positioning. The patien t is status post midline sternotomy. The heart is enlarged noting atherosclerotic calcification of th e thoracic aorta. There is pulmonary vascular congestion. Emphysema and chronic interstitial thickeni ng is similar to previous. The patient's known right upper lobe mass lesion is not well evaluated. Th ere are layering pleural effusions with bibasilar consolidation. There is also airspace consolidation in the right upper lobe. These findings have increased from yesterday. No pneumothorax is seen. The skeletal structures are osteopenic. The bony thorax is grossly intact. IMPRESSION: 1. Cardiomegaly and emphysema with mild pulmonary vascular congestion. 2. There are enlarging bilateral pleural effusions. Bibasilar consolidation and right upper lobe cons olidation have increased from yesterday. This could represent pulmonary edema and/or multifocal pneum onia. Clinical correlation will be required and radiographic follow-up to resolution is recommended. 3. The patient's known right upper lobe mass lesion is not well assessed. ACT 112: Negative or not required by law. Electronically signed by: Rome Armendariz M.D. 08/27/2020 7:45 AM
[2020-08-27 07:53] LABS: Mean Platelet Volume 9.3 fL (7.4-10.4); Platelet Count 93 K/uL (130-400)
[2020-08-27 07:59] LABS: Basophils # (auto) 0.01 K/uL (0-0.2); Basophils % (auto) 0.2 %; Immature Granulocytes # (auto) 0.08 K/uL (0.00-0.02); Immature Granulocytes % (auto) 1.2 %; Lymphocytes # (auto) 0.58 K/uL (1.2-3.4); Lymphocytes % (auto) 8.8 %; Monocytes # (auto) 0.51 K/uL (0.11-0.59); Monocytes % (auto) 7.7 %; Neutrophils # (auto) 5.42 K/uL (1.4-6.5); Neutrophils % (auto) 82.1 %
[2020-08-27 08:05] LABS: Calcium 8.5 mg/dl (8.5-10.1); Creatinine Clr Calc Pharmacy 36.4 ml/min; Est GFR (African American) 67.7 ml/min; Est GFR (Non-African American) 58.4 ml/min; Potassium 3.4 mmol/L (3.5-5.1)
[2020-08-27] MEDS ORDERED: MoRPHine SULFATE 2 MG/ML CARP IV STA (08:09)
--- NOTE | 2020-08-27 08:26 | CT Scan Report ---
CT chest diagnostic wo con CLINICAL HISTORY: dysphagia COMPARISON STUDY: 06/08/2020 CT DOSE: 410.01 mGy.cm TECHNIQUE: CT of the thorax was performed from the thoracic inlet to the lung bases. Images are revi ewed in the axial, sagittal, and coronal planes. IV contrast was not administered for this examinatio n. A dose lowering technique was utilized adhering to the principles of ALARA. FINDINGS: Thyroid: Imaged portions of the thyroid gland are normal in appearance. Thoracic aorta: There is mild ectasia of the ascending thoracic aorta which measures 39 mm. Heart: There are coronary artery calcifications. There is no significant pericardial effusion. Lungs and pleural spaces: There are [id number] bilateral pleural effusions. There is pulmonary emphysema. There is an enlarging 42 mm spiculated right upper lobe opacity. In addition there are ri ght upper lobe airspace opacities, likely infectious/inflammatory. The previously identified left low er lobe pulmonary mass is difficult to measure as it is now surrounded by an area of parenchymal cons olidation with air bronchograms. There is bronchial wall thickening. There are clustered left lower l obe nodules, with an infectious/inflammatory etiology favored over neoplasm. Mediastinum: There is a persistent right mediastinal mass/adenopathy. Sylvia: There is persistent right hilar mass/adenopathy Axilla: There is no evidence of pathologic axillary lymphadenopathy Upper abdomen: There is a hyperdense right renal cyst Skeletal structures: There are T3, T4, T6, T7, T9, and T10 vertebral body compression fractures. The T9 and T10 compression fractures appear new when compared the prior study IMPRESSION: 1. Enlarging right upper lobe 42 mm spiculated mass with associated mediastinal and hilar adenopathy 2. Persistent left lower lobe pulmonary mass which is difficult to define due to surrounding lung con solidation with air bronchograms 3. Interval development of bilateral pleural effusions 4. Interval development of clustered left lower lobe nodularity likely infectious/inflammatory 5. Right upper lobe airspace opacities, likely representing a pneumonia. 6. Multiple thoracic vertebral body compression fractures with new T9 and T10 compression. ACT 112: Negative or not required by law. Electronically signed by: Mike Timmons M.D. 08/27/2020 8:25 AM
--- NOTE | 2020-08-27 08:37 | XRay Report ---
XR chest 1V portable HISTORY: distress, hypoxia COMPARISON: Chest 08/27/2020. FINDINGS: No pneumothorax. Small bilateral pleural effusions persist. Right lung and left lower lobe airspace opacities are similar to the prior study. The heart remains normal in size. There are postst ernotomy changes. Emphysema. The patient's known right upper lobe mass and left lower lobe mass are n ot well visualized. IMPRESSION: No change in the bilateral airspace opacities and small bilateral pleural effusions. ACT 112: Negative or not required by law. Electronically signed by: Scott Mosley M.D. 08/27/2020 8:36 AM
--- NOTE | 2020-08-27 08:39 | Hospitalist Progress Note ---
Date of Service August 27, 2020 Assessment & Plan (1) Acute respiratory failure with hypoxia: oxygen requirements went from 4L NC to BIPAP over night he is now BIPAP dependent, tried to place on 15L oxymask but saturations dropped to 70's and HR up, even went into afib RVR at one point CXR with pulmonary edema but appears more dense on right side tried Lasix 40mg IV over night and again this morning, made some urine but no improvement in breathing suspect he is aspirating with his recent worsening dysphagia, likely has a lot of secretions in right main airway discussed with patient, he is willing to stay on BIPAP but is really uncomfortable, says his mouth is dry and just wishes he could drink met with son and daughter at the bedside in the afternoon, they understand poor short term prognosis want to see if we can get him off BIPAP to go home but understand if we need to make inpatient hospice use Morphine 1mg IV q2 PRN for dyspnea, worked fairly well (2) Dysphagia: Unclear if the patient has obstruction secondary to stricture or of m etastatic disease versus other causes either way, no work up planned as he has respiratory distress and hypoxia suspect that the dysphagia was causing aspiration making respiratory status worse (3) Dehydration: was hydrated initially and given unit of PRBC went into flash pulmonary edema stopped fluids and gave Lasix to try to make breathing more comfortable (4) COPD (chronic obstructive pulmonary disease): no wheezing, acute hypoxia combination of pulmonary edema and aspiration (5) Hypokalemia: IV K rider being infused now, will recheck and replete further as necessary. Check magnesium. (6) Anemia: Likely anemia of chronic disease (7) Lung cancer: Patient is status post radiation and chemotherapy. Follows with Dr. Pierre as noted above. palliative care involved, will transition to hospice, either inpatient or at home Admission and Anticipated Discharge Date Admission Date: August 26, 2020 Subjective patient admitted for dysphagia, at home with hospice for lung cancer, s/p radiation and chemotherapy had not been eating for several days went into respiratory distress around 2-3 AM, was getting blood transfusion at the time CXR with more pulmonary edema compared to admission, more on the right side he was give Lasix 40mg IV, put out 500mL immediately but he remains on BIPAP this morning CXR looks a little improved on my read, but still working hard to breathe and he is saturating 90% on BIPAP he had some relief with Morphine 1mg IV so will continue that reviewed labs, K is 3.4, his Cr is 1.2, based on reviewed of prior labs, he was always in the 2's for Cr, so might be volume overloaded his EF in 2019 was normal and no severe valve disease at that time d/w RN, will give Lasix 40mg IV, give KCl 30mEq IV since he cannot take PO can use Morphine 1mg q2 PRN Review of Systems Review of Systems: All systems reviewed & are unremarkable except as noted in Subjective Constitutional: + weakness and + weight loss (over past few weeks); no fever and no fatigue Respiratory: + chest congestion, + dyspnea and + dyspnea on exertion; no cough Cardiovascular: no chest pain, no palpitations, no syncope and no edema Gastrointestinal: + dysphagia; no abdominal pain, no nausea, no vomiting, no constipation and no diarrhea/loose stools Physical Exam Constitutional: well developed, + acute distress, + ill appearing, + cachectic and + frail appearing Neck: trachea midline, no thyromegaly Respiratory: + respiratory distress, + labored breathing, + uses accessory muscles, + cough and + tachypneic Auscultation: + rhonchi (bilaterally) Cardiovascular: RRR, no murmur, no edema Gastrointestinal (Abdomen): normal bowel sounds, soft, nontender, no hepatosplenomegaly Musculoskeletal: Head/Neck/Chest: normocephalic, head atraumatic and neck supple Extremities: + abnormal strength and + muscle atrophy; no cyanosis, no clubbing and no petechiae Skin: no rashes, warm and dry Neurologic: CN's II-XI intact bilaterally, deep tendon reflexes 2+ bilaterally, moves all extremities and awake; no focal motor deficits Psychiatric: Orientation: alert and oriented x 3 Results & Data Results & Data ([facility]) Vital Signs (Past 12 Hours) Vital Signs Temp Pulse Pulse Resp BP BP BP 08/27/20 08:00 91 H 28 H 08/27/20 07:00 36.2 C L 79 20 108/59 L 08/27/20 05:07 82 08/27/20 05:06 74 08/27/20 03:15 94 H 21 08/27/20 02:29 36.6 C 86 20 112/52 L 08/27/20 01:59 36.3 C L 80 20 110/61 08/27/20 01:44 36.7 C 72 20 101/57 L 08/27/20 01:28 36.7 C 74 20 113/57 L 08/26/20 23:00 36.9 C 83 20 119/61 08/26/20 22:24 36.8 C 77 20 119/55 L Pulse Ox 08/27/20 08:00 94 08/27/20 07:00 98 08/27/20 05:07 08/27/20 05:06 08/27/20 03:15 96 08/27/20 02:29 96 08/27/20 01:59 93 08/27/20 01:44 93 08/27/20 01:28 94 08/26/20 23:00 95 08/26/20 22:24 93 Laboratory Results Laboratory Results - last 24 hr 08/26/20 08/26/20 08/26/20 13:49 13:49 16:25 WBC 5.29 RBC 2.43 L Hgb 7.5 L Hct 24.0 L MCV 98.8 MCH 30.9 MCHC 31.3 L RDW Std Deviation 56.8 H RDW Coeff of Álvaro 15.9 H Plt Count 89 L MPV 8.9 Immature Gran % (Auto) 1.1 Neut % (Auto) 83.2 Lymph % (Auto) 7.2 [place] % (Auto) 8.5 Eos % (Auto) 0.0 Baso % (Auto) 0.0 Neut # (Auto) 4.40 Lymph # (Auto) 0.38 L [place] # (Auto) 0.45 Eos # (Auto) 0.00 Baso # (Auto) 0.00 Immature Gran # (Auto) 0.06 H Platelet Estimate Decreased L Hypochromasia Present Sodium 146 H Potassium 2.9 L Chloride 105 Carbon Dioxide 35 H Anion Gap 6.0 BUN 27 H Creatinine 1.37 Est Cr Clr Drug Dosing 26.9 Est GFR ( Amer) 57.7 Est GFR (Non-Af Amer) 49.7 BUN/Creatinine Ratio 19.6 Glucose 81 Calcium 8.4 L Magnesium 2.0 Total Bilirubin 0.8 AST 22 ALT 20 Alkaline Phosphatase 83 Total Creatine Kinase 89 Troponin I 0.214 H* Total Protein 5.3 L Albumin 1.8 L Globulin 3.5 Albumin/Globulin Ratio 0.5 L TSH 1.810 Urine Color Urine Appearance Urine pH Ur Specific Sidney Urine Protein Urine Glucose (UA) Urine Ketones Urine Blood Urine Nitrite Urine Bilirubin Urine Urobilinogen Ur Leukocyte Esterase Urine WBC (Auto) Urine RBC (Auto) U Hyaline Cast (Auto) U Epithel Cells (Auto) Urine Bacteria (Auto) COVID-19 Eval Order Covid19 at [facility] SARS-CoV-2 (PCR) Blood Type Antibody Screen Crossmatch 08/26/20 08/26/20 08/27/20 16:25 21:12 06:15 WBC RBC Hgb Hct MCV MCH MCHC RDW Std Deviation RDW Coeff of Álvaro Plt Count MPV Immature Gran % (Auto) Neut % (Auto) Lymph % (Auto) [place] % (Auto) Eos % (Auto) Baso % (Auto) Neut # (Auto) Lymph # (Auto) [place] # (Auto) Eos # (Auto) Baso # (Auto) Immature Gran # (Auto) Platelet Estimate Hypochromasia Sodium Potassium Chloride Carbon Dioxide Anion Gap BUN Creatinine Est Cr Clr Drug Dosing Est GFR ( Amer) Est GFR (Non-Af Amer) BUN/Creatinine Ratio Glucose Calcium Magnesium Total Bilirubin AST ALT Alkaline Phosphatase Total Creatine Kinase Troponin I Total Protein Albumin Globulin Albumin/Globulin Ratio TSH Urine Color Yellow Urine Appearance Clear Urine pH 7.5 Ur Specific [place] 1.009 Urine Protein 2+ H Urine Glucose (UA) Negative Urine Ketones Trace H Urine Blood Trace H Urine Nitrite Negative Urine Bilirubin Negative Urine Urobilinogen Negative Ur Leukocyte Esterase Negative Urine WBC (Auto) 5-10 H Urine RBC (Auto) 0-4 U Hyaline Cast (Auto) 1-5 U Epithel Cells (Auto) 10-20 H Urine Bacteria (Auto) Negative COVID-19 Eval Order SARS-CoV-2 (PCR) NEGATIVE Blood Type O Positive Antibody Screen NEGATIVE Crossmatch See Detail 08/27/20 08/27/20 07:07 07:07 WBC 6.60 RBC 2.69 L Hgb 8.1 L Hct 26.6 L MCV 98.9 MCH 30.1 MCHC 30.5 L RDW Std Deviation 61.0 H RDW Coeff of Álvaro 17.1 H Plt Count 93 L MPV 9.3 Immature Gran % (Auto) 1.2 Neut % (Auto) 82.1 Lymph % (Auto) 8.8 [place] % (Auto) 7.7 Eos % (Auto) 0.0 Baso % (Auto) 0.2 Neut # (Auto) 5.42 Lymph # (Auto) 0.58 L [place] # (Auto) 0.51 Eos # (Auto) 0.00 Baso # (Auto) 0.01 Immature Gran # (Auto) 0.08 H Platelet Estimate Hypochromasia Sodium 144 Potassium 3.4 L D Chloride 107 Carbon Dioxide 32 Anion Gap 5.0 BUN 23 H Creatinine 1.20 Est Cr Clr Drug Dosing 36.4 Est GFR ( Amer) 67.7 Est GFR (Non-Af Amer) 58.4 BUN/Creatinine Ratio 19.0 Glucose 95 Calcium 8.5 Magnesium 2.0 Total Bilirubin AST ALT Alkaline Phosphatase Total Creatine Kinase Troponin I Total Protein Albumin Globulin Albumin/Globulin Ratio TSH Urine Color Urine Appearance Urine pH Ur Specific [place] Urine Protein Urine Glucose (UA) Urine Ketones Urine Blood Urine Nitrite Urine Bilirubin Urine Urobilinogen Ur Leukocyte Esterase Urine WBC (Auto) Urine RBC (Auto) U Hyaline Cast (Auto) U Epithel Cells (Auto) Urine Bacteria (Auto) COVID-19 Eval Order SARS-CoV-2 (PCR) Blood Type Antibody Screen Crossmatch Medications Administered Current Inpatient Medications Albuterol (Albuterol Hfa 8 Gm Inhaler) 2 puffs INH Q6H PRN PRN Reason: Shortness Of Breath Stop: 09/25/20 20:54 Fluticasone Propionate (Fluticasone Propionate Na Spr 16 Gm Btl) 1 sprays NA BID ALEXYS Stop: 09/25/20 20:59 Last Admin: 08/27/20 07:31 Dose: Not Given Documented by: Heparin Sodium (Porcine) (Heparin Sod 5,000 Unit/0.5 Ml Vial) 5,000 units SQ Q12 ALEXYS Stop: 09/25/20 20:59 Last Admin: 08/26/20 22:17 Dose: Not Given Documented by: Furosemide 40 mg/ Syringe 4 mls @ 4 mls/min IV ONE ONE Stop: 08/27/20 09:01 Potassium Chloride (K Landon / Wtr) 10 meq in 100 mls @ 100 mls/hr IV Q1H ALEXYS Stop: 08/27/20 11:59 Morphine Sulfate (Morphine Sulfate 2 Mg/Ml Carp) 1 mg IV Q2H PRN PRN Reason: Dyspnea Stop: 09/10/20 08:35 Ondansetron HCl (Ondansetron Inj 2 Mg/Ml 2 Ml Vial) 4 mg IV Q6H PRN PRN Reason: Nausea Stop: 09/25/20 20:54 Potassium Chloride (Potassium Chloride 20 Meq/15 Ml Udc) 40 meq PO 0900 ONE Stop: 08/27/20 09:01 Last Admin: 08/27/20 07:31 Dose: Not Given Documented by: PG Care Time/CCT Total # of Minutes Spent Total Time Spent with Patient: Total time spent is greater than 50% in coordination of care (as documented) at patient's floor/unit and/or counseling patient: Coding Level of Care Code 62391 Subseq Obs Care Lvl 3 Diagnoses Acute respiratory failure with hypoxia J96.01 Dysphagia R13.10 Dehydration E86.0 COPD (chronic obstructive pulmonary disease) J44.9 COPD type: unspecified COPD Hypokalemia E87.6 Anemia D64.9 Lung cancer C34.90 (1) COPD (chronic obstructive pulmonary disease) COPD type: unspecified COPD Qualified Code(s): J44.9 - Chronic obstructive pulmonary disease, unspecified
--- NOTE | 2020-08-27 08:56 | CT Scan Report ---
CT SCAN OF THE NECK WITHOUT IV CONTRAST CLINICAL HISTORY: Dysphagia. COMPARISON STUDY: No priors. TECHNIQUE: Unenhanced CT scan of the soft tissues of the neck was performed from the skull base to th e upper chest. Images are reviewed in the axial, sagittal, and coronal planes. IV contrast was not a dministered as per the referring clinician. Note that the examination was performed in significantly suboptimal fashion without IV contrast. A dose lowering technique was utilized adhering to the [facility]. FINDINGS: Pharynx: There is mild diffuse edema of the pharyngeal and retropharyngeal soft tissues. The airway i s widely patent. There is no evidence of mass lesion on this unenhanced examination. The vocal cords are symmetric. No radiodense foreign body is identified. The epiglottis is normal. Soft tissues: There is diffuse body wall edema. There is atherosclerotic calcification of the carotid bulbs. Lymphadenopathy: No cervical lymphadenopathy is seen Thyroid: Normal in size and heterogeneous in attenuation. Salivary glands: A calcified sialolith is noted in the left parotid gland. The salivary glands are ot herwise normal as imaged. Brain parenchyma: The visualized brain parenchyma at the skull base is normal in appearance noting ag e-related involutional change. Skeletal structures: The skeletal structures are osteopenic. Imaged portions of the calvarium at the skull base are within normal limits. The cervical spine appears intact noting multilevel spondylosis. No lytic or blastic lesion is seen. The patient is edentulous. Sinuses and mastoids: There is mild mucosal thickening in the right maxillary antrum. The remaining v isualized paranasal sinuses are clear. The mastoid air cells are well pneumatized. Lung apices: Emphysematous change is seen in the upper lobes. A right upper lobe paramediastinal mass is partially visualized and measures up to 3 cm. Airspace consolidation is seen in the right upper l obe. IMPRESSION: 1. Significantly suboptimal examination without IV contrast. 2. There is diffuse soft tissue edema throughout the soft tissues of the neck, greatest involving the superficial soft tissues. There is also mild edema of the pharyngeal soft tissues. The appearance richardson ggests fluid overload. Clinical correlation will be required. 3. The airway is patent. 4. Emphysema and a right upper lobe mass lesion are partially imaged. 5. Patchy airspace consolidation is seen in the right upper lobe. 6. Additional findings as above. ACT 112: Negative or not required by law. Electronically signed by: Rome Armendariz M.D. 08/27/2020 8:54 AM
[2020-08-27] MEDS ORDERED: FUROSEMIDE 40 MG in SYRINGE 0 ML IV ONE (09:00)
[2020-08-27] MEDS ORDERED: POTASSIUM CHLORIDE 20 MEQ/15 ML UDC PO ONE (09:00)
--- NOTE | 2020-08-27 10:48 | Gastrointestinal Consultation ---
Date of Consultation August 27, 2020 Assessment & Plan (1) Dysphagia: -No plan for an invasive GI work up due to pulmonary status. -Can consider HAND POTTER evaluation. -Recommend palliative care consultation and discussion of care goals with family. Thank you for allowing us to participate in the care of this patient. If you have any questions or concerns, please do not hesitate to contact us. History of Present Illness Reason for Consultation: Dysphagia Requesting Physician: Dr. Sánchez Attending Physician: Adam Lopez DO History of Present Illness Patient is a very frail 75 y.o. with a history of lung cancer and chronic dysphagia previously evaluated by Dr. Pettit and Rafaela Aden PA-C. He had a video swallow and barium swallow with noted aspiration. 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 He is now admitted for concerns over poor PO intake and dehydration. He remains on BiPAP respiratory support with low 90's saturation. He reports dysphagia with all consistencies. Allergies Allergy/AdvReac Type Severity Reaction Status Date / Time bee venom protein (honey bee) Allergy Intermediate swelling Verified 08/26/20 15:12 bupropion AdvReac Intermediate Palpitation Verified 08/26/20 15:12 s formoterol AdvReac Intermediate Anxiety Verified 08/26/20 15:12 peas AdvReac Intermediate nausea and Verified 08/26/20 15:12 vomiting tramadol AdvReac Intermediate cutaneous Verified 08/26/20 15:12 hypersensitivity aspirin AdvReac Unknown INTERNAL Verified 08/26/20 15:12 BLEEDING, TOLD NOT TO TAKE LG DOSE Home Medications Medication Instructions Recorded Confirmed Type docusate sodium 100 mg PO QAM #0 06/16/13 08/26/20 History tamsulosin [Flomax] 0.8 mg PO HS #0 cap 05/04/15 08/26/20 History cyanocobalamin (vitamin B-12) 500 mcg PO QAM #0 tab 11/16/16 08/26/20 History ipratropium bromide 1 spray INTRANASAL TID PRN #0 11/16/16 08/26/20 History nitroglycerin 0.4 mg SUBLINGUAL TID PRN #0 11/16/16 08/26/20 History albuterol sulfate 2 puff INHALATION Q6H PRN #0 10/19/17 08/26/20 History tacrolimus [Prograf] 1 mg PO BID 09/07/18 08/26/20 History aspirin 81 mg PO QAM 10/23/18 08/26/20 History fluticasone propionate [Flonase 1 spray INTRANASAL BID 10/23/18 08/26/20 History Allergy Relief] sodium bicarbonate 1,300 mg PO BID 10/23/18 08/26/20 History isosorbide mononitrate 120 mg PO QAM #60 tab 09/07/19 08/26/20 Rx pantoprazole [Protonix] 40 mg PO QAM 01/15/20 08/26/20 History Gemcitabine Inj 1,100 mg IV WK 03/11/20 08/26/20 History calcium carbonate-vitamin D3 1 tab PO BID 03/11/20 08/26/20 History cholecalciferol (vitamin D3) 50 mcg PO DAILY 03/11/20 08/26/20 History [Vitamin D3] food supplemt, lactose-reduced 1 ea PO BID 03/11/20 08/26/20 History ketoconazole 1 applic TOPICAL DAILY 03/11/20 08/26/20 History nicotine 1 patch TRANSDERMAL DAILY 03/11/20 08/26/20 History olodaterol 2 inh INHALATION DAILY 03/11/20 08/26/20 History pramipexole 0.25 mg PO HS 03/11/20 08/26/20 History sulfamethoxazole-trimethoprim 1 tab PO 3XWK 03/11/20 08/26/20 History [Bactrim DS] lisinopril 20 mg PO DAILY #30 tab 03/13/20 08/26/20 Rx magnesium oxide 400 mg PO BID #60 tab 03/13/20 08/26/20 Rx metoprolol tartrate 50 mg PO BID #60 tab 03/13/20 08/26/20 Rx sodium chloride 3.5 % for 3 ml INHALATION BID #240 ml 04/24/20 08/26/20 Rx nebulization lidocaine 1 patch TOPICAL DAILY #15 ea 05/28/20 08/26/20 Rx furosemide 40 mg tablet 40 mg PO DAILY #30 tab 06/16/20 08/26/20 Rx hydrocodone 7.5 mg-acetaminophen 15 ml PO Q6H PRN 06/16/20 08/26/20 History 325 mg/15 mL oral solution amlodipine 10 mg PO DAILY 07/15/20 08/26/20 History azithromycin 250 mg PO 3XWK 07/15/20 08/26/20 History coal tar 1 applic TOPICAL Q OTHER DAY 07/15/20 08/26/20 History ferrous sulfate 220 mg PO BID 07/15/20 08/26/20 History naloxone 0.4 mg INTRANASAL DIRECTED PRN 07/15/20 08/26/20 History ondansetron HCl [Zofran] 8 mg PO Q8H PRN 07/15/20 08/26/20 History atorvastatin 20 mg tablet 10 mg PO HS tab 07/21/20 08/26/20 History cetirizine 10 mg tablet 5 mg PO DAILY PRN tab 07/21/20 08/26/20 History dexamethasone 4 mg tablet 25 mg PO DIRECTED PRN tab 07/21/20 08/26/20 History prednisone 20 mg tablet 40 mg PO DAILY tab 07/21/20 08/26/20 History Patient History Medical History Abnormal ECG Acute hyponatremia Anemia chronic, baseline hgb 9-10 range per chart review Atrial fibrillation with rapid ventricular response Atypical chest pain Chest pain CKD (chronic kidney disease) stage 4, GFR 15-29 ml/min under surveillance, no dialysis Colon cancer per records/pt denies hx of colon cancer COPD (chronic obstructive pulmonary disease) COPD (chronic obstructive pulmonary disease) with emphysema Degenerative disc disease Dysphagia Hiatal hernia History of cirrhosis of liver Hypertension Hypotension, unspecified LBBB (left bundle branch block) chronic Lung cancer s/p multiple radiation tx, completed 06/2019--pt states on 02/17/2020 he currently is going through chemo treatments Lung nodule Myocardial Infarction Possible, evidence of old infarct on remote EKG Poor historian Squamous cell lung cancer Surgical History H/O liver transplant 1992 History of anesthesia reaction Urinary retention History of bronchoscopy recent--11/20/2019 navigational bronchoscopy: 02/27/19: Grade view 1, MAC#3, ETT 8.5 at [facility] History of cardiac cath 2013 with 2 stents placed History of cataract surgery RT/LEFT History of cholecystectomy History of colonoscopy History of coronary artery bypass graft CABGx2 (2013) History of esophagogastroduodenoscopy (EGD) History of heart artery stent X 2 2013 History of liver biopsy History of open reduction and internal fixation (ORIF) procedure LEFT HIP History of tonsillectomy History of tooth extraction Patella fracture REPAIRED Family History Mother , age 92 old age Family history of diabetes mellitus Brother , diabetes does not remember age Family history of diabetes mellitus Cancer Family history of esophageal cancer Father , CVA does not remember age No problems noted. Brother , age early 40s lymph nodes No problems noted. Sister , unknown No problems noted. Sister , COPD No problems noted. Sister No problems noted. Son No problems noted. Son No problems noted. Daughter No problems noted. Daughter No problems noted. Other No family history of adverse response to anesthesia Social History Smoking Status: Former smoker Tobacco Type: Cigarettes Age Started Using Tobacco: 13; Years Smoked: 40; Second Hand Exposure: No; Do You Dip or Chew Tobacco: No; Tobacco Cessation Education Requested by Patient: No Hx Alcohol Use: Yes Alcohol type: beer Alcohol Intake Frequency Comment: 1-2 beers per week Hx Substance Use: No Preferred Language: Chinese Communication Ability: Effective Hearing Ability: Normal Mirror Specialist Required: No Beliefs That Will Affect Care: None marital status: Unknown Current Living Situation: Alone Current Living Situation Comment: lives alone, at [facility] current occupational status: retired 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, 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 [employer] Other Information That Helps Us Care for You: No Feels Safe at Home: Yes Safety Concerns: Feels Safe At This Time Childhood Exposure to Second-Hand Smoke: Yes caffeine: Yes (coffee twice a week ) during the past year weight has: decreased > 10 lbs Dental Care, Regularly: No Seatbelt Use: always Sunscreen Use: No Assistive Devices: BiPap Review of Systems Ear, Nose, Mouth, Throat: as per Subjective / HPI Gastrointestinal: no abdominal pain Physical Exam Constitutional: + cachectic and + in distress Respiratory: + respiratory distress and + labored breathing Auscultation: + rhonchi Cardiovascular: Rate/Rhythm: regular rate and regular rhythm Gastrointestinal (Abdomen): Inspection/Auscultation: normal bowel sounds Percussion/Palpation: abdomen soft; abdomen nontender Psychiatric: A+Ox3, euthymic affect Results & Data ([facility]) Vital Signs (Past 12 Hours) Vital Signs Temp Pulse Pulse Resp BP BP Pulse Ox 08/27/20 08:00 75 28 H 94 08/27/20 07:00 36.2 C L 79 20 108/59 L 98 08/27/20 05:07 82 08/27/20 05:06 74 08/27/20 03:15 94 H 21 96 08/27/20 02:29 36.6 C 86 20 112/52 L 96 08/27/20 01:59 36.3 C L 80 20 110/61 93 08/27/20 01:44 36.7 C 72 20 101/57 L 93 08/27/20 01:28 36.7 C 74 20 113/57 L 94 08/26/20 23:00 36.9 C 83 20 119/61 95 PG Care Time/CCT Total # of Minutes Spent Total Time Spent with Patient: Total time spent is greater than 50% in coordination of care (as documented) at patient's floor/unit and/or counseling patient: Coding Level of Care Code 05406 Initial Inpt Care Lvl 3 Diagnoses Dysphagia R13.10
--- NOTE | 2020-08-27 11:32 | Palliative Care Consultation ---
Date of Consultation August 27, 2020 Assessment & Plan (1) Palliative care encounter: This is a 75-year-old male who presented to the [facility] with dysphagia. He has an extended PMH that includes lung cancer s/p radiation and chemo, anemia of chronic disease, and COPD. The patient does live alone with some assistance with home health and hospice, but has recently revoked hospice due to dissatisfaction with the service. The patient's oxygen needs increased over the past 12 hours and is now on Bipap. Palliative Medicine was consulted to discuss goals of care with the patient and family. I met with Shawn who was sitting upright with his BiPAP mask on, using accessory muscles to breathe. He was AAOx3 and able to answer questions. 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 He expressed that both his son, Rome and his daughter Fina, live within a mile of him. He said that he would really like to go home and if he is dying, he would like to at home. I asked him what is important to him and he said "being comfortable and being at home" Along with some medication changes, I talked with him about adding scheduled Morphine in addition to the IV Morphine PRN ordered to see if that helps with his breathing. I explained how the medication works and we could see how he responds to it, but I did talk with him about the dying process and he did express that he was not scared of dying. I talked to him about anxiety and how that can cause additional breathing stressors. I do not think he is experiencing anxiety at this time and he stated he does not feel anxious. I did call his son, Rome at [phone] and talked to him at length. He said how rapidly he has declined over the past few months since stopping chemotherapy. His father is very cachectic and frail and I think the dysphagia may be related to his advanced disease state and decline. He did confirm that he would not want to be intubated. We talked about air hunger and goal to get him off of the bipap mask, but talked about comfort transition and he is supportive of trying the scheduled Morphine and seeing how he responds to that. Both him and his sister plan to come in to the hospital later on today. Based on his breathing on the BiPAP, I forsee him declining more rapidly and anticipate a transition to full comfort and likely requiring a morphine infusion to achieve full comfort measures. Palliative Medicine will follow. (2) COPD (chronic obstructive pulmonary disease): COPD type: unspecified COPD Qualified Code(s): J44.9 - Chronic obstructive pulmonary disease, unspecified (3) Weakness: (4) Dysphagia: Dysphagia type: unspecified Qualified Code(s): R13.10 - Dysphagia, unspecified (5) Shortness of breath: (6) Lung cancer: History of Present Illness Reason for Consultation: Goals of care Requesting Physician: Dr. Ham Attending Physician: Adam Lopez DO History of Present Illness This is a 75-year-old male who presented to the [facility] with dysphagia. He has an extended PMH that includes lung cancer s/p radiation and chemo, anemia of chronic disease, and COPD. The patient does live alone with some assistance with home health and hospice, but has recently revoked hospice due to dissatisfaction with the service. The patient's oxygen needs increased over the past 12 hours and is now on Bipap. Palliative Medicine was consulted to discuss goals of care with the patient and family. Please see A/P for further details. Thanks for involving Palliative Medicine with this individual. Allergies Allergy/AdvReac Type Severity Reaction Status Date / Time bee venom protein (honey bee) Allergy Intermediate swelling Verified 08/26/20 15:12 bupropion AdvReac Intermediate Palpitation Verified 08/26/20 15:12 s formoterol AdvReac Intermediate Anxiety Verified 08/26/20 15:12 peas AdvReac Intermediate nausea and Verified 08/26/20 15:12 vomiting tramadol AdvReac Intermediate cutaneous Verified 08/26/20 15:12 hypersensitivity aspirin AdvReac Unknown INTERNAL Verified 08/26/20 15:12 BLEEDING, TOLD NOT TO TAKE LG DOSE Home Medications Medication Instructions Recorded Confirmed Type docusate sodium 100 mg PO QAM #0 06/16/13 08/26/20 History tamsulosin [Flomax] 0.8 mg PO HS #0 cap 05/04/15 08/26/20 History cyanocobalamin (vitamin B-12) 500 mcg PO QAM #0 tab 11/16/16 08/26/20 History ipratropium bromide 1 spray INTRANASAL TID PRN #0 11/16/16 08/26/20 History nitroglycerin 0.4 mg SUBLINGUAL TID PRN #0 08/16/17 05/26/21 History albuterol sulfate 2 puff INHALATION Q6H PRN #0 10/19/17 08/26/20 History tacrolimus [Prograf] 1 mg PO BID 09/07/18 08/26/20 History aspirin 81 mg PO QAM 10/23/18 08/26/20 History fluticasone propionate [Flonase 1 spray INTRANASAL BID 10/23/18 08/26/20 History Allergy Relief] sodium bicarbonate 1,300 mg PO BID 10/23/18 08/26/20 History isosorbide mononitrate 120 mg PO QAM #60 tab 09/07/19 08/26/20 Rx pantoprazole [Protonix] 40 mg PO QAM 01/15/20 08/26/20 History Gemcitabine Inj 1,100 mg IV WK 03/11/20 08/26/20 History calcium carbonate-vitamin D3 1 tab PO BID 03/11/20 08/26/20 History cholecalciferol (vitamin D3) 50 mcg PO DAILY 03/11/20 08/26/20 History [Vitamin D3] food supplemt, lactose-reduced 1 ea PO BID 03/11/20 08/26/20 History ketoconazole 1 applic TOPICAL DAILY 03/11/20 08/26/20 History nicotine 1 patch TRANSDERMAL DAILY 03/11/20 08/26/20 History olodaterol 2 inh INHALATION DAILY 03/11/20 08/26/20 History pramipexole 0.25 mg PO HS 03/11/20 08/26/20 History sulfamethoxazole-trimethoprim 1 tab PO 3XWK 03/11/20 08/26/20 History [Bactrim DS] lisinopril 20 mg PO DAILY #30 tab 03/13/20 08/26/20 Rx magnesium oxide 400 mg PO BID #60 tab 03/13/20 08/26/20 Rx metoprolol tartrate 50 mg PO BID #60 tab 03/13/20 08/26/20 Rx sodium chloride 3.5 % for 3 ml INHALATION BID #240 ml 04/24/20 08/26/20 Rx nebulization lidocaine 1 patch TOPICAL DAILY #15 ea 05/28/20 08/26/20 Rx furosemide 40 mg tablet 40 mg PO DAILY #30 tab 06/16/20 08/26/20 Rx hydrocodone 7.5 mg-acetaminophen 15 ml PO Q6H PRN 06/16/20 08/26/20 History 325 mg/15 mL oral solution amlodipine 10 mg PO DAILY 07/15/20 08/26/20 History azithromycin 250 mg PO 3XWK 07/15/20 08/26/20 History coal tar 1 applic TOPICAL Q OTHER DAY 07/15/20 08/26/20 History ferrous sulfate 220 mg PO BID 07/15/20 08/26/20 History naloxone 0.4 mg INTRANASAL DIRECTED PRN 07/15/20 08/26/20 History ondansetron HCl [Zofran] 8 mg PO Q8H PRN 07/15/20 08/26/20 History atorvastatin 20 mg tablet 10 mg PO HS tab 07/21/20 08/26/20 History cetirizine 10 mg tablet 5 mg PO DAILY PRN tab 07/21/20 08/26/20 History dexamethasone 4 mg tablet 25 mg PO DIRECTED PRN tab 07/21/20 08/26/20 History prednisone 20 mg tablet 40 mg PO DAILY tab 07/21/20 08/26/20 History Patient History Medical History (Updated 08/27/20 @ 12:30 by KARIN Carvalho) Abnormal ECG Acute hyponatremia Anemia chronic, baseline hgb 9-10 range per chart review Atrial fibrillation with rapid ventricular response Atypical chest pain Chest pain CKD (chronic kidney disease) stage 4, GFR 15-29 ml/min under surveillance, no dialysis Colon cancer per records/pt denies hx of colon cancer COPD (chronic obstructive pulmonary disease) COPD (chronic obstructive pulmonary disease) with emphysema Degenerative disc disease Dysphagia Hiatal hernia History of cirrhosis of liver Hypertension Hypotension, unspecified LBBB (left bundle branch block) chronic Lung cancer s/p multiple radiation tx, completed 06/2019--pt states on 02/17/2020 he currently is going through chemo treatments Lung nodule Myocardial Infarction Possible, evidence of old infarct on remote EKG Palliative care encounter Poor historian Squamous cell lung cancer Surgical History H/O liver transplant 1992 History of anesthesia reaction Urinary retention History of bronchoscopy recent--11/20/2019 navigational bronchoscopy: 02/27/19: Grade view 1, MAC#3, ETT 8.5 at [facility] History of cardiac cath 2013 with 2 stents placed History of cataract surgery RT/LEFT History of cholecystectomy History of colonoscopy History of coronary artery bypass graft CABGx2 (2014) History of esophagogastroduodenoscopy (EGD) History of heart artery stent X 2 2013 History of liver biopsy History of open reduction and internal fixation (ORIF) procedure LEFT HIP History of tonsillectomy History of tooth extraction Patella fracture REPAIRED Family History Mother , age 92 old age Family history of diabetes mellitus Brother , diabetes does not remember age Family history of diabetes mellitus Cancer Family history of esophageal cancer Father , CVA does not remember age No problems noted. Brother , age early 40s lymph nodes No problems noted. Sister , unknown No problems noted. Sister , COPD No problems noted. Sister No problems noted. Son No problems noted. Son No problems noted. Daughter No problems noted. Daughter No problems noted. Other No family history of adverse response to anesthesia Social History Smoking Status: Former smoker Tobacco Type: Cigarettes Age Started Using Tobacco: 13; Years Smoked: 40; Second Hand Exposure: No; Do You Dip or Chew Tobacco: No; Tobacco Cessation Education Requested by Patient: No Hx Alcohol Use: Yes Alcohol type: beer Alcohol Intake Frequency Comment: 1-2 beers per week Hx Substance Use: No Preferred Language: Czech Communication Ability: Effective Hearing Ability: Normal Paralegal Secretary Required: No Beliefs That Will Affect Care: None marital status: Unknown Current Living Situation: Alone Current Living Situation Comment: lives alone, at [facility] current occupational status: retired 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, 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 [employer] Other Information That Helps Us Care for You: No Feels Safe at Home: Yes Safety Concerns: Feels Safe At This Time Childhood Exposure to Second-Hand Smoke: Yes caffeine: Yes (coffee twice a week ) during the past year weight has: decreased > 10 lbs Dental Care, Regularly: No Seatbelt Use: always Sunscreen Use: No Assistive Devices: BiPap Review of Systems Review of Systems: [place] System Assessment Scale: Pain: 0/3 Shortness of breath: 2/3 Anxiety: 0/3 Tiredness: 1/3 Palliative Performance Scale: 30% Physical Exam Constitutional: + acute distress, + cachectic, + frail appearing and cooperative ENMT: Nose: + dry nasal mucous membranes Respiratory: + labored breathing and + uses accessory muscles Auscultation: + diminished lung sounds Cardiovascular: Rate/Rhythm: regular rate and regular rhythm Heart Sounds: normal S1 and normal S2 Extremities: normal capillary refill; no edema Gastrointestinal (Abdomen): normal bowel sounds, soft, nontender, no hepatosplenomegaly Skin: + pallor Psychiatric: A+Ox3, euthymic affect Insight: good insight Judgement: good judgement Results & Data ([facility]) Vital Signs (Past 12 Hours) Vital Signs Temp Pulse Pulse Resp BP BP Pulse Ox 08/27/20 08:00 75 28 H 94 08/27/20 07:00 36.2 C L 79 20 108/59 L 98 08/27/20 05:07 82 08/27/20 05:06 74 08/27/20 03:15 94 H 21 96 08/27/20 02:29 36.6 C 86 20 112/52 L 96 08/27/20 01:59 36.3 C L 80 20 110/61 93 08/27/20 01:44 36.7 C 72 20 101/57 L 93 08/27/20 01:28 36.7 C 74 20 113/57 L 94 PG Care Time/CCT Total # of Minutes Spent Total Time Spent with Patient: Total time spent is greater than 50% in coordination of care (as documented) at patient's floor/unit and/or counseling patient: 70 minutes with > 50% of that time spent assessing the patient, discussing goals of care, providing symptom management, and collaborating with IDT Coding Level of Care Code 88961 Inpt Consult Level 3 Diagnoses Palliative care encounter Z51.5 COPD (chronic obstructive pulmonary disease) J44.9 COPD type: unspecified COPD Weakness R53.1 Dysphagia R13.10 Dysphagia type: unspecified Shortness of breath R06.02 Lung cancer C34.90 Time Spent (min) 70
[2020-08-27] MEDS: MoRPHine SULFATE 2 MG/ML CARP IV PRN ×3 (11:48→21:25)
[2020-08-27] MEDS: MoRPHine SULFATE 2 MG/ML CARP IV SCH ×2 (13:27→19:00)
[2020-08-27] MEDS ORDERED: METOPROLOL TARTRATE 1 MG/ML VIAL IV STA (16:46)
[2020-08-27] MEDS ORDERED: DIGOXIN 125 MCG in SYRINGE 9.5 ML IV ONE (17:00)
[2020-08-28] MEDS: MoRPHine SULFATE 2 MG/ML CARP IV SCH ×4 (01:31→18:22)
[2020-08-28] MEDS: MoRPHine SULFATE 2 MG/ML CARP IV PRN ×2 (02:49→04:54)
[2020-08-28 03:47] VITALS: TEMP 97.3
[2020-08-28 07:32] VITALS: BP 99/53
[2020-08-28 07:45] VITALS: PULSE 55; O2SAT 88
[2020-08-28] MEDS: FLUTICASONE PROPIONATE NA SPR 16 GM BTL SCH ×2 (07:59→21:06)
[2020-08-28] MEDS ORDERED: STAT IV Infusion **Titration per Protocol STA (08:02)
[2020-08-28] MEDS ORDERED: ATROPINE SULFATE 1% OP SOLN 5 ML BTL SL PRN (08:03)
[2020-08-28] MEDS ORDERED: LORazepam 0.5 MG/1 ML VIAL IV PRN ×2 (08:03→10:23)
[2020-08-28] MEDS ORDERED: LORazepam 2 MG/4 ML VIAL ONE (08:13)
[2020-08-28] MEDS ORDERED: GLYCOPYRROLATE 0.2 MG/ML VIAL IV PRN (08:15)
[2020-08-28] MEDS ORDERED: LORazepam 0.5 MG/1 ML VIAL IV STA ×2 (08:16→09:57)
[2020-08-28] MEDS ORDERED: MoRPHine SULF/SW 240 MG/240 ML BTL IV SCH (08:30)
[2020-08-28] MEDS ORDERED: MoRPHine SULFATE 2 MG/ML CARP IV STA (09:57)
[2020-08-28] MEDS ORDERED: MoRPHine SULFATE 2 MG/ML CARP IV PRN (10:23)
--- NOTE | 2020-08-28 14:06 | Palliative Care Progress Note ---
Date of Service August 28, 2020 Assessment & Plan (1) Palliative care encounter: Bipap withdrawn per Shawn's wish in his discussion with Dr. Lopez. He is now on morphine infusion and appears comfortable. FAmily at bedside. Discussed what to expect. Anticipate within hours to a day or two. (2) Acute respiratory failure with hypoxia: (3) COPD (chronic obstructive pulmonary disease): (4) Dysphagia: Admission and Anticipated Discharge Date Admission Date: August 28, 2020 Subjective Focus of care now comfort only per Shawn's request. He is on morphine infusion with prn ativan. Family at bedside. He is obtunded and appears comfortable. Review of Systems Review of Systems: Unobtainable due to reduced consciousness [place] Symptom Assessment Scale PainAD 0/3 Dyspnea by observation 0/3 Anxiety 0/3 Palliative Performance Score 10% Physical Exam Constitutional: + thin and + frail appearing Respiratory: + uses accessory muscles Cardiovascular: Extremities: no edema Gastrointestinal (Abdomen): Percussion/Palpation: abdomen soft Musculoskeletal: no mottling, warm to touch Neurologic: + obtunded Results & Data ([facility]) Vital Signs (Past 12 Hours) Vital Signs Temp Pulse Pulse Resp BP Pulse Ox 08/28/20 07:43 55 L 28 H 88 L 08/28/20 07:30 97.3 F L 66 22 99/53 L 75 L 08/28/20 03:39 102 H 24 96 08/28/20 03:19 94 H 08/28/20 03:00 97.3 F L 84 20 103/54 L 97 PG Care Time/CCT Total # of Minutes Spent Total Time Spent with Patient: Total time spent is greater than 50% in coordination of care (as documented) at patient's floor/unit and/or counseling patient: Coding Level of Care Code 66206 Subseq Hosp Care Lvl 2 Diagnoses Palliative care encounter Z51.5 Acute respiratory failure with hypoxia J96.01 COPD (chronic obstructive pulmonary disease) J44.9 COPD type: unspecified COPD Dysphagia R13.10 Dysphagia type: unspecified (1) COPD (chronic obstructive pulmonary disease) COPD type: unspecified COPD Qualified Code(s): J44.9 - Chronic obstructive pulmonary disease, unspecified (2) Dysphagia Dysphagia type: unspecified Qualified Code(s): R13.10 - Dysphagia, unspecified
--- NOTE | 2020-08-28 21:09 | Hospitalist Progress Note ---
Date of Service August 28, 2020 Assessment & Plan (1) Acute respiratory failure with hypoxia: oxygen requirements went from 4L NC to BIPAP over night on 08/27 due to acute pulmonary edema but also due to aspiration, suspect he has been aspirating chronically multiple attempts made to remove BIPAP, went into afib with RVR on 08/27 and then over night he became hypoxemic and bradycardic taking off the BIPAP triggered more respiratory distress he wanted to have it removed and transition to comfort care in the morning of 08/28 Morphine drip, PRN Morphine pushes, Ativan, Atropine, Glycoyrrolate (2) Dysphagia: Unclear if the patient has obstruction secondary to stricture or of metastatic disease versus other causes either way, no work up planned as he has respiratory distress and hypoxia suspect that the dysphagia was causing aspiration making respiratory status worse (3) Dehydration: was hydrated initially and given unit of PRBC went into flash pulmonary edema stopped fluids and gave Lasix to try to make breathing more comfortable (4) COPD (chronic obstructive pulmonary disease): no wheezing, acute hypoxia combination of pulmonary edema and aspiration (5) Hypokalemia: IV K rider being infused now, will recheck and replete further as necessary. Check magnesium. (6) Anemia: Likely anemia of chronic disease (7) Lung cancer: Patient is status post radiation and chemotherapy. Follows with Dr. Pierre as noted above. palliative care involved, will transition to hospice, either inpatient or at home Admission and Anticipated Discharge Date Admission Date: August 28, 2020 Subjective patient could not come off BIPAP yesterday he went into Afib with RVR when off for just a few minutes last night he became bradycardic and hypoxemic quickly he is very uncomfortable, hates having the mask on, constantly asking to remove it saw him first thing this morning, told him that if we remove the mask he will pass away he said "that's fine, I don't care" he agreed that we should get his family in here to be with him, I called his son immediately and he brought in his brother and two sisters once he was comfortable on Morphine drip and Ativan 0.5mg IV we removed BIPAP and placed on 15L oxymask he remained comfortable and we titrated oxygen down comfort measures only order placed PRN Ativan, Atropine drops, Glycopyrrolate checked on him later in the day, he remained comfortable Review of Systems Review of Systems: Unobtainable due to cognitive status Physical Exam Constitutional: well developed, + acute distress, + ill appearing, + cachectic and + frail appearing Neck: trachea midline, no thyromegaly Respiratory: + respiratory distress, + labored breathing, + uses accessory muscles (prior to comfort measures), + cough and + tachypneic Auscultation: + rhonchi (bilaterally) Cardiovascular: RRR, no murmur, no edema Gastrointestinal (Abdomen): normal bowel sounds, soft, nontender, no hepatosplenomegaly Musculoskeletal: Head/Neck/Chest: normocephalic, head atraumatic and neck supple Extremities: + abnormal strength and + muscle atrophy; no cyanosis, no clubbing and no petechiae Skin: no rashes, warm and dry Neurologic: CN's II-XI intact bilaterally, deep tendon reflexes 2+ bilaterally, moves all extremities and awake; no focal motor deficits Psychiatric: Orientation: alert and oriented x 3 Results & Data Results & Data [facility]) Medications Administered Current Inpatient Medications Albuterol (Albuterol Hfa 8 Gm Inhaler) 2 puffs INH Q6H PRN PRN Reason: Shortness Of Breath Stop: 09/25/20 20:54 Atropine Sulfate (Atropine Sulfate 1% Op Soln 5 Ml Btl) 4 drops SL Q1H PRN PRN Reason: Secretions or pulm congestion Stop: 09/27/20 08:02 Fluticasone Propionate (Fluticasone Propionate Na Spr 16 Gm Btl) 1 sprays NA BID [facility] Stop: 09/25/20 20:59 Last Admin: 08/28/20 21:06 Dose: Not Given Documented by: Glycopyrrolate (Glycopyrrolate 0.2 Mg/Ml Vial) 0.2 mg IV Q4H PRN PRN Reason: Secretions or Pulm Congestion Stop: 09/27/20 08:14 Heparin Sodium (Porcine) (Heparin Sod 5,000 Unit/0.5 Ml Vial) 5,000 units SQ Q12 [facility] Stop: 09/25/20 20:59 Last Admin: 08/26/20 22:17 Dose: Not Given Documented by: Morphine Sulfate (Morphine Sulf/Sw) 240 mg in 240 mls @ 1 mls/hr IV .Q96H ALEXYS; Protocol Stop: 09/11/20 08:29 Last Titration: 08/28/20 10:15 Dose: 2 mg/hr, 2 mls/hr Documented by: Lorazepam (Ativan) 0.5 mg in 1 mls @ 1 mls/min IV Q1H PRN PRN Reason: Anxiety/Agitation Stop: 09/27/20 08:02 Morphine Sulfate (Morphine Sulfate 2 Mg/Ml Carp) 2 mg IV Q6H ALEXYS Stop: 09/10/20 12:59 Last Admin: 08/28/20 18:22 Dose: Not Given Documented by: Morphine Sulfate (Morphine Sulfate 2 Mg/Ml Carp) 2 mg IV Q1H PRN PRN Reason: Dyspnea Stop: 09/10/20 08:35 Ondansetron HCl (Ondansetron Inj 2 Mg/Ml 2 Ml Vial) 4 mg IV Q6H PRN PRN Reason: Nausea Stop: 09/25/20 20:54 PG Care Time/CCT Total # of Minutes Spent Total Time Spent: 45 Total Time Spent with Patient: Total time spent is greater than 50% in coordination of care (as documented) at patient's floor/unit and/or counseling patient: spent 35 minutes total at the bedside speaking with patient and family members, transitioning to comfort care 10 minutes on chart review, documentation, speaking with Dr. Espinal Coding Level of Care Code 56334 Subseq Hosp Care Lvl 3 Diagnoses Acute respiratory failure with hypoxia J96.01 Dysphagia R13.10 Dehydration E86.0 COPD (chronic obstructive pulmonary disease) J44.9 COPD type: unspecified COPD Hypokalemia E87.6 Anemia D64.9 Lung cancer C34.90 (1) COPD (chronic obstructive pulmonary disease) COPD type: unspecified COPD Qualified Code(s): J44.9 - Chronic obstructive pulmonary disease, unspecified
--- NOTE | 2020-08-28 22:23 | Death Pronouncement Note ---
Date of Service August 28, 2020 Pronouncement Note Admission Date Admission Date: August 28, 2020 Date and Time of Date of : 08/28/20 Time of : 22:00 Contributing Factors (1) Acute respiratory failure with hypoxia: (2) Dysphagia: (3) Dehydration: (4) COPD (chronic obstructive pulmonary disease): (5) Hypokalemia: (6) Anemia: (7) Lung cancer: Additional Data Confirmation of : no pulse, no respirations, no heart sounds and pupils fixed and dilated Family: at bedside Attending physician: Adam Lopez DO Resident Activity Tracking Resident Involvement: Resident Care Provided Care Provided: Adult Hospital Medicine
--- NOTE | 2020-08-29 07:29 | Discharge Summary ---
Date of Service August 28, 2020 Principal Diagnosis Acute hypoxic respiratory failure from aspiration Discharge Exam no pulse, no respirations, no heart tones, no breath sounds, pupils fixed, unresponsive Discharge Data Allergies Allergy/AdvReac Type Severity Reaction Status Date / Time bee venom protein (honey bee) Allergy Intermediate swelling Verified 08/26/20 15:12 bupropion AdvReac Intermediate Palpitation Verified 08/26/20 15:12 s formoterol AdvReac Intermediate Anxiety Verified 08/26/20 15:12 peas AdvReac Intermediate nausea and Verified 08/26/20 15:12 vomiting tramadol AdvReac Intermediate cutaneous Verified 08/26/20 15:12 hypersensitivity aspirin AdvReac Unknown INTERNAL Verified 08/26/20 15:12 BLEEDING, TOLD NOT TO TAKE LG DOSE Consultations 08/26/20 15:48 ED Decision to Admit Stat 08/26/20 20:55 Consult Palliative Care Routine Procedures Performed Operation Date: 08/27/20 18:00 <No data on this case meets the specified criteria> Ordered Studies 08/26/20 20:55 CT chest diagnostic wo con Urgent CT soft tissue neck wo con Urgent Hospital Course (1) Acute respiratory failure with hypoxia: oxygen requirements went from 4L NC to BIPAP over night on 08/27 due to acute pulmonary edema but also due to aspiration, suspect he has been aspirating chronically multiple attempts made to remove BIPAP, went into afib with RVR on 08/27 and then over night he became hypoxemic and bradycardic taking off the BIPAP triggered more respiratory distress he wanted to have it removed and transition to comfort care in the morning of 08/28 Morphine drip, PRN Morphine pushes, Ativan, Atropine, Glycoyrrolate family came to be with him at the bedside he peacefully at 22:00 (2) Dysphagia: Unclear if the patient has obstruction secondary to stricture or of metastatic disease versus other causes either way, no work up planned as he has respiratory distress and hypoxia suspect that the dysphagia was causing aspiration making respiratory status worse (3) Dehydration: was hydrated initially and given unit of PRBC went into flash pulmonary edema stopped fluids and gave Lasix to try to make breathing more comfortable (4) COPD (chronic obstructive pulmonary disease): no wheezing, acute hypoxia combination of pulmonary edema and aspiration (5) Hypokalemia: replaced by IV K rider no further labs, comfort care (6) Anemia: Likely anemia of chronic disease (7) Lung cancer: Patient is status post radiation and chemotherapy. Follows with Dr. Pierre as noted above. palliative care involved, will transition to inpatient comfort care Total Time Total Time Spent Total Time Spent (In Minutes): 45 Total Time Includes: Examination of the Patient and Other (time spent with patien and family earlier in the day transitioning to comfort) Discharge Plan Discharge Items Patient Disposition: Discharge Diagnosis: Addtl Attending Provider Instructions: following decision to pursue comfort measures with palliative care. Family at bedside. Coding Level of Care Code D/C Day Management >30 mins Diagnoses Acute respiratory failure with hypoxia J96.01 Dysphagia R13.10 Dehydration E86.0 COPD (chronic obstructive pulmonary disease) J44.9 COPD type: unspecified COPD Hypokalemia E87.6 Anemia D64.9 Lung cancer C34.90
== END 2020-08-28 22:00 | disposition expired | DRG 391 ==
LOC: 2N 13:03 → ED 13:03 → SUATTDRO 16:38 → 2N 20:28